=== PATIENT | male | born 1935 | race Caucasian/White ===

== ENCOUNTER 2019-10-30 18:41 | Inpatient (IN) | payer MEDICARE, BC, SELFPAY ==
[2019-10-30 18:49] VITALS: BP 175/83; PULSE 67; RESP 18; TEMP 36.4; O2SAT 97; BMI 29.0
[2019-10-30 19:25] LABS: Add Manual Diff / Slide Review NO; Basophils Absolute Auto 0 /uL (0-100); Basophils Percent Auto 0.1 % (0-2); Eosinophils Absolute Auto 0 /uL (0-450); Eosinophils Percent Auto 0.2 % (2-4); Hematocrit 42.2 % (41-53); Hemoglobin 14.5 g/dL (13.5-17.5); Lymphocytes Absolute Auto 700 /uL (1100-4500); Lymphocytes Percent Auto 10.1 % (25-40); Mean Corpuscular HGB Conc 34.3 % (30-36); Mean Corpuscular Hemoglobin 34.1 PG (26-34); Mean Corpuscular Volume 99.4 fL (80-100); Monocytes Absolute Auto 600 /uL (0-900); Monocytes Percent Auto 8.4 % (3-14); Neutrophils Absolute Auto 5600 /uL (1500-7000); Neutrophils Percent Auto 81.2 % (50-75); Platelet Count 182 X10^3/uL (150-400); Red Blood Cell Count 4.24 X10^6/uL (4.5-5.9); Red Cell Distribution Width 13.6 % (11.6-14.8); White Blood Cell Count 6.8 X10^3/uL (4.5-11.0)
[2019-10-30 19:33] LABS: Prothrombin Time 11.8 SECONDS (10.1-12.7)
[2019-10-30 19:35] LABS: PTT Partial Thromboplastin Tim 27 SECONDS (26.4-36.2)
[2019-10-30 19:36] LABS: Alanine Aminotransferase 20 IU/L (<50); Albumin 4.9 g/dL (3.5-5.0); Albumin Globulin Ratio 1.4 (1.0-2.8); Alkaline Phosphatase 46 U/L (38-126); Aspartate Aminotransferase 28 IU/L (17-59); BUN Creatinine Ratio 22.9 (6-22); Blood Urea Nitrogen 32 mg/dL (9-20); Calcium 10.2 mg/dL (8.4-10.2); Carbon Dioxide 24 mmol/L (22-32); Chloride 102 mmol/L (98-107); Estimated Glomerular Filt Rate 48.3 mL/min (>60); Globulin 3.4 g/dL (1.7-4.1); Glucose 124 mg/dL (80-110); HEMOLYSIS < 15 (0-50); Lipase 34 U/L (23-300); Potassium 3.9 mmol/L (3.4-5.1); Sodium 137 mmol/L (137-145); Total Protein 8.3 g/dL (6.3-8.2)
--- NOTE | 2019-10-30 20:39 | DI.RAD.S_ITS ---
PROCEDURE: XR ACUTE ABDOMEN SERIES INDICATIONS: Abdominal pain TECHNIQUE: One view chest and two views of the abdomen were acquired. COMPARISON: [facility], CT, ABDOMEN/PELVIS WITH CONTRAST, 12/21/2016, 22:14. [facility], CR, ABDOMEN ACUTE SERIES, 11/27/2009, 8:29. FINDINGS: Surgical changes and devices: None. Chest: Lungs are clear. Mild cardiomegaly.. No pleural effusions. No pneumoperitoneum. Abdomen: Colon is diffusely dilated. Large amount of fecal debris. Transverse colon measures up to 11.5 cm. And not exclude sigmoid volvulus. No suspicious calcifications. Visualized solid organ contours appear normal. Bones: No suspicious bony lesions. IMPRESSION: Diffusely dilated colon with large amount of fecal debris. Transverse colon measures up to 11.5 cm. Cannot exclude sigmoid volvulus. Comment: It is noted that the patient is scheduled to undergo CT abdomen and pelvis. Dictated by: Aris Louis M.D. on 10/30/2019 at 21:11 Approved by: Aris Louis M.D. on 10/30/2019 at 21:15
--- NOTE | 2019-10-30 20:47 | ED_ITS ---
HPI - Abdominal Pain General Chief Complaint: Abdominal Pain Stated Complaint: bloated/painful stomach and mid chest/no BM Time Seen by Provider: 10/30/19 20:24 Source: patient and family Mode of arrival: Family Vehicle Limitations: no limitations History of Present Illness HPI narrative: 84-year-old male nonsmoker presents with his in the chief complaint of no bowel movements for approximately 10 days, decreased flatus and worsening abdominal pain. He denies any vomiting but has had nausea. He denies any fever chills nor injury. He has had no dysuria, frequency or urgency. He denies any history of liver failure or ascites. He states his pain is worse when he moves and improves with rest. He denies any abdominal surgeries or history of bowel obstruction. He has had no change in medications or diet MD complaint: abdominal pain Onset (ago): day(s) Pain Consistency: constant Location: diffuse Severity: moderate Quality: cramping and aching Radiation: none Migration to: no migration Relieving factors: rest Exacerbating factors: movement Associated symptoms: nausea and constipation Related Data Home Medications Medication Instructions Recorded Confirmed [MILK THISTLE] 140 mg PO DAILY #0 11/25/09 10/31/19 simvastatin 10 mg PO HS #0 12/21/16 10/30/19 aspirin 81 mg PO DAILY 10/30/19 10/30/19 diltiazem HCl 240 mg PO QAM 10/30/19 10/30/19 lisinopril-hydrochlorothiazide 1 tab PO DAILY 10/30/19 10/30/19 Allergies Allergy/AdvReac Type Severity Reaction Status Date / Time No Known Drug Allergies Allergy Verified 10/30/19 18:54 Review of Systems Constitutional Constitutional: Denies chills, Denies fatigue, Denies fever(s), Denies frequent falls, Denies lethargy and Denies weakness Eyes Eyes: Denies change in vision, Denies eye discharge, Denies irritation and Denies loss of vision ENT Ears, Nose, Mouth, and Throat: Denies change in voice, Denies dizziness, Denies neck pain, Denies sore throat and Denies throat swelling Cardiovascular Cardiovascular: Denies chest pain, Denies irregular heart rhythm, Denies lightheadedness, Denies palpitations, Denies dyspnea, Denies dyspnea on exertion and Denies orthopnea Respiratory Respiratory: Denies cough, Denies dyspnea, Denies dyspnea on exertion and Denies wheezing Gastrointestinal Gastrointestinal: Reports abdominal pain, Reports bloating, Denies change in bowel habits, Reports constipation, Denies diarrhea, Reports nausea and Denies vomiting Genitourinary Genitourinary: Denies hematuria, Denies flank pain, Denies urinary incontinence and Denies urinary urgency Musculoskeletal Musculoskeletal: Denies back pain, Denies muscle weakness, Denies neck pain, Denies numbness and Denies tingling Integumentary/Breasts Skin/Breast: Denies pruritus, Denies erythema, Denies rash and Denies wounds Neurologic Neurologic: Denies behavioral changes, Denies confusion, Denies dizziness, Denies frequent falls, Denies loss of vision, Denies numbness, Denies tingling and Denies weakness Psychiatric Psychiatric: Denies anxiety, Denies behavioral changes, Denies confusion, Denies depression, Denies homicidal ideation and Denies suicidal ideation Endocrine Endocrine: Denies fatigue, Denies flushing and Denies palpitations Hematologic/Lymphatic Hematologic/Lymphatic: Denies easy bruising Allergic/Immunologic Allergic/Immunologic: Denies urticaria, Denies throat swelling and Denies wheezing Patient History Social History household members: spouse Smoking Status: Never smoker alcohol intake: current Smoking Status: Never smoker alcohol intake frequency: 0-2 drinks per day Alcohol type: wine Exam Narrative Exam Narrative: GENERAL: [84] year old patient appears stated age. Well- nourished, well-developed patient, in mild distress. HEAD: Atraumatic. Normocephalic. EYES: Pupils equal round and reactive. Extraocular motions intact. No scleral icterus. No injection or drainage. ENT: Nose without bleeding, purulent drainage. Throat without erythema, tonsi llar hypertrophy or exudate. Airway patent. NECK: Trachea midline. Non tender CARDIOVASCULAR: Regular rate and rhythm without murmurs, gallops, or rubs. RESPIRATORY: Clear to auscultation. Breath sounds equal bilaterally. No wheezes, rales, or rhonchi. GASTROINTESTINAL: Abdomen firm, distended, no fluid wave, generally tender EXTREMITIES: No edema or joint tenderness. BACK: Nontender without deformity or crepitance. No flank tenderness. NEURO: AOx3. SKIN: No rash or erythema of visible areas Initial Vital Signs Initial Vital Signs: Vital Signs Temperature 97.5 F L 10/30/19 18:49 Pulse Rate 67 10/30/19 18:49 Respiratory Rate 18 10/30/19 18:49 Blood Pressure 175/83 H 10/30/19 18:49 Pulse Oximetry 97 10/30/19 18:49 Course Orders Ordered: Acetaminophen (Tylenol) 650 mg PO Q6HR PRN PRN Reason: Pain, Mild (1-3) Gabapentin (Neurontin) 300 mg PO BID [facility] Heparin Sodium (Porcine) (Heparin) 5,000 unit SUBCUT BID [facility] Hydromorphone HCl (Dilaudid) 0.5 mg IV Q5M PRN PRN Reason: Pain, Severe (7-10) Sodium Chloride (Normal Saline 0.9%) 1,000 mls @ 125 mls/hr IV CONT PRASHANTH Last Admin: 10/31/19 03:45 Dose: 125 mls/hr Documented by: GARRETT Morphine Sulfate (Morphine) 2 mg IV Q4HR PRN PRN Reason: Pain, Moderate (4-6) Last Admin: 10/31/19 03:45 Dose: 2 mg Documented by: GARRETT Naloxone HCl (Narcan) 0.2 mg IV Q2MIN PRN PRN Reason: Opiate Reversal Ondansetron HCl (Zofran) 4 mg IV Q4HR PRN PRN Reason: Nausea And Vomiting Ranitidine HCl (Zantac) 150 mg PO BID [facility] Simethicone (Mylicon) 80 mg PO QID [facility] Discontinued Medications Sodium Chloride 1,000 ml/ (Bacitracin 50,000 unit) 0 ml IRR NOW ONE Stop: 10/31/19 00:56 Last Admin: 10/31/19 00:59 Dose: 1,000 irrig.soln Documented by: JHOAN Hydromorphone HCl (Dilaudid) 0.5 mg IV Q5MIN PRN PRN Reason: Pain, Moderate (4-6) Hydromorphone HCl (Dilaudid) 0.5 mg IV Q5MIN PRN PRN Reason: Pain, Severe (7-10) Last Admin: 10/31/19 02:22 Dose: 0.5 mg Documented by: SAMSONUNMYLENE Admin: 10/31/19 02:09 Dose: 0.5 mg Documented by: SOURAV Sodium Chloride (Normal Saline 0.9%) 1,000 mls @ 125 mls/hr IV CONT PRASHANTH Last Infusion: 10/31/19 00:00 Dose: 125 mls/hr Documented by: Admin: 10/30/19 23:26 Dose: 125 mls/hr Documented by: MJ Lactated Ringer's (Lactated Ringers) 1,000 mls @ 42 mls/hr IV CONT PRASHANTH Last Infusion: 10/31/19 02:40 Dose: 0 mls/hr Documented by: Admin: 10/31/19 00:00 Dose: 42 mls/hr Documented by: DADA Cefotetan Disodium/Dextrose (Cefotan) 2 gm in 50 mls @ 100 mls/hr IV NOW ONE Stop: 10/31/19 01:14 Last Infusion: 10/31/19 00:25 Dose: 0 mls/hr Documented by: Admin: 10/31/19 00:10 Dose: 100 mls/hr Documented by: DADA Metoclopramide HCl (Reglan) 10 mg IV NOW PRN PRN Reason: Nausea And Vomiting Ondansetron HCl (Zofran) 4 mg IV NOW ONE Stop: 10/30/19 21:16 Last Admin: 10/30/19 21:36 Dose: 4 mg Documented by: MJ Ondansetron HCl (Zofran) 4 mg IV NOW PRN PRN Reason: Nausea And Vomiting Oxycodone/Acetaminophen (Percocet 5/325) 1 tab PO PACUNOW PRN PRN Reason: Mild or Moderate Pain Vital Signs Vital signs: Vital Signs - 8 hr 10/30/19 18:49 10/30/19 21:45 Temperature 97.5 F L Pulse Rate 67 69 Respiratory Rate 18 18 Blood Pressure 175/83 H Blood Pressure [Right Arm] 146/76 H Pulse Oximetry 97 99 MDM - Abdominal Pain Lab Data Result diagrams: 10/31/19 06:40 10/31/19 06:40 Labs: Lab Results 10/30/19 10/30/19 10/30/19 Range/Units 19:11 19:11 19:11 WBC 6.8 (4.5-11.0) X10^3/uL RBC 4.24 L (4.5-5.9) X10^6/uL Hgb 14.5 (13.5-17.5) g/dL Hct 42.2 (41-53) % MCV 99.4 (80-100) fL MCH 34.1 H (26-34) PG MCHC 34.3 (30-36) % RDW 13.6 (11.6-14.8) % Plt Count 182 (150-400) X10^3/uL Neut % (Auto) 81.2 H (50-75) % Lymph % (Auto) 10.1 L (25-40) % [place] % (Auto) 8.4 (3-14) % Eos % (Auto) 0.2 L (2-4) % Baso % (Auto) 0.1 (0-2) % Neut # (Auto) 5600 (2885-8397) /uL Lymph # (Auto) 700 L (5013-1583) /uL [place] # (Auto) 600 (0-900) /uL Eos # (Auto) 0 (0-450) /uL Baso # (Auto) 0 (0-100) /uL PT 11.8 (10.1-12.7) SECONDS INR 1.0 (0.9-1.3) APTT 27 (26.4-36.2) SECONDS Sodium 137 (137-145) mmol/L Potassium 3.9 (3.4-5.1) mmol/L Chloride 102 (98-107) mmol/L Carbon Dioxide 24 (22-32) mmol/L BUN 32 H (9-20) mg/dL Creatinine 1.40 H (0.66-1.25) mg/dL Estimated GFR 48.3 L (>60) mL/min BUN/Creatinine Ratio 22.9 H (6-22) Glucose 124 H (80-110) mg/dL Lactate (0.7-2.1) mmol/L Calcium 10.2 (8.4-10.2) mg/dL Total Bilirubin 1.0 (0.2-1.3) mg/dL AST 28 (17-59) IU/L ALT 20 (<50) IU/L Alkaline Phosphatase 46 (38-126) U/L Total Protein 8.3 H (6.3-8.2) g/dL Albumin 4.9 (3.5-5.0) g/dL Globulin 3.4 (1.7-4.1) g/dL Albumin/Globulin Ratio 1.4 (1.0-2.8) Lipase 34 (23-300) U/L Blood Type Antibody Screen 10/30/19 10/30/19 Range/Units 19:11 21:25 WBC (4.5-11.0) X10^3/uL RBC (4.5-5.9) X10^6/uL Hgb (13.5-17.5) g/dL Hct (41-53) % MCV (80-100) fL MCH (26-34) PG MCHC (30-36) % RDW (11.6-14.8) % Plt Count (150-400) X10^3/uL Neut % (Auto) (50-75) % Lymph % (Auto) (25-40) % [place] % (Auto) (3-14) % Eos % (Auto) (2-4) % Baso % (Auto) (0-2) % Neut # (Auto) (0220-3872) /uL Lymph # (Auto) (4802-4942) /uL [place] # (Auto) (0-900) /uL Eos # (Auto) (0-450) /uL Baso # (Auto) (0-100) /uL PT (10.1-12.7) SECONDS INR (0.9-1.3) APTT (26.4-36.2) SECONDS Sodium (137-145) mmol/L Potassium (3.4-5.1) mmol/L Chloride (98-107) mmol/L Carbon Dioxide (22-32) mmol/L BUN (9-20) mg/dL Creatinine (0.66-1.25) mg/dL Estimated GFR (>60) mL/min BUN/Creatinine Ratio (6-22) Glucose (80-110) mg/dL Lactate 1.2 (0.7-2.1) mmol/L Calcium (8.4-10.2) mg/dL Total Bilirubin (0.2-1.3) mg/dL AST (17-59) IU/L ALT (<50) IU/L Alkaline Phosphatase (38-126) U/L Total Protein (6.3-8.2) g/dL Albumin (3.5-5.0) g/dL Globulin (1.7-4.1) g/dL Albumin/Globulin Ratio (1.0-2.8) Lipase (23-300) U/L Blood Type A Positive Antibody Screen Negative Discharge Plan Departure Patient Disposition: Admitted As Inpatient Clinical Impression: Volvulus of sigmoid colon Discharge Date/Time: 10/30/19 23:59 Admit Date/Time: 10/30/19 23:07 Admit Provider: Franco Lopez
--- NOTE | 2019-10-30 21:02 | DI.CT.S_ITS ---
PROCEDURE: CT ABDOMEN PELVIS W CON INDICATIONS: bowel obstruction TECHNIQUE: After the administration of intravenous contrast, 5 mm thick sections acquired from the diaphragm to the symphysis. 5 mm coronal and sagittal reformats were acquired. For radiation dose reduction, the following was used: automated exposure control, adjustment of mA and/or kV according to patient size. COMPARISON: [facility], CT, ABDOMEN/PELVIS WITH CONTRAST, 12/21/2016, 22:14. [facility], CR, XR ACUTE ABDOMEN SERIES, 10/30/2019, 20:36. [facility], CT, ABDOMEN/PELVIS WITH CONTRAST, 11/25/2009, 8:15. FINDINGS: Image quality: Excellent. ABDOMEN: Lung bases: Lung bases are clear. Heart size is normal. There is a moderate hiatal hernia. Solid organs: Liver is normal in size and enhancement. Stable low-density lesions are seen within the liver, likely representing cysts or hemangiomas. Gallbladder wall does not appear thickened. Biliary system is non dilated. Pancreas enhances normally. Spleen is normal in size and enhancement. Incidental note is made of an accessory spleen along the anterior aspect of the primary spleen. No adrenal nodules. Kidneys demonstrate normal size and enhancement, without hydronephrosis. Senescent cobwebbing can be seen surrounding each kidney. Peritoneum and bowel: The distal colon is distended upon itself, with swirling of blood vessels which is best observed on coronal images. The colon is prominent dilated, measuring up to 12.6 cm. There is a peaked appearance at the site of distal obstruction, as seen on series 2 image 53. A moderate amount of stool is seen within the colon. No dilated loops of small bowel are seen. No free air or significant free fluid can be seen. A gastric tube is coiled within the stomach, with the tip at the fundus of the stomach. Nodes and vessels: No retroperitoneal or mesenteric adenopathy by size criteria. Aorta and inferior vena cava are normal in size. Atherosclerotic calcification is noted. Miscellaneous: A mild periumbilical hernia is seen, containing fat. PELVIS: Genitourinary: Bladder wall thickness is normal. The prostate is enlarged, measuring 7.1 cm craniocaudal. Miscellaneous: No inguinal adenopathy. Bilateral fat containing inguinal hernias are seen. Bones: No suspicious bony lesions. No vertebral body compression fractures. Prominent lower lumbar spine degenerative changes are seen. Milder degenerative changes are seen elsewhere. Mild retrolisthesis is seen at the L2-L3 level. IMPRESSION: Sigmoid volvulus. There is profound dilatation of the colon, which measures up to 12.6 cm. Incidental note is made of: Moderate hiatal hernia Stable cysts or liver hemangiomas Fat containing periumbilical hernia Bilateral fat containing inguinal hernias Prominent prostate Note: No significant discrepancy from the preliminary report. Dictated by: Yaya Steinberg M.D. on 10/31/2019 at 8:29 Approved by: Yaya Steinbegr M.D. on 10/31/2019 at 8:37
[2019-10-30 21:19] LABS: Lactate (Lactic Acid) 1.2 mmol/L (0.7-2.1)
[2019-10-30] MEDS: LIDOCAINE 1% (PF) 2 ML ×2 (21:22→21:35)
[2019-10-30] MEDS: ONDANSETRON 4 MG/2 ML INJ IV (21:36)
[2019-10-30 21:45] VITALS: BP 146/76; PULSE 69; RESP 18; O2SAT 99
--- NOTE | 2019-10-30 21:45 | PC.NURSE ---
NGT placed, 18 fr right nare w/ lidocaine nasal pre procedure. Pt tolerated well. + auscultation over abd w/ relief felt by patient after placement, @ 150 cc blood tinged clear fluid out.
[2019-10-30 23:00] VITALS: BP 163/82; PULSE 65; RESP 19; O2SAT 96
[2019-10-30] MEDS: SODIUM CHLORIDE 0.9% 1,000 ML 125 ML IV (23:26)
--- NOTE | 2019-10-30 23:26 | PM.HP.1 ---
History of Present Illness History of Present Illness Date Patient Seen: 10/30/19 Time Patient Seen: 23:26 Chief complaint: bloated/painful stomach and mid chest/no BM Narrative: 84-year-old white male with acute onset of significant abdominal pain today although he has had progressive distention for some months. He has had increasing difficulty with bowel movements and has been taking frequent laxatives. Last colonoscopy approximately 12 years ago. In the emergency department a CT scan was done which shows a sigmoid volvulus. His cecum is 11 cm in diameter. Patient History Family & Social History Safety & Behavioral: Feels Safe in Current Yes Environment Been Physically Hurt or No Threatened By a Person Tobacco & Substance use: Smoking Status Never smoker alcohol intake frequency 0-2 drinks per day Meds Home Medications and Allergies Home Medications Medication Instructions Recorded Confirmed Type [MILK THISTLE] 140 mg PO #0 11/25/09 History simvastatin 10 mg PO HS #0 12/21/16 History Allergies Allergy/AdvReac Type Severity Reaction Status Date / Time No Known Drug Allergies Allergy Verified 10/30/19 18:54 Review of Systems Review of Systems ROS: Yes All systems reviewed with the patient and are negative except as otherwise documented Exam Vital Signs (past 8 hours): - 10/30/19 18:49 10/30/19 21:45 Temperature 97.5 F L Pulse Rate 67 69 Respiratory Rate 18 18 Blood Pressure 175/83 H Blood Pressure [Right Arm] 146/76 H Pulse Oximetry 97 99 Oxygen Delivery Method Room Air Narrative Exam Narrative: Patient is alert and oriented complaining of abdominal distention and abdominal pain Ears nose and throat are unremarkable Lungs are clear with no rales or wheezes Heart regular rhythm no murmur Abdomen massively distended tympanitic and tender throughout Remaining physical is unremarkable Neurologic intact Objective Labs Result Diagrams: 10/30/19 19:11 10/30/19 19:11 Labs: Laboratory Results - last 24 hr 10/30/19 10/30/19 10/30/19 19:11 19:11 19:11 WBC 6.8 RBC 4.24 L Hgb 14.5 Hct 42.2 MCV 99.4 MCH 34.1 H MCHC 34.3 RDW 13.6 Plt Count 182 Neut % (Auto) 81.2 H Lymph % (Auto) 10.1 L [place] % (Auto) 8.4 Eos % (Auto) 0.2 L Baso % (Auto) 0.1 Neut # (Auto) 5600 Lymph # (Auto) 700 L [place] # (Auto) 600 Eos # (Auto) 0 Baso # (Auto) 0 PT 11.8 INR 1.0 APTT 27 Sodium 137 Potassium 3.9 Chloride 102 Carbon Dioxide 24 BUN 32 H Creatinine 1.40 H Estimated GFR 48.3 L BUN/Creatinine Ratio 22.9 H Glucose 124 H Lactate Calcium 10.2 Total Bilirubin 1.0 AST 28 ALT 20 Alkaline Phosphatase 46 Total Protein 8.3 H Albumin 4.9 Globulin 3.4 Albumin/Globulin Ratio 1.4 Lipase 34 Blood Type Antibody Screen 10/30/19 10/30/19 19:11 21:25 WBC RBC Hgb Hct MCV MCH MCHC RDW Plt Count Neut % (Auto) Lymph % (Auto) [place] % (Auto) Eos % (Auto) Baso % (Auto) Neut # (Auto) Lymph # (Auto) [place] # (Auto) Eos # (Auto) Baso # (Auto) PT INR APTT Sodium Potassium Chloride Carbon Dioxide BUN Creatinine Estimated GFR BUN/Creatinine Ratio Glucose Lactate 1.2 Calcium Total Bilirubin AST ALT Alkaline Phosphatase Total Protein Albumin Globulin Albumin/Globulin Ratio Lipase Blood Type A Positive Antibody Screen Negative Assessment & Plan Assessment & Plan narrative: Patient has a sigmoid volvulus with massive cecal distention at 11 cm. My plan is exploratory laparotomy reduction of the volvulus possibly resection if it is ischemic. Patient understands and agrees with no unanswered questions. He is aware that he may need a resection and may require a colostomy.
[2019-10-31] VITALS (18 sets, daily range): BP systolic 131–183; BP diastolic 69–92; PULSE 62–89; RESP 9–19; TEMP 36.1–37.3; O2SAT 91–98; BMI 29.0
[2019-10-31] MEDS: LACTATED RINGERS 1,000 ML 42 ML IV
--- NOTE | 2019-10-31 | PATH_ITS ---
[facility] Accession Number: [id number] . 01 Material submitted: . colon - SIGMOID AND DESCENDING COLON VOLVULUS . 02 Diagnosis: Sigmoid and Descending Colon Volvulus, Resection (Length 85 cm): Segment of bowel with a thinned bowel wall (approximately 4 cm in length) present 18.5 cm from the nearest resection margin, morphologically consistent with clinical impression of volvulus. Patchy regions of hyperplastic and mildly ischemic mucosal change. Small, calcified submucosal nodule (7 mm in greatest dimension) of uncertain etiology present 13.5 cm from the nearest resection margin. Resection margins are viable and without significant histomorpho- logic abnormality. Two lymph nodes with no significant histomorphologic abnormality (0/2). Negative for dysplasia or malignancy. [facility] 11/05/2019 0903 Local . 02 Electronically signed: . Katya Bobby MD, Pathologist NPI- [id number] . 01 Gross description: . Received in formalin, labeled sigmoid and descending colon volvulus, is an unoriented segment of colon (length-85 cm, resection margin #1 diameter-2.8 cm, resection margin #2 diameter-8.2 cm) with attached adipose tissue (up to 6.5 cm in depth). The resection margins are received stapled. The serosa is victor smooth and shiny. The mucosa is victor with normal folds with a focally thin area (4.0 x 3.5 cm) located 18.5 cm from resection margin #1. A victor-white apparently mineralized subserosal nodule (0.7 x 0.7 x 0.5 cm) is identified 13.5 cm from resection margin #2. No other nodules, masses or lesions are identified. Multiple possible lymph nodes (0.1 cm-0.3 cm) are identified. The resection margins are inked blue. Section code: (A1) resection margin #1, longitudinal customer counter representative sections; (A2) resection margin #2, customer counter representative longitudinal sections; (A3-A8) customer counter representative serial sections submitted from resection margin #1 to #2; (A9) multiple intact lymph nodes. Note: The tissue in cassette A6 has been decalcified. The specimen has been reviewed by Dr. Willy Desai. ([id number]) /[facility] 11/03/[address] [place] [address] . 02 Pathologist provided ICD-10: K56.2 . 02 CPT . 068932, [id number] Performed at: 01 [facility] [address] [facility], [place], [place] [id number] MD Sancho Desai MD Phone: [phone] Performed at: 02 [facility] [address] [place], [place] [id number] MD Nicole Matute MD Phone: [phone]
[2019-10-31] MEDS: CEFOTETAN 2 GM/50 ML PIGGYBACK IV (00:10)
[2019-10-31] MEDS: SODIUM CHLORIDE IRRIG SOLUTION 1,000 ML, BACITRACIN 50,000 UNIT IRR (00:59)
--- NOTE | 2019-10-31 01:46 | PM.OP.1 ---
Operative Date/Time/Diagnoses Date of procedure: 10/31/19 Time of procedure: 01:46 Pre-op diagnosis: Sigmoid volvulus with colonic obstruction Post-op diagnosis: same Procedure & Clinicians Procedure: Resection of sigmoid and descending colon with colorectal anastomosis Same procedure as scheduled: Yes Surgeon: Franco Lopez Click Yes if Unassisted: Yes Anesthesia Type: General Operative Notes Findings: Completely obstructed colon from sigmoid volvulus with massive llanos colonic distension cecum measuring 11 cm across Closure Type: primary Specimen(s): other (Sigmoid and descending colon) Estimated Blood Loss (mL): 100 Blood products transfused: none Procedure in detail: The patient was properly identified during surgical pause. Under general endotracheal anesthesia he was prepped and draped in a sterile fashion exposure of the mid abdomen. Midline incision was made the abdomen explored. The patient had massive colonic distention with a huge cecum transverse colon there was a marked dilatation to the sigmoid which had experienced volvulus. It had the appearance of a chronic recurring nature because the descending colon and sigmoid were markedly lengthened. There is virtually no peristalsis in the sigmoid segment after the volvulus was reduced although it did appear viable. Because of the flaccidity and massive elongation and obvious likelihood of recurrence of sigmoid volvulus I resected the sigmoid and descending colon and did a colo colonic anastomosis or colorectal anastomosis the anastomosis was at the pelvic brim. The proximal and distal sigmoid descending colon were divided with a VICTOR HUGO stapler. The intervening mesentery taken down with the Thunder beat Harmonic scalpel. There was excellent hemostasis. A [id number] functional end-to-end anastomosis was created with the VICTOR HUGO stapler at the pelvic brim. There was virtually no stool within the colon or rectum at the anastomotic site. Required enterotomies for the anastomosis were closed with a TA 60. The entire anastomosis reinforced with seromuscular silks. The anastomosis was patulous and air was noted to pass into the rectum through the anastomosis. The pelvis and abdominal cavity irrigated with copious bacitracin saline and aspirated dry there was no bleeding. The large mesenteric defect closed with running 3 0 Vicryl. A 10 mm Ernesto-Ponce drain was placed in the depth of the pelvis and brought out through the left lower quadrant of the abdomen and sutured to the skin with fine nylon. Midline fascia closed with 1. PDS. Subcu irrigated and the skin stapled sterile dressings applied the procedure was tolerated in a stable fashion. Patient was returned to the recovery room to be taken to intensive care postoperatively. Complications: none Post-operative Condition: stable Disposition: PACU
[2019-10-31] MEDS: HYDROMORPHONE 2 MG INJ 0.5 MG IV ×2 (02:09→02:22)
--- NOTE | 2019-10-31 02:18 | SUR.PHASEI ---
Dr. Lopez notified trujillo draining pink tinged urine, MD evaluated trujillo bag. No new orders. Also, discussed emptied 80mls from MACK drain. VVO to remove NG tube which was done without difficulty.
--- NOTE | 2019-10-31 03:07 | SUR.PHASEI ---
Patient transferred to the floor on o2 monitor, with belongings bags x2. Patient's spouse reported having taken his wallet home. VS stable, IV saline locked. Report given to Rea. Small to moderate amt of sero-sang fluid to lower abd dressing, binder in place. ronnie and jinny patent.
[2019-10-31] MEDS: SODIUM CHLORIDE 0.9% 1,000 ML 125 ML IV (03:45)
[2019-10-31] MEDS: MORPHINE 2 MG/ML INJ IV ×3 (03:45→17:12)
[2019-10-31 06:51] LABS: Add Manual Diff / Slide Review NO; Basophils Absolute Auto 0 /uL (0-100); Basophils Percent Auto 0.1 % (0-2); Eosinophils Absolute Auto 0 /uL (0-450); Hematocrit 41.3 % (41-53); Hemoglobin 13.9 g/dL (13.5-17.5); Lymphocytes Absolute Auto 300 /uL (1100-4500); Mean Corpuscular HGB Conc 33.7 % (30-36); Mean Corpuscular Hemoglobin 33.9 PG (26-34); Mean Corpuscular Volume 100.4 fL (80-100); Monocytes Absolute Auto 600 /uL (0-900); Monocytes Percent Auto 5.9 % (3-14); Neutrophils Absolute Auto 9500 /uL (1500-7000); Platelet Count 153 X10^3/uL (150-400); Red Blood Cell Count 4.11 X10^6/uL (4.5-5.9); Red Cell Distribution Width 13.7 % (11.6-14.8); White Blood Cell Count 10.4 X10^3/uL (4.5-11.0)
[2019-10-31 07:00] LABS: BUN Creatinine Ratio 27.5 (6-22); Blood Urea Nitrogen 33 mg/dL (9-20); Calcium 9.1 mg/dL (8.4-10.2); Carbon Dioxide 26 mmol/L (22-32); Chloride 102 mmol/L (98-107); Estimated Glomerular Filt Rate 57.7 mL/min (>60); Glucose 136 mg/dL (80-110); HEMOLYSIS < 15 (0-50); Potassium 4.6 mmol/L (3.4-5.1); Sodium 137 mmol/L (137-145)
--- NOTE | 2019-10-31 07:22 | PC.ADMIT ---
[facility] Admission Note: The patient,Ulises Garcia,84 y/o, was given written information regarding hospital policies, unit procedures and contact persons. Patient's smoking status: Never smoker. Vital Signs - 8 hr 10/31/19 01:51 10/31/19 01:56 10/31/19 02:01 Temperature 97.7 F Pulse Rate 66 64 69 Respiratory Rate 9 L 13 11 L Blood Pressure 164/78 H 170/88 H 177/85 H Pulse Oximetry 93 95 96 10/31/19 02:06 10/31/19 02:16 10/31/19 02:26 Temperature Pulse Rate 64 62 65 Respiratory Rate 11 L 9 L 10 L Blood Pressure 183/92 H 164/82 H 167/83 H Pulse Oximetry 98 95 91 10/31/19 02:32 10/31/19 02:41 10/31/19 02:45 Temperature 97.1 F L Pulse Rate 62 64 66 Respiratory Rate 11 L 16 10 L Blood Pressure 149/80 H 164/80 H 157/76 H Pulse Oximetry 95 94 95 10/31/19 03:00 10/31/19 03:30 10/31/19 04:00 Temperature 97.0 F L 97.1 F L 97.1 F L Pulse Rate 69 66 68 Respiratory Rate 18 18 19 Blood Pressure 179/81 H 148/69 H 153/72 H Pulse Oximetry 96 94 95 10/31/19 05:00 10/31/19 06:00 Temperature 97.7 F 97.9 F Pulse Rate 67 69 Respiratory Rate 11 L 12 Blood Pressure 162/72 H 156/75 H Pulse Oximetry 96 96 Admitted to room 230 at 0300, drowsy, oriented x3. SR, 1st AVB, BBB on telemetry. VSS, SpO2 >94% on 2L NC, medicated with 2mg IV morphine for pain-effective. 50ml sang drainage from MACK, abdominal binder in place over midline drsg. 250ml from Deluna since admit, NS at 125ml/hr.
[2019-10-31] MEDS: raNITIdine 150 MG CAPSULE PO ×2 (09:45→20:54)
[2019-10-31] MEDS: HEPARIN 5,000 UNIT/ML VIAL 5000 UNIT SUBCUT ×2 (09:45→20:54)
[2019-10-31] MEDS: SIMETHICONE 80 MG TABLET PO ×4 (09:45→20:54)
--- NOTE | 2019-10-31 10:55 | CM.DANOTE ---
DCP: Case received, EMR reviewed and met with patient. Introduced self and role. Was able to converse with patient to obtain information regarding baseline activity level and health information. DCP assessment completed with information currently available. Patient is an 84 year old male who admitted yesterday evening to the care of the hospitalist [place]. PCP: Dr. Skinner. Payer: confirmed: Medicare/[employer]. Patient came to the hospital via private family vehicle secondary to abdominal bloating, and no BM for several days. 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 Patient had surgery yesterday, a resection of sigmoid descending colon. Met with patient. He is alert and oriented. He was sitting up in bed. Patient stated that he had had abdominal bloating before. He lives with his , Rekha, in [place]. He is independent, drives, does not use any DME supplies. P: DCP to continue to follow. Patient should be able to go home when he is medically stable. Rocío Em RN/Data Processing Control Clerk
--- NOTE | 2019-10-31 11:30 | P.PN_ITS ---
Subjective Subjective Date Patient Seen: 10/31/19 Time Patient Seen: 11:30 Interval history: Patient is about 12 hours post resection of a huge sigmoid volvulus. He has a primary colo rectal anastomosis. He is passing flatus. Patient feels much better than preoperatively. He is tolerating clear liquids. Exam Vital Signs (past 8 hours): - 10/31/19 04:00 10/31/19 05:00 10/31/19 06:00 Temperature 97.1 F L 97.7 F 97.9 F Pulse Rate 68 67 69 Respiratory Rate 19 11 L 12 Blood Pressure 153/72 H 162/72 H 156/75 H Pulse Oximetry 95 96 96 10/31/19 08:00 Temperature 98.0 F Pulse Rate 81 Respiratory Rate 15 Blood Pressure 159/83 H Pulse Oximetry 95 Oxygen Delivery Method Room Air Oxygen Flow Rate 2.5 Narrative Exam Narrative: Patient is alert and oriented. Has mild to moderate incisional pain. Abdomen much less distended. Ernesto drain producing moderate amount of serosanguineous fluid Deluna catheter reveals clear urine Objective Labs Result Diagrams: 10/31/19 06:40 10/31/19 06:40 Labs: Laboratory Results - last 24 hr 10/30/19 10/30/19 10/30/19 19:11 19:11 19:11 WBC 6.8 RBC 4.24 L Hgb 14.5 Hct 42.2 MCV 99.4 MCH 34.1 H MCHC 34.3 RDW 13.6 Plt Count 182 Neut % (Auto) 81.2 H Lymph % (Auto) 10.1 L [place] % (Auto) 8.4 Eos % (Auto) 0.2 L Baso % (Auto) 0.1 Neut # (Auto) 5600 Lymph # (Auto) 700 L [place] # (Auto) 600 Eos # (Auto) 0 Baso # (Auto) 0 PT 11.8 INR 1.0 APTT 27 Sodium 137 Potassium 3.9 Chloride 102 Carbon Dioxide 24 BUN 32 H Creatinine 1.40 H Estimated GFR 48.3 L BUN/Creatinine Ratio 22.9 H Glucose 124 H Lactate Calcium 10.2 Total Bilirubin 1.0 AST 28 ALT 20 Alkaline Phosphatase 46 Total Protein 8.3 H Albumin 4.9 Globulin 3.4 Albumin/Globulin Ratio 1.4 Lipase 34 Nasal Screen MRSA (PCR) Blood Type Antibody Screen 10/30/19 10/30/19 10/31/19 19:11 21:25 03:00 WBC RBC Hgb Hct MCV MCH MCHC RDW Plt Count Neut % (Auto) Lymph % (Auto) [place] % (Auto) Eos % (Auto) Baso % (Auto) Neut # (Auto) Lymph # (Auto) [place] # (Auto) Eos # (Auto) Baso # (Auto) PT INR APTT Sodium Potassium Chloride Carbon Dioxide BUN Creatinine Estimated GFR BUN/Creatinine Ratio Glucose Lactate 1.2 Calcium Total Bilirubin AST ALT Alkaline Phosphatase Total Protein Albumin Globulin Albumin/Globulin Ratio Lipase Nasal Screen MRSA (PCR) Negative for mrsa Blood Type A Positive Antibody Screen Negative 10/31/19 10/31/19 06:40 06:40 WBC 10.4 D RBC 4.11 L Hgb 13.9 Hct 41.3 MCV 100.4 H MCH 33.9 MCHC 33.7 RDW 13.7 Plt Count 153 Neut % (Auto) 91.0 H Lymph % (Auto) 3.0 L [place] % (Auto) 5.9 Eos % (Auto) 0.0 L Baso % (Auto) 0.1 Neut # (Auto) 9500 H Lymph # (Auto) 300 L [place] # (Auto) 600 Eos # (Auto) 0 Baso # (Auto) 0 PT INR APTT Sodium 137 Potassium 4.6 Chloride 102 Carbon Dioxide 26 BUN 33 H Creatinine 1.20 Estimated GFR 57.7 L BUN/Creatinine Ratio 27.5 H Glucose 136 H Lactate Calcium 9.1 Total Bilirubin AST ALT Alkaline Phosphatase Total Protein Albumin Globulin Albumin/Globulin Ratio Lipase Nasal Screen MRSA (PCR) Blood Type Antibody Screen Assessment & Plan Assessment & Plan narrative: Patient appears fairly well recovering from a huge sigmoid volvulus resection. He is resting in bed. He will ambulate in the h alls today. He is already passing flatus per rectum. We will continue close observation for sepsis. I have slowed is IV fluids today and he will stay on a clear liquid diet. He is on subcu heparin for DVT prophylaxis.
--- NOTE | 2019-10-31 11:52 | P.CONS_ITS ---
History of Present Illness Consult details Chief complaint: bloated/painful stomach and mid chest/no BM Meds Home Medications and Allergies Home Medications Medication Instructions Recorded Confirmed Type [MILK THISTLE] 140 mg PO DAILY #0 11/25/09 10/31/19 History simvastatin 10 mg PO HS #0 12/21/16 10/30/19 History aspirin 81 mg PO DAILY 10/30/19 10/30/19 History diltiazem HCl 240 mg PO QAM 10/30/19 10/30/19 History lisinopril-hydrochlorothiazide 1 tab PO DAILY 10/30/19 10/30/19 History Allergies Allergy/AdvReac Type Severity Reaction Status Date / Time No Known Drug Allergies Allergy Verified 10/30/19 18:54 Review of Systems Review of Systems Narrative: A 10 system comprehensive review of systems was conducted with the patient and found to be negative except as above in the History of Present Illness. Exam Vital Signs (past 8 hours): - 10/31/19 04:00 10/31/19 05:00 10/31/19 06:00 Temperature 97.1 F L 97.7 F 97.9 F Pulse Rate 68 67 69 Respiratory Rate 19 11 L 12 Blood Pressure 153/72 H 162/72 H 156/75 H Pulse Oximetry 95 96 96 10/31/19 08:00 Temperature 98.0 F Pulse Rate 81 Respiratory Rate 15 Blood Pressure 159/83 H Pulse Oximetry 95 Oxygen Delivery Method Room Air Oxygen Flow Rate 2.5 Narrative Exam Narrative: General: No acute distress, well-developed, well-nourished, appropriately interactive HEENT: Normocephalic, atraumatic. External ears without defect. Pupils equal, round, and reactive to light and accommodation. Anicteric sclerae, moist conjunctivae, and no lid lag. Oropharynx free of erythema and cobble stoning with moist mucosa. Neck: Supple with full range of motion. No jugular venous distension. No bruits. No lymphadenopathy or thyromegaly. Cardiovascular: Regular rate and rhythm without murmurs, rubs, or gallops appreciated Pulmonary: Clear to auscultation bilaterally without crackles, wheezes, or rhonchi. Normal respiratory effort with no use of accessory muscles. Abdomen: Bowel tones present. Soft, nontender, nondistended. No hepatosplenomegaly or masses appreciated. Extremities: No clubbing, cyanosis, or edema. Skin: Normal temperature, turgor, and texture; no rash, ulcers, or subcutaneous nodules appreciated. Neurological: Cranial nerves grossly intact. Normal muscle strength, tone, and bulk. Reflexes, coordination, and sensory function within normal limits. No known gait impairment. Psychiatric: Normal mood and affect. Alert and oriented to person, place, and time. Objective Labs Result Diagrams: 10/31/19 06:40 10/31/19 06:40 Labs: Laboratory Results - last 24 hr 10/30/19 10/30/19 10/30/19 19:11 19:11 19:11 WBC 6.8 RBC 4.24 L Hgb 14.5 Hct 42.2 MCV 99.4 MCH 34.1 H MCHC 34.3 RDW 13.6 Plt Count 182 Neut % (Auto) 81.2 H Lymph % (Auto) 10.1 L [place] % (Auto) 8.4 Eos % (Auto) 0.2 L Baso % (Auto) 0.1 Neut # (Auto) 5600 Lymph # (Auto) 700 L [place] # (Auto) 600 Eos # (Auto) 0 Baso # (Auto) 0 PT 11.8 INR 1.0 APTT 27 Sodium 137 Potassium 3.9 Chloride 102 Carbon Dioxide 24 BUN 32 H Creatinine 1.40 H Estimated GFR 48.3 L BUN/Creatinine Ratio 22.9 H Glucose 124 H Lactate Calcium 10.2 Total Bilirubin 1.0 AST 28 ALT 20 Alkaline Phosphatase 46 Total Protein 8.3 H Albumin 4.9 Globulin 3.4 Albumin/Globulin Ratio 1.4 Lipase 34 Nasal Screen MRSA (PCR) Blood Type Antibody Screen 10/30/19 10/30/19 10/31/19 19:11 21:25 03:00 WBC RBC Hgb Hct MCV MCH MCHC RDW Plt Count Neut % (Auto) Lymph % (Auto) [place] % (Auto) Eos % (Auto) Baso % (Auto) Neut # (Auto) Lymph # (Auto) [place] # (Auto) Eos # (Auto) Baso # (Auto) PT INR APTT Sodium Potassium Chloride Carbon Dioxide BUN Creatinine Estimated GFR BUN/Creatinine Ratio Glucose Lactate 1.2 Calcium Total Bilirubin AST ALT Alkaline Phosphatase Total Protein Albumin Globulin Albumin/Globulin Ratio Lipase Nasal Screen MRSA (PCR) Negative for mrsa Blood Type A Positive Antibody Screen Negative 10/31/19 10/31/19 06:40 06:40 WBC 10.4 D RBC 4.11 L Hgb 13.9 Hct 41.3 MCV 100.4 H MCH 33.9 MCHC 33.7 RDW 13.7 Plt Count 153 Neut % (Auto) 91.0 H Lymph % (Auto) 3.0 L [place] % (Auto) 5.9 Eos % (Auto) 0.0 L Baso % (Auto) 0.1 Neut # (Auto) 9500 H Lymph # (Auto) 300 L [place] # (Auto) 600 Eos # (Auto) 0 Baso # (Auto) 0 PT INR APTT Sodium 137 Potassium 4.6 Chloride 102 Carbon Dioxide 26 BUN 33 H Creatinine 1.20 Estimated GFR 57.7 L BUN/Creatinine Ratio 27.5 H Glucose 136 H Lactate Calcium 9.1 Total Bilirubin AST ALT Alkaline Phosphatase Total Protein Albumin Globulin Albumin/Globulin Ratio Lipase Nasal Screen MRSA (PCR) Blood Type Antibody Screen
[2019-10-31] MEDS: lisinopriL 20 MG TABLET PO (12:21)
[2019-10-31] MEDS: dilTIAZem CD 240 MG CAP PO (12:22)
[2019-10-31] MEDS: SODIUM CHLORIDE 0.9% 1,000 ML 75 ML IV (12:23)
--- NOTE | 2019-10-31 14:46 | PC.NURSE ---
Day Shift Note Transferred to room 204 at 1430 via wheelchair. All belongings with patient including clothing, cell phone, and ereader tablet. NSR BBB in the 80s. Tolerating clear liquid diet. Reports pain well controlled on morphine, given x1. Up to chair today without issue. Call light within reach, using appropriately to make needs known.
[2019-10-31] MEDS: SIMVASTATIN 10 MG TABLET PO (20:54)
[2019-11-01] VITALS (13 sets, daily range): BP systolic 120–152; BP diastolic 59–79; PULSE 54–70; RESP 18–21; TEMP 36.6–37.6; O2SAT 90–98
[2019-11-01] MEDS: SODIUM CHLORIDE 0.9% 1,000 ML 75 ML IV ×2 (00:59→12:40)
[2019-11-01] MEDS: MORPHINE 2 MG/ML INJ IV ×3 (03:40→14:02)
[2019-11-01] MEDS: raNITIdine 150 MG CAPSULE PO ×2 (08:22→21:19)
[2019-11-01] MEDS: SIMETHICONE 80 MG TABLET PO ×4 (08:22→21:19)
[2019-11-01] MEDS: dilTIAZem CD 240 MG CAP PO (08:22)
[2019-11-01] MEDS: lisinopriL 20 MG TABLET PO (08:23)
[2019-11-01] MEDS: HEPARIN 5,000 UNIT/ML VIAL 5000 UNIT SUBCUT ×2 (08:24→21:19)
[2019-11-01] MEDS: ONDANSETRON 4 MG/2 ML INJ IV ×2 (14:00→19:20)
[2019-11-01] MEDS: PROCHLORPERAZINE 10 MG/2 ML VIAL IV ×2 (15:33→22:42)
--- NOTE | 2019-11-01 18:25 | PC.NURSE ---
Pt advised that he thinks he pulled on his Deluna catheter while sitting on the toilet. Moderate cindi blood on gown and small amount dried on skin. Small amount in Deluna bag. Balloon intact. Will monitor.
--- NOTE | 2019-11-01 20:25 | PM.PNPO.1 ---
Subjective Subjective Date Patient Seen: 11/01/19 Time Patient Seen: 20:26 Interval history: The patient was seen earlier today and again this evening. He is postop from a resection of his sigmoid for volvulus. He had a primary repair and a drain was placed. He says he is sore but not really having any pain. He was drinking fluids earlier but has been belching and had some nausea so I stopped the does. Exam Vital Signs (past 8 hours): - 11/01/19 13:00 11/01/19 15:33 11/01/19 15:47 Temperature 98.5 F 97.8 F Pulse Rate 54 L 61 61 Respiratory Rate 18 19 Blood Pressure 120/59 L 143/69 H 143/69 H Pulse Oximetry 93 91 11/01/19 19:43 Temperature 99.7 F H Pulse Rate 69 Respiratory Rate 19 Blood Pressure 144/79 H Pulse Oximetry 93 Oxygen Delivery Method Room Air Oxygen Flow Rate 0 Narrative Exam Narrative: Operative no apparent distress. Clear anteriorly low decreased breath sounds in the bases heart regular rate and rhythm no murmur gallop abdomen is distended soft the dressing is intact there is a small amount of drainage Objective Labs Result Diagrams: 10/31/19 06:40 10/31/19 06:40 Assessment & Plan Post-op Postoperative Procedures: Procedures Operation Date: 10/30/19 23:50 Actual Procedures Side Surgeon p Colon Resection Sigmoid,left colon Franco Lopez MD Postoperative day: 1 Postoperative status narrative: Patient doing pretty much as expected. I noted he has some bloody drainage it is penis. It appears the at the also has some blood in his urine. He apparently has traumatize is urinary tract some how. I will keep him NPO for now. Labs in the morning. Continue IV fluids. Postoperative plan narrative: See above. Encourage deep breathing and use of his incentive spirometer.
[2019-11-01] MEDS: LACTATED RINGERS 1,000 ML 150 ML IV (21:19)
[2019-11-01] MEDS: SIMVASTATIN 10 MG TABLET PO (21:19)
[2019-11-02] VITALS (14 sets, daily range): BP systolic 141–157; BP diastolic 75–93; PULSE 69–94; RESP 16–24; TEMP 36.4–37.8; O2SAT 91–97
[2019-11-02] MEDS: LORazepam 2 MG/ML INJ 1 MG IV (00:21)
--- NOTE | 2019-11-02 00:36 | PC.NURSE ---
Pt. C/O nausea, anxiety & insomnia. Spouse called in to accompany pt. Dr. Grande notified orderd 1 mg. of Lorazepam IVP. Prior to administer Lorazepam IV spouse reported had some adverse reactions to Narcotic. Pt. & spouse requested not to give him a full dose of 1 mg. Ativan only 0.5mg. Administered 0.5 mg of IVP Lorazepam & pt. fall asleep right away. SP02 89-90% in RA after the administration of Lorazepam 0.5 mg. Palce 2 liters & cont. pulse oximeter SP02 now 95% in 2 liters 02. Will cont. POC & monitor. 0.5 mg. wasted & witness by Sharyn Miller RN.
[2019-11-02] MEDS: LACTATED RINGERS 1,000 ML 150 ML IV ×3 (04:05→19:30)
[2019-11-02] MEDS: PROCHLORPERAZINE 10 MG/2 ML VIAL IV (06:34)
--- NOTE | 2019-11-02 06:58 | PC.NURSE ---
Dr. Grande notified that pt. requesting to take out his trujillo cath. Pt. pulling his cath. out noted hematuria. Pt. also confused & restless, he ordered to give him 1 mg. of Lorazepam. Notified pt. & spouse but they declined the Ativan, spouse states I think that's make him confused. Spouse @ the bedside, pt. vomitied 150 cc of blackish-brown emesis. 10 mg. of Compazine admin. Will report to day RN.
[2019-11-02 07:05] LABS: Add Manual Diff / Slide Review NO; Basophils Absolute Auto 0 /uL (0-100); Basophils Percent Auto 0.2 % (0-2); Eosinophils Absolute Auto 0 /uL (0-450); Hematocrit 39.1 % (41-53); Hemoglobin 13.2 g/dL (13.5-17.5); Lymphocytes Absolute Auto 400 /uL (1100-4500); Lymphocytes Percent Auto 3.7 % (25-40); Mean Corpuscular HGB Conc 33.8 % (30-36); Mean Corpuscular Hemoglobin 33.5 PG (26-34); Mean Corpuscular Volume 99.1 fL (80-100); Monocytes Absolute Auto 1000 /uL (0-900); Monocytes Percent Auto 8.2 % (3-14); Neutrophils Absolute Auto 10300 /uL (1500-7000); Neutrophils Percent Auto 87.9 % (50-75); Platelet Count 160 X10^3/uL (150-400); Red Blood Cell Count 3.95 X10^6/uL (4.5-5.9); Red Cell Distribution Width 13.9 % (11.6-14.8); White Blood Cell Count 11.7 X10^3/uL (4.5-11.0)
[2019-11-02 07:13] LABS: Alanine Aminotransferase 16 IU/L (<50); Albumin Globulin Ratio 1.3 (1.0-2.8); Alkaline Phosphatase 37 U/L (38-126); Aspartate Aminotransferase 28 IU/L (17-59); Bilirubin Total 0.7 mg/dL (0.2-1.3); Blood Urea Nitrogen 33 mg/dL (9-20); Calcium 9.2 mg/dL (8.4-10.2); Carbon Dioxide 30 mmol/L (22-32); Chloride 99 mmol/L (98-107); Estimated Glomerular Filt Rate > 60.0 mL/min (>60); Glucose 150 mg/dL (80-110); HEMOLYSIS < 15 (0-50); Magnesium 2.2 mg/dL (1.6-2.3); Potassium 4.1 mmol/L (3.4-5.1); Sodium 139 mmol/L (137-145)
[2019-11-02 07:28] LABS: Procalcitonin 0.82 ng/mL (<0.5)
--- NOTE | 2019-11-02 10:19 | DI.RAD.S_ITS ---
PROCEDURE: XR ABDOMEN 1V INDICATIONS: NG placement check TECHNIQUE: One view of the abdomen acquired. COMPARISON: [facility], CT, CT ABDOMEN PELVIS W CON, 10/30/2019, 22:00. [facility], CR, XR ACUTE ABDOMEN SERIES, 10/30/2019, 20:36. FINDINGS: Surgical changes and devices: Interval placement of a nasogastric tube is identified with the tip coiled within the left upper quadrant, probably positioned within the stomach. Bowel: There has been interval development of multiple distended air-filled small bowel loops measuring up to approximately 4.7 cm in diameter. There is at least a single distended loop of colon within the right hemiabdomen. No definite pneumoperitoneum is appreciated. Soft tissues: No suspicious abdominal calcifications. Visualized solid organ contours appear normal in size. Bones: No suspicious bony lesions. IMPRESSION: 1. Nasogastric tube appears to be properly positioned within the stomach. 2. Interval development of multiple distended small bowel loops is probably related to ileus. However, developing small bowel obstruction cannot be excluded. Dictated by: Tramaine Gutiérrez M.D. on 11/02/2019 at 10:02 Approved by: Tramaine Gutiérrez M.D. on 11/02/2019 at 10:07
[2019-11-02] MEDS: MORPHINE 2 MG/ML INJ IV (10:54)
[2019-11-02] MEDS: PANTOPRAZOLE 40 MG VIAL IV (13:40)
[2019-11-02] MEDS: HEPARIN 5,000 UNIT/ML VIAL 5000 UNIT SUBCUT ×2 (13:43→21:28)
--- NOTE | 2019-11-02 17:15 | PC.NURSE ---
Pt stood to void 15 mLs brown urine. aware.
[2019-11-02] MEDS: SODIUM CHLORIDE 0.9% 1,000 ML 1000 ML IV (17:32)
--- NOTE | 2019-11-02 18:18 | P.PN_ITS ---
Subjective Subjective Date Patient Seen: 11/02/19 Time Patient Seen: 18:19 Interval history: Patient was seen earlier today and again this evening. He had a colon resection for volvulus of the sigmoid. Primary anastomosis was performed. Patient was vomiting this morning in an NG tube was placed. Over the course of the days probably put at least 3 L of NG fluid. His dark black in color. He has been started on IV Protonix. He feels much better since the christian cement of the NG tube. Exam Vital Signs (past 8 hours): - 11/02/19 11:35 11/02/19 12:22 11/02/19 15:25 Temperature 98.2 F 98.3 F Pulse Rate 72 83 Respiratory Rate 20 18 Blood Pressure 152/82 H 141/84 H Pulse Oximetry 94 94 97 11/02/19 16:00 Temperature Pulse Rate Respiratory Rate Blood Pressure Pulse Oximetry 96 Oxygen Delivery Method Nasal Cannula Oxygen Flow Rate 1 Narrative Exam Narrative: Lungs are clear to auscultation decreased on the left base compared to the right heart regular rate and rhythm no murmur gallop abdomen is distended protuberant soft midline is intact. No cellulitis. Objective Labs Result Diagrams: 11/02/19 06:45 11/02/19 06:45 Labs: Laboratory Results - last 24 hr 11/02/19 11/02/19 11/02/19 06:45 06:45 06:45 WBC 11.7 H RBC 3.95 L Hgb 13.2 L Hct 39.1 L MCV 99.1 MCH 33.5 MCHC 33.8 RDW 13.9 Plt Count 160 Neut % (Auto) 87.9 H Lymph % (Auto) 3.7 L [place] % (Auto) 8.2 Eos % (Auto) 0.0 L Baso % (Auto) 0.2 Neut # (Auto) 96643 H Lymph # (Auto) 400 L [place] # (Auto) 1000 H Eos # (Auto) 0 Baso # (Auto) 0 Sodium 139 Potassium 4.1 Chloride 99 Carbon Dioxide 30 BUN 33 H Creatinine 1.10 Estimated GFR > 60.0 BUN/Creatinine Ratio 30.0 H Glucose 150 H Calcium 9.2 Magnesium 2.2 Total Bilirubin 0.7 AST 28 ALT 16 Alkaline Phosphatase 37 L Total Protein 7.0 Albumin 4.0 Globulin 3.0 Albumin/Globulin Ratio 1.3 Procalcitonin 0.82 H Assessment & Plan Post-op Postoperative Procedures: Procedures Operation Date: 10/30/19 23:50 Actual Procedures Side Surgeon p Colon Resection Sigmoid,left colon Franco Lopez MD Postoperative status narrative: Patient clearly has an ileus. He had a large amount of fluid in his intestinal tract the NG continues to put out fluid. F oley was removed because it was irritating him. He kept pulling on it and had blood discharge around the Deluna. He has been able to void. Postoperative plan narrative: Continue NG. Continue DVT prophylaxis. Started proton pump inhibitor IV. NPO.
[2019-11-03] VITALS (13 sets, daily range): BP systolic 155–165; BP diastolic 80–100; PULSE 63–77; RESP 16–18; TEMP 36.6–37.7; O2SAT 93–98
[2019-11-03] MEDS: LACTATED RINGERS 1,000 ML 150 ML IV ×3 (03:43→16:52)
[2019-11-03] MEDS: HEPARIN 5,000 UNIT/ML VIAL 5000 UNIT SUBCUT ×2 (10:07→21:51)
[2019-11-03] MEDS: PANTOPRAZOLE 40 MG VIAL IV (10:08)
--- NOTE | 2019-11-03 12:54 | CM.DPC ---
DCP Cont: Met with patient to check in. Introduced self and role. Patient's , Rekha, at bedside. Patient currently has NG tube. Stated, since he has had it, he has felt better. Patient stated, he had severe bloating prior to this, which was very uncomfortable. Patient has supportive , lives in [place]. P: DCP to continue to be available for any resources needed. Patient should be able to go home when his bowel function returns. Rocío Em RN/Painter Barrel
[2019-11-03] MEDS: dilTIAZem CD 240 MG CAP PO (14:32)
--- NOTE | 2019-11-03 18:40 | PM.PNPO.1 ---
Subjective Subjective Date Patient Seen: 11/03/19 Time Patient Seen: 10:40 Interval history: The patient is post resection of his sigmoid colon for volvulus with a primary anastomosis. Feels much better today than yesterday. Her is NG tube has continued to drain. He has begun to pass flatus. Exam Vital Signs (past 8 hours): - 11/03/19 10:42 11/03/19 11:22 11/03/19 15:55 Temperature 99.8 F H Pulse Rate 75 Respiratory Rate 18 Blood Pressure 165/100 H Pulse Oximetry 95 94 93 11/03/19 17:41 Temperature Pulse Rate Respiratory Rate Blood Pressure Pulse Oximetry 96 Oxygen Delivery Method Room Air Oxygen Flow Rate 0 Narrative Exam Narrative: Lungs are clear to auscultation. Better effort. Heart regular rate and rhythm without murmur gallop. Abdomen is distended but less so than yesterday. Dressing is intact and dry no cellulitis 3 some drainage around the drain the drain is draining serous fluid. Objective Labs Result Diagrams: 11/02/19 06:45 11/02/19 06:45 Assessment & Plan Post-op Postoperative Procedures: Procedures Operation Date: 10/30/19 23:50 Actual Procedures Side Surgeon p Colon Resection Sigmoid,left colon Franco Lopez MD Postoperative status narrative: Patient doing well. Bowel function beginning to return. He has been afebrile and clinically doing okay otherwise. Ileus is probably just a function of the operation itself rather than any complication. Such an ileus as fairly typical. Postoperative plan narrative: Check x-rays in the morning hopefully I will be able to get the NG tube out soon and this will mobilize him better as well. Continue DVT prophylaxis.
[2019-11-04] VITALS (10 sets, daily range): BP systolic 147–174; BP diastolic 74–82; PULSE 58–63; RESP 16–18; TEMP 36.8–37.7; O2SAT 94–100
[2019-11-04] MEDS: LACTATED RINGERS 1,000 ML 150 ML IV ×3 (05:44→21:20)
--- NOTE | 2019-11-04 06:00 | DI.RAD.S_ITS ---
PROCEDURE: XR ACUTE ABDOMEN SERIES INDICATIONS: post volvulus op. Assess bowel gas pattern. Low grade temp. TECHNIQUE: One view chest and two views of the abdomen were acquired. COMPARISON: [facility], CT, CT ABDOMEN PELVIS W CON, 10/30/2019, 22:00. [facility], CR, XR ABDOMEN 1V, 11/02/2019, 10:29. [facility], CR, XR ACUTE ABDOMEN SERIES, 10/30/2019, 20:36. FINDINGS: Surgical changes and devices: There is a nasogastric tube in the stomach. There are surgical gina in lower abdomen Chest: Left basilar opacities are likely atelectasis. Heart size is normal. No pleural effusions. No pneumoperitoneum. Abdomen: Distended small bowel loops with multiple air-fluid levels. No suspicious calcifications. Visualized solid organ contours appear normal. Bones: No suspicious bony lesions. IMPRESSION: Distended small bowel loops with multiple air-fluid levels, most likely secondary to postoperative ileus but small bowel obstruction cannot be excluded. Dictated by: Weston Espinal M.D. on 11/04/2019 at 9:14 Approved by: Weston Espinal M.D. on 11/04/2019 at 9:17
--- NOTE | 2019-11-04 06:01 | PC.NURSE ---
I attempted to restart a new IV access, but it infiltrated when was flushed with NS. Tova PULPER was able to placed an IV access the second try. Flushed well with brisk blood return & tubing was also changed.
[2019-11-04 06:16] LABS: Add Manual Diff / Slide Review NO; Basophils Absolute Auto 0 /uL (0-100); Basophils Percent Auto 0.1 % (0-2); Eosinophils Absolute Auto 100 /uL (0-450); Eosinophils Percent Auto 1.6 % (2-4); Hematocrit 36.6 % (41-53); Hemoglobin 12.6 g/dL (13.5-17.5); Lymphocytes Absolute Auto 800 /uL (1100-4500); Lymphocytes Percent Auto 9.7 % (25-40); Mean Corpuscular HGB Conc 34.5 % (30-36); Mean Corpuscular Volume 98.5 fL (80-100); Monocytes Absolute Auto 1000 /uL (0-900); Monocytes Percent Auto 12.1 % (3-14); Neutrophils Absolute Auto 6300 /uL (1500-7000); Neutrophils Percent Auto 76.5 % (50-75); Platelet Count 153 X10^3/uL (150-400); Red Blood Cell Count 3.72 X10^6/uL (4.5-5.9); White Blood Cell Count 8.2 X10^3/uL (4.5-11.0)
[2019-11-04 06:26] LABS: Blood Urea Nitrogen 30 mg/dL (9-20); Calcium 9.1 mg/dL (8.4-10.2); Carbon Dioxide 33 mmol/L (22-32); Chloride 101 mmol/L (98-107); Estimated Glomerular Filt Rate > 60.0 mL/min (>60); Glucose 103 mg/dL (80-110); HEMOLYSIS < 15 (0-50); Magnesium 2.1 mg/dL (1.6-2.3); Sodium 140 mmol/L (137-145)
--- NOTE | 2019-11-04 06:58 | PC.NURSE ---
0610 Went to X-ray & he back to bed now. Tolerated activities well.
[2019-11-04] MEDS: HEPARIN 5,000 UNIT/ML VIAL 5000 UNIT SUBCUT ×2 (08:19→21:43)
[2019-11-04] MEDS: dilTIAZem CD 240 MG CAP PO (08:19)
[2019-11-04] MEDS: PANTOPRAZOLE 40 MG VIAL IV (08:20)
[2019-11-04] MEDS: BISACODYL 10 MG SUPP PR (11:25)
--- NOTE | 2019-11-04 15:35 | PC.NURSE ---
Post-op: Up twice to amb in hallway and sat in the chair twice for almost an hour. Got a supp, several times he thought he would have a bm and finally did on the 3rd try. Stool is loose, brn. BT's active and has been passing sm amts of flatus, still feels a little bloated. Over all he reports he is feeling better today. Pt resting quietly and conversing w/spouse and a friend. Cont w/poc.
[2019-11-05] MEDS: LACTATED RINGERS 1,000 ML 150 ML IV ×3 (00:37→16:22)
[2019-11-05 05:00] VITALS: BP 140/75; PULSE 50; RESP 16; TEMP 37.2; O2SAT 95
--- NOTE | 2019-11-05 05:52 | PC.NURSE ---
Pt rested overnight without complaints. Mildly hypertensive overnight. 176/76. PRN order for SBP >180 sustained for 15mins. No labetolol given. Pt denies headache, dizziness at rest, blurry vision. Pt said, my BP sometimes goes up at this time because my medication wears off. Pt appreciates NG tube removal yesterday, Now I can sleep. Pt denies nausea. Reports pain at abdomen 2/10. Describes as tender. Abd binder in place. Pt stated the provider told him he may be able to stop wearing that today. Gauze dressing intact to abdomen with shadow drainage prsent. MACK drain to left flank/abd. PIV intact to right hand. IVF of LR @ 150cc/hr. Pt reports having 2 BMs yesterday. Bowel tones hypoactive. Reports passing flatus. Pt remains NPO. On tele in sinus rhythm with BBB. Pt is 1 person SBA to BR. Pt stated he was happy with the progress he has made.
[2019-11-05 07:35] VITALS: BP 169/68; PULSE 60; RESP 16; TEMP 37.2; O2SAT 94
[2019-11-05] MEDS: PANTOPRAZOLE 40 MG VIAL IV (08:43)
[2019-11-05] MEDS: dilTIAZem CD 240 MG CAP PO (08:43)
[2019-11-05] MEDS: HEPARIN 5,000 UNIT/ML VIAL 5000 UNIT SUBCUT ×2 (08:43→20:04)
--- NOTE | 2019-11-05 09:32 | PM.PNPO.1 ---
Subjective Subjective Date Patient Seen: 11/05/19 Time Patient Seen: 09:32 Interval history: The patient is a gentleman post resection for volvulus. Feeling much better. Passing lot of gas and had 2 large bowel movements. Exam Vital Signs (past 8 hours): - 11/05/19 05:00 11/05/19 07:35 Temperature 98.9 F 98.9 F Pulse Rate 50 L 60 Respiratory Rate 16 16 Blood Pressure 140/75 169/68 H Pulse Oximetry 95 94 Oxygen Delivery Method Room Air Oxygen Flow Rate 0 Narrative Exam Narrative: Wound looks fine. Abdomen is distended but soft. Drainage is serous. Lungs are clear. Objective Labs Result Diagrams: 11/04/19 06:00 11/04/19 06:00 Assessment & Plan Post-op Postoperative Procedures: Procedures Operation Date: 10/30/19 23:50 Actual Procedures Side Surgeon p Colon Resection Sigmoid,left colon Franco Lopez MD Postoperative status narrative: Doing better now. Intestinal function returning. Postoperative plan narrative: Will start clear liquids and remove his drain. Discharge in near future probable
[2019-11-05 12:01] VITALS: BP 123/63; PULSE 77; RESP 16; TEMP 37.1; O2SAT 95
[2019-11-05 15:32] VITALS: BP 156/78; PULSE 62; RESP 17; TEMP 37.6; O2SAT 93
[2019-11-05] MEDS: ONDANSETRON 4 MG/2 ML INJ IV (19:32)
[2019-11-05] MEDS: MORPHINE 2 MG/ML INJ IV (20:04)
[2019-11-05 20:15] VITALS: BP 160/73; PULSE 68; RESP 15; TEMP 37.4; O2SAT 92
[2019-11-06] VITALS (7 sets, daily range): BP systolic 132–170; BP diastolic 59–80; PULSE 54–62; RESP 16–19; TEMP 36.6–38.1; O2SAT 91–94
[2019-11-06] MEDS: LACTATED RINGERS 1,000 ML 150 ML IV ×2 (00:18→07:10)
[2019-11-06] MEDS: PANTOPRAZOLE 40 MG VIAL IV (08:55)
[2019-11-06] MEDS: dilTIAZem CD 240 MG CAP PO (08:55)
[2019-11-06] MEDS: HEPARIN 5,000 UNIT/ML VIAL 5000 UNIT SUBCUT ×2 (08:55→20:02)
--- NOTE | 2019-11-06 13:06 | PM.PNPO.1 ---
Subjective Subjective Date Patient Seen: 11/06/19 Time Patient Seen: 13:06 Interval history: Patient post sigmoid resection with primary anastomosis. He is feeling well. Having bowel movements and passing flatus. She does not think his abdomen is distended. He says it has always been this big and this is the way it normally is. No nausea or vomiting. Exam Vital Signs (past 8 hours): - 11/06/19 08:30 Temperature 98.9 F Pulse Rate 58 L Respiratory Rate 16 Blood Pressure 145/64 H Pulse Oximetry 93 Oxygen Delivery Method Room Air Oxygen Flow Rate 0 Narrative Exam Narrative: Lungs are clear to auscultation no rales or rhonchi heart regular rate and rhythm no murmur gallop abdomen is protuberant and soft. Midline is intact. There is no cellulitis. No unusual tenderness on exam. Objective Labs Result Diagrams: 11/04/19 06:00 11/04/19 06:00 Assessment & Plan Post-op Postoperative Procedures: Procedures Operation Date: 10/30/19 23:50 Actual Procedures Side Surgeon p Colon Resection Sigmoid,left colon Franco Lopez MD Postoperative status narrative: Doing well. Diet had has been advanced and he is tolerating a general diet. Postoperative plan narrative: Switched him to p.o. meds. Probable discharge in the morning.
[2019-11-06] MEDS: ACETAMINOPHEN 325 MG TABLET 650 MG PO (13:16)
[2019-11-06] MEDS: ONDANSETRON 4 MG/2 ML INJ IV (20:02)
--- NOTE | 2019-11-06 23:39 | PC.NURSE ---
VSS. Denies pain throughout shift.
[2019-11-07] MEDS: ACETAMINOPHEN 325 MG TABLET 650 MG PO (02:19)
[2019-11-07] MEDS: ONDANSETRON 4 MG/2 ML INJ IV (02:23)
--- NOTE | 2019-11-07 02:43 | PC.NURSE ---
NOC shift. pt AO and receptive to care. Midline gina DAVID with scattered dried drainage, former drain site DAVID and approximated. Hypoactive bowel tones, pt reports passing gas and belches. Right hand PIV saline locked. Denying pain at start of shift and reported mild-moderate back pain (chronic issues) and throat irritation around 0215 and I administered 650mg Tylenol (pt declined Oxycodone). pt had difficult time swallowing and stated he felt a little nauseous, 4mg Zofran IV administered and pt reporting an improvement before I left his room. I educated him on bracing a pillow if he needed to cough, sneeze or throw up, pt agreed to give it a try next time. Tele reading NR.
[2019-11-07 04:00] VITALS: BP 164/76; PULSE 68; RESP 20; TEMP 36.9; O2SAT 94
--- NOTE | 2019-11-07 05:18 | DI.RAD.S_ITS ---
PROCEDURE: XR ABDOMEN 1V INDICATIONS: Check NG tube placement TECHNIQUE: One view of the abdomen acquired. COMPARISON: [facility], CR, XR ACUTE ABDOMEN SERIES, 11/04/2019, 5:19. [facility], CR, XR ABDOMEN 1V, 11/02/2019, 10:29. FINDINGS: Surgical changes and devices: There is a nasogastric tube with the tip in the stomach. Bowel: Bowel gas pattern is normal. Soft tissues: No suspicious abdominal calcifications. Visualized solid organ contours appear normal in size. There is left basilar atelectasis. Bones: No suspicious bony lesions. IMPRESSION: Nasogastric tube tip is in the stomach. Dictated by: Weston Espinal M.D. on 11/07/2019 at 6:45 Approved by: Weston Espinal M.D. on 11/07/2019 at 6:48
--- NOTE | 2019-11-07 05:51 | PC.NURSE ---
NG Tube Spoke with Dr. Grande regarding pt status (pt warm, c/o pain, bloating, and threw up black contents). Telephone order to place NG tube at 100mmHg. NG tube inserted into right nare at 0515, Xray confirmed placement at 0530. pt reporting improvement with pain and bloating. NG tube secure to nose and to gown. Suction confirmed and emptied 1400 from canister.
[2019-11-07 07:46] VITALS: BP 110/61; PULSE 60; RESP 20; TEMP 36.4; O2SAT 94
[2019-11-07] MEDS: HEPARIN 5,000 UNIT/ML VIAL 5000 UNIT SUBCUT ×2 (08:37→20:13)
--- NOTE | 2019-11-07 09:23 | CM.DPC ---
Addendum entered by Ling Snider LPN 11/07/19 10:11: (note stopped for Team Round..resumed) soon to help him and his during the recovery period. He has an adjustable bed and feels his home is very well set up for recovery. P: remains home when stable for same..pending medical stability/return of GI function. Original Note: DCP: continued: case received, EMR reviewed. ELLA Tse states that NGT had to be replaced last night. Met then with pt, introduced self and role. NGT is noted in place, brown fluid in tubing and cannister. Asked about mobility as see no PT is involved. Pt confirms that he is functionally independent at baseline without assistive device. He says he has been getting up a lot during hospital stay and ambulating around the unit. He and his have decided to obtain a walker as he thinks this will be helpful at d/c as he heals from the surgery. Discussed his post d/c plan. He says his RN daughter will be arriving
--- NOTE | 2019-11-07 11:54 | PC.NURSE ---
Day shift: NG container replaced at 1145. It had 800ml of dark green/brown bile colored output. Pt tolerating NG tube. Denies any pain or nausea. Spouse at bedside for support. Dr Grande paged regarding possible need for IV fluids. Pt NPo at this time.
[2019-11-07] MEDS: LACTATED RINGERS 1,000 ML 150 ML IV ×2 (12:40→18:09)
--- NOTE | 2019-11-07 13:07 | PM.PNPO.1 ---
Subjective Subjective Date Patient Seen: 11/07/19 Time Patient Seen: 13:07 Interval history: Patient began vomiting again last night. He has had a large amount of bilious NG material. No abdominal pain. Still passing flatus though not as much as before. Exam Vital Signs (past 8 hours): - 11/07/19 07:46 Temperature 97.5 F L Pulse Rate 60 Respiratory Rate 20 Blood Pressure 110/61 Pulse Oximetry 94 Oxygen Delivery Method Room Air Oxygen Flow Rate 0 Narrative Exam Narrative: Legs are clear. Good respiratory effort. Heart regular rate and rhythm. Abdomen is distended but much softer than yesterday. No tenderness. Objective Labs Result Diagrams: 11/04/19 06:00 11/04/19 06:00 Assessment & Plan Post-op Postoperative Procedures: Procedures Operation Date: 10/30/19 23:50 Actual Procedures Side Surgeon p Colon Resection Sigmoid,left colon Franco Lopez MD Postoperative status narrative: Patient appears to have persistent ileus. Made NPO with an NG tube. Postoperative plan narrative: Switchhis meds to IV. Probable small-bowel follow-through tomorrow I would like to give his NG a chance to evacuate as much as possible before further distending as intestine with contrast.
[2019-11-07 13:15] VITALS: BP 139/73; PULSE 64; RESP 18; TEMP 36.6; O2SAT 93
[2019-11-07 16:08] VITALS: BP 155/82; PULSE 69; RESP 17; TEMP 36.8; O2SAT 93
[2019-11-07] MEDS: MORPHINE 4 MG/ML INJ IV (16:41)
--- NOTE | 2019-11-07 16:46 | PC.NURSE ---
Addendum entered by Katie Negro R.N. 11/07/19 21:06: Tele both readings showed NSR/BBB per ICU staff Addendum entered by Katie Negro R.N. 11/07/19 21:03: Pt resting quietly throughout evening. NG patent 450cc content. IVF continue as per orders. Call light w/in reach, bed alarm on for pt safety. Continue as per plan of care. Original Note: Pt resting quietly at this time. Med w/MS as per orders for discomfort . Lungs clear, SpO2 95% NG intact/patent Abd w/midline incision w/gina intact. Call light w/in reach, bed alarm on for pt safety.
[2019-11-07 20:41] VITALS: BP 152/76; PULSE 70; RESP 18; TEMP 36.9; O2SAT 94
[2019-11-08] VITALS (7 sets, daily range): BP systolic 153–185; BP diastolic 76–89; PULSE 64–74; RESP 16–18; TEMP 36.4–37.7; O2SAT 93–94
[2019-11-08] MEDS: LACTATED RINGERS 1,000 ML 150 ML IV ×4 (00:56→20:52)
[2019-11-08] MEDS: PANTOPRAZOLE 40 MG VIAL IV (07:44)
[2019-11-08] MEDS: HEPARIN 5,000 UNIT/ML VIAL 5000 UNIT SUBCUT ×2 (07:44→20:51)
--- NOTE | 2019-11-08 08:18 | DI.RAD.S_ITS ---
PROCEDURE: FL SMALL BOWEL FOLLOW THROUGH INDICATIONS: post op ileus vs sbo dx/therapeutic COMPARISON: [facility], CR, XR ACUTE ABDOMEN SERIES, 11/04/2019, 5:19. [facility], CR, XR ABDOMEN 1V, 11/07/2019, 5:24. FINDINGS: KUB: Preprocedural gasfitter film demonstrates a normal bowel gas pattern. No suspicious abdominal calcifications. Visualized solid organ contours appear normal. No suspicious bony abnormalities. Small bowel: There is normal transit time of barium through the small bowel. No definite specific transition point seen There are diffuse mildly prominent small bowel loops with gaseous distention. Mucosal folds are smooth and of normal thickness. No strictures, intraluminal masses, or extrinsic mass effects are noted. The terminal ileum is identified, and is normal in morphology. Midline skin gina noted. IMPRESSION: No specific transition point identified. Normal transit time. Mild diffuse prominent small bowel loops with gaseous distention. No specific evidence of bowel obstruction seen at this time although if the patient's symptoms do not improve, continued surveillance with abdominal series radiographs could be performed. Overall, appearance is improved since 11/04/19, grossly unchanged since yesterday. Dictated by: Salo Awad M.D. on 11/08/2019 at 13:30 Approved by: Salo Awad M.D. on 11/08/2019 at 13:32
--- NOTE | 2019-11-08 08:37 | PC.NURSE ---
Day shift: Pt having swallow study done at this time. Pt is disconnected from NG suction at this time (0830). Will monitor Pt for nausea/vomiting. Requested that swallow study tech inform this fiction and nonfiction writer prose when test is complete so NG suction can be started again. Also applied 2x2 gauze w/ tape to the distal end of midline incision as it has been having scant amount of serosang discharge. Call light in reach. Door to room open. Frequent rounding by this fiction and nonfiction writer prose.
--- NOTE | 2019-11-08 09:05 | PC.NURSE ---
Day shift: Pt not tolerating solution for swallow study. Has had approx 120ml of the solution and Pt feels like he may have emesis. Dr Grande made aware of this and he said to go ahead and start the imaging and try again in approx 30 minutes with more of the solution. This info relayed to environmental technical officer. Will continue monitor.
--- NOTE | 2019-11-08 14:58 | CM.DPC ---
Addendum entered by Rocío Em R.N. 11/08/19 15:10: Tammi, clinical liason from [facility] called back. She is the clinical liason for our hospital. Her direct phone number is: [phone]. Her fax number is: [phone]. She stated that they do accept patients with NG tubes, and mentioned, they are like a hospital, but are licensed differently, and can keep patients longer. Stated that she can review patient's information. Asked her to not call patient or family, for this is early in discussion, and am reaching out for facilities. Stated that she will need H&P, prog notes, and med sheet. Will fax over information for her to review. Original Note: DCP Cont: Went ahead and reached out to a couple of facilities to inquire if they take NG tubes, regarding bowel obstruction. [facility] does not take NG tubes for small bowel obstructions, only for feeding purposes. Called [facility], spoke to Artie Altamirano. His phone number is: [phone]. Mentioned the NG tube, and stated that they do have patients that have been admitted with NG tubes, but he stated that he would have his clinical liason, Jo, call back and give more information on admissions, and what they can accept. P: DCP to continue to follow closely. Will also reach out to surgery regarding plan and goals of care for patient. Rocío Em RN/Rose Grader
--- NOTE | 2019-11-08 15:46 | PC.NURSE ---
Addendum entered by Katie Negro R.N. 11/08/19 22:52: order to D/C NG at 1930, may have ice chips Relatively uneventful evening IVF continue as per orders. Call light w/in reach, bed alarm on for pt safety. Continue w/plan of care. Original Note: Pt assisted to BR for smal loose dark BM Lungs clear, SpO2 95% RA NG to LIS w/o incidnce. Abd gina intact. Satisfactory post op course. Call light w/in reach, pt w/family and calls appropriately for need.
[2019-11-09] VITALS (12 sets, daily range): BP systolic 150–196; BP diastolic 76–113; PULSE 55–69; RESP 16–20; TEMP 36.4–37.1; O2SAT 93–96
[2019-11-09] MEDS: LACTATED RINGERS 1,000 ML 150 ML IV ×2 (04:24→10:35)
[2019-11-09] MEDS: PANTOPRAZOLE 40 MG VIAL IV (08:36)
[2019-11-09] MEDS: HEPARIN 5,000 UNIT/ML VIAL 5000 UNIT SUBCUT ×2 (08:36→20:33)
--- NOTE | 2019-11-09 09:59 | PC.NURSE ---
Day shift: Pt ambulated in halls approx 200ft w/ RN marsha Sanders. Pt tolerated well. SpO2 >91% RA. Uses FWW. Ambulating well SBA with gait belt.
--- NOTE | 2019-11-09 12:21 | CM.DPC ---
DCP Cont: It is noted that patient's NG tube was removed yesterday, and is tolerating liquids. Kristina did call back and stated that for patient to be admitted to their facility, they have to be in ICU for three consecutive days for Medicare to cover their facility, and patient has not. If patient is able to tolerate advancement of diet, should be able to go home. He has been ambulating in christopher ways. P: DCP to continue to follow. Patient should be able to go home when he is medically stable. Rocío Em RN/Theatrical Agent
[2019-11-09] MEDS: LABETALOL 20 MG/4 ML SYRINGE 10 MG IV (13:47)
[2019-11-09] MEDS: lisinopriL 20 MG TABLET PO (14:49)
--- NOTE | 2019-11-09 17:20 | PC.NURSE ---
Addendum entered by Katie Negro R.N. 11/09/19 20:38: Calf SCD in place. Addendum entered by Katie Negro R.N. 11/09/19 20:34: Pt had uneventful evening. Denies any discomfort at this time. Tele shows SR per ICU staff. Call light w/in reach, be alarm on for pt safety. Original Note: Pt awake, visiting w/family. Denies discomfort at this time. Tele shows SB/BBB per ICU staff. Midline staple incision intact. HL right hand intact/patent. Satisfactory post op course. Call light w/in reach, bed alarm on for pt safety.
--- NOTE | 2019-11-09 17:24 | PM.PNPO.1 ---
Subjective Subjective Date Patient Seen: 11/08/19 Time Patient Seen: 20:00 Interval history: Patient was vomiting yesterday in an NG tube was placed. He was decompressed through the night and underwent a small-bowel follow-through today. The contrast essentially went straight through it normal transit time. No obvious area of obstruction. The patient is having no abdominal pain. He has had multiple bowel movements. He says his abdomen looks and feels much softer. Exam Vital Signs (past 8 hours): - 11/09/19 12:00 11/09/19 13:45 11/09/19 13:47 Temperature 97.7 F Pulse Rate 55 L 64 60 Respiratory Rate 20 Blood Pressure 176/76 H 196/113 H 184/85 H Pulse Oximetry 95 11/09/19 13:50 11/09/19 14:17 11/09/19 14:49 Temperature Pulse Rate 60 59 L 59 L Respiratory Rate Blood Pressure 184/85 H 169/81 H 169/81 H Pulse Oximetry 95 11/09/19 15:45 Temperature 97.9 F Pulse Rate 59 L Respiratory Rate 16 Blood Pressure 163/77 H Pulse Oximetry 96 Oxygen Delivery Method Room Air Oxygen Flow Rate 0 Narrative Exam Narrative: Vital signs are inaccurate for the . He has been afebrile however. Pulse is been normal. His lungs are clear to auscultation. No rales or rhonchi. Abdomen is much softer that it has been. Midline is intact. No cellulitis. Objective Labs Result Diagrams: 11/04/19 06:00 11/04/19 06:00 Assessment & Plan Post-op Postoperative Procedures: Procedures Operation Date: 10/30/19 23:50 Actual Procedures Side Surgeon p Colon Resection Sigmoid,left colon Franco Lopez MD Postoperative status narrative: Patient doing better. Ileus appears to have resolved. Postoperative plan narrative: NG has been removed. Cautious clear liquids. Continue IV fluids still him sure that he will tolerate p.o..
--- NOTE | 2019-11-09 18:48 | PM.PNPO.1 ---
Subjective Subjective Date Patient Seen: 11/09/19 Time Patient Seen: 18:48 Interval history: The patient was seen earlier today and again this evening. He feels good. He just finished a full liquid dinner. No nausea. Continuing to pass gas and move his bowels. Exam Vital Signs (past 8 hours): - 11/09/19 12:00 11/09/19 13:45 11/09/19 13:47 Temperature 97.7 F Pulse Rate 55 L 64 60 Respiratory Rate 20 Blood Pressure 176/76 H 196/113 H 184/85 H Pulse Oximetry 95 11/09/19 13:50 11/09/19 14:17 11/09/19 14:49 Temperature Pulse Rate 60 59 L 59 L Respiratory Rate Blood Pressure 184/85 H 169/81 H 169/81 H Pulse Oximetry 95 11/09/19 15:45 Temperature 97.9 F Pulse Rate 59 L Respiratory Rate 16 Blood Pressure 163/77 H Pulse Oximetry 96 Oxygen Delivery Method Room Air Oxygen Flow Rate 0 Narrative Exam Narrative: Lungs are clear. Heart regular rate and rhythm without murmur gallop. Abdomen is protuberant but soft. His incision is intact. He has reaction to the gina which is expected. There is no cellulitis. Objective Labs Result Diagrams: 11/04/19 06:00 11/04/19 06:00 Assessment & Plan Post-op Postoperative Procedures: Procedures Operation Date: 10/30/19 23:50 Actual Procedures Side Surgeon p Colon Resection Sigmoid,left colon Franco Lopez MD Postoperative status narrative: Doing better. It may be possible for him to go home tomorrow or the following day depending on whether his intestines keep working. Postoperative plan narrative: Plan to get some labs for the morning.
[2019-11-09] MEDS: SIMVASTATIN 10 MG TABLET PO (20:37)
[2019-11-10] VITALS: BP 197/94; PULSE 64; RESP 18; TEMP 36.8; O2SAT 95
[2019-11-10 00:40] VITALS: BP 153/89; PULSE 58
[2019-11-10 03:21] VITALS: BP 151/76; PULSE 70; RESP 18; TEMP 36.9; O2SAT 94
--- NOTE | 2019-11-10 06:40 | PC.NURSE ---
Patient had uneventful night. Passing flatus, bowel movements, and urine without difficulty. Patient states he feels optimistic about being able to go home.
[2019-11-10 08:00] VITALS: BP 148/76; PULSE 63; RESP 16; TEMP 37.1; O2SAT 95
[2019-11-10 08:54] VITALS: BP 143/81
[2019-11-10] MEDS: lisinopriL 20 MG TABLET PO (08:54)
[2019-11-10] MEDS: HEPARIN 5,000 UNIT/ML VIAL 5000 UNIT SUBCUT (08:55)
[2019-11-10] MEDS: dilTIAZem CD 240 MG CAP PO (08:55)
[2019-11-10] MEDS: PANTOPRAZOLE 40 MG VIAL IV (08:55)
--- NOTE | 2019-11-10 11:15 | PC.NURSE ---
Assess- Patient is going to be discharging after lunch today.... He has been put on a general diet and we will see how he does with food. He has been up to the bathroom x4 in the last 4 hours. He has had 3 small bowel movements and is voiding well. Incision to ML is cdi with gina well approximated. Slight redness around staple edges from incision healing. Denies any nausea and visiting with his family at this time.
--- NOTE | 2019-11-10 12:45 | P.DS_ITS ---
History of Present Illness History of Present Illness Date Patient Seen: 11/10/19 Time Patient Seen: 12:49 Chief complaint: bloated/painful stomach and mid chest/no BM Narrative: 84-year-old white male with acute onset of significant abdominal pain today although he has had progressive distention for some months. He has had increasing difficulty with bowel movements and has been taking frequent laxatives. Last colonoscopy approximately 12 years ago. In the emergency department a CT scan was done which shows a sigmoid volvulus. His cecum is 11 cm in diameter Discharge Providers Provider Date of admission: 10/30/19 23:07 Discharge Date: 11/10/19 Primary care physician: Ayush Skinner MD Consults: 10/31/19 01:37 Consult to Discharge Planning Routine Comment: 11/01/19 08:18 Consult to Respiratory Therapy Evaluate & Treat Comment: Physician Instructions: Evaluate and treat 11/01/19 20:31 Consult to Discharge Planning Routine Comment: Discharge provider: Mikhail Thompson MD Summary Hospital Course Discharge Diagnosis: Sigmoid colectomy ileus Hospital Course: Ulises Garcia is an 84-year-old man who presented to the hospital 10/31 with an acute 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 He was taken the operating room underwent exploratory laparotomy and sigmoid colectomy. His postoperative course was remarkable for a prolonged postoperative ileus. He ultimately had return of bowel function is nasogastric tube was removed and his diet was gradually advanced. On the did discharge he is tolerant of regular diet he is having bowel movements his pain is well controlled with Tylenol only. He is afebrile incision is clean dry intact in stable for discharge home at this time. Status at Discharge Cognitive/behavioral status at discharge: oriented Functional status at discharge: uses cane/walker Time Spent with Patient Time spent: Greater than 30 minutes Exam Vital Signs (past 8 hours): - 11/10/19 08:00 11/10/19 08:54 Temperature 98.8 F Pulse Rate 63 Respiratory Rate 16 Blood Pressure 148/76 H 143/81 H Pulse Oximetry 95 Oxygen Delivery Method Room Air Oxygen Flow Rate 0 Narrative Exam Narrative: General adult male alert oriented no acute distress Chest nonlabored respiration Abdomen soft incision clean dry intact with gina. Extremities warm well perfused Objective Labs Result Diagrams: 11/04/19 06:00 11/04/19 06:00 Discharge Plan Discharge Plan Patient Disposition: Home Discharge comment: You had part of her sigmoid colon removed. You should avoid large amounts of vegetables at a 1 meal. Eat a variety of foods. Discharge orders & Medications Prescriptions: Continued simvastatin 20 MG tablet 10 mg PO HS Qty: 0 RF: 0 lisinopril-hydrochlorothiazide 20-12.5 mg Tablet 1 tab PO DAILY RF: 0 diltiazem HCl 240 mg Capsule,Extended Release 24 Hr 240 mg PO QAM RF: 0 aspirin 81 mg Tablet,Delayed Release (Dr/Ec) 81 mg PO DAILY RF: 0 Discontinued [MILK THISTLE] 140 mg PO DAILY Qty: 0 RF: 0 Follow up/Referrals: Ayush Skinner MD [Primary Care Provider] - Heriberto Grande MD [Physician] - 1 Week (Please call my office and make an appointment to see me sometime around Friday or Friday. If you need to reach a doctor please call our office. If it is after hours listen to the entire message in at the end you will be connected to the page cap and stud machine operator who will page the doctor on-call. Try to avoid use of the emergency room unless instructed to do so or you have a true emergency as your postoperative care is included in your operative care) Discharge Health Status Multidrug resistant organism: No MDRO Diet/Activity/Treatments Diet: Diet as Tolerated Activity: Do not lift over 10 lb or strain for the next 5 weeks. You may walk. No other exercise. Avoid driving into her pain-free off medication. Skin/Wound/Dressing Care Report to your healthcare provider any signs of infection, such as:: chills, fever, increased pain, unusual drainage and unusual redness Dressing: You may shower. No pool or tub until your doctor tells you to do so. Other wound treatment: Use Tylenol if you needed for pain. You can also use Motrin or Advil or Naprosyn. Visit Report/Discharge Packet Instructions: Ileus Discharge Data Primary Care Provider: Ayush Skinner V
--- NOTE | 2019-11-10 14:45 | CM.DPC ---
DCP Discharge Home Per Surgeon, pt medically stable to d/c home today now that he tolerated advanced diet and had lunch today. SW received a call from pt in his room and pt states he is ready to d/c home and is hopeful to get discharge paperwork ready as soon as possible. Pt has family bedside and SW and RN talked with Dtr (who is a nurse) and confirms that they can transport pt home after lunch and they do not have concerns with d/c plan of home. Plan: Patient to d/c home via Dtr POV today and no SW needs at this time. AMBER Snow
== END 2019-11-10 14:30 | disposition home or self-care (01) | DRG 330 ==
LOC: ED 22:58 → AC 23:08 → ICU 10-31 02:54 → AC 10-31 14:25
PROVIDERS: Specialist; Admitting Provider Surgery; Emergency Provider Emergency Medicine; PCP Internal Medicine; Referring Provider Emergency Medicine; Visit Provider Surgery
PROC: (CPT 44140; principal; 2019-10-30 23:50)
DX: K56.2 Volvulus (principal); T83.83XA Hemorrhage due to genitourinary prosthetic devices, implants and grafts, initial encounter; K56.7 Ileus, unspecified; I10 Essential (primary) hypertension; E78.5 Hyperlipidemia, unspecified; R31.0 Gross hematuria; Y73.8 Miscellaneous gastroenterology and urology devices associated with adverse incidents, not elsewhere classified; Y92.230 Patient room in hospital as the place of occurrence of the external cause
CPT/HCPCS: 36415; 74018; 74022; 74177; 74248; 80048; 80053; 83605; 83690; 83735; 84145; 85025; 85610; 85730; 86850; 86900; 86901; 87797; 93005; 94760; 94762; 96374; 99284; 99285; C9113; J0330; J0780; J1100; J1170; J1644; J1885; J2060; J2270; J2405; J2704; J3010; Q9967

== ENCOUNTER → 2020-09-29 18:56 | Outpatient (ROUT) | payer MEDICARE, OTHER, SELFPAY ==
[2019-10-31 05:05] VITALS: BMI 29.0
[2020-09-29 19:10] LABS: Hemoglobin A1C% w Est Avg Glu 6.2 % (4.0-6.0)
[2020-09-29 19:20] LABS: HEMOLYSIS < 15 (0-50); Potassium 4.5 mmol/L (3.4-5.1)
[2020-09-29 19:21] LABS: Aspartate Aminotransferase 25 IU/L (17-59); BUN Creatinine Ratio 31.5 (6-22); Blood Urea Nitrogen 45 mg/dL (9-20); Calcium 9.5 mg/dL (8.4-10.2); Carbon Dioxide 22 mmol/L (22-32); Chloride 106 mmol/L (98-107); Cholesterol 171 mg/dL (140-199); Glucose 112 mg/dL (80-110); HDL Cholesterol 102 mg/dL (40-60); LDL Cholesterol Calculated 53 mg/dL (<100); Sodium 135 mmol/L (137-145); Triglycerides 78 mg/dL (35-150)
== END ==
PROVIDERS: PCP Internal Medicine; Visit Provider Internal Medicine
DX: I10 Essential (primary) hypertension (principal); E78.2 Mixed hyperlipidemia; R73.01 Impaired fasting glucose
CPT/HCPCS: 80048; 80061; 83036; 84450

== ENCOUNTER → 2021-02-23 18:41 | Outpatient (ROUT) | payer MEDICARE, OTHER, SELFPAY ==
[2019-10-31 05:05] VITALS: BMI 29.0
[2021-02-23 19:12] LABS: Add Manual Diff / Slide Review NO; Basophils Absolute Auto 0 /uL (0-100); Basophils Percent Auto 0.4 % (0-2); Eosinophils Absolute Auto 100 /uL (0-450); Eosinophils Percent Auto 0.9 % (2-4); Hematocrit 44.3 % (41-53); Hemoglobin 14.9 g/dL (13.5-17.5); Lymphocytes Absolute Auto 1200 /uL (1100-4500); Lymphocytes Percent Auto 18.4 % (25-40); Mean Corpuscular HGB Conc 33.7 % (30-36); Mean Corpuscular Hemoglobin 33.5 PG (26-34); Mean Corpuscular Volume 99.3 fL (80-100); Monocytes Absolute Auto 600 /uL (0-900); Monocytes Percent Auto 9.5 % (3-14); Neutrophils Absolute Auto 4500 /uL (1500-7000); Neutrophils Percent Auto 70.8 % (50-75); Platelet Count 161 X10^3/uL (150-400); Red Blood Cell Count 4.46 X10^6/uL (4.5-5.9); Red Cell Distribution Width 13.9 % (11.6-14.8); White Blood Cell Count 6.4 X10^3/uL (4.5-11.0)
[2021-02-23 19:20] LABS: Alanine Aminotransferase 19 IU/L (<50); Albumin 4.2 g/dL (3.5-5.0); Albumin Globulin Ratio 1.6 (1.0-2.8); Alkaline Phosphatase 60 U/L (38-126); Aspartate Aminotransferase 26 IU/L (17-59); BUN Creatinine Ratio 20.8 (6-22); Bilirubin Total 0.9 mg/dL (0.2-1.3); Blood Urea Nitrogen 30 mg/dL (9-20); Calcium 9.6 mg/dL (8.4-10.2); Carbon Dioxide 23 mmol/L (22-32); Chloride 107 mmol/L (98-107); Estimated Glomerular Filt Rate 46.6 mL/min (>60); Globulin 2.7 g/dL (1.7-4.1); Glucose 114 mg/dL (80-110); HEMOLYSIS < 15 (0-50); Potassium 4.2 mmol/L (3.4-5.1); Sodium 140 mmol/L (137-145); Total Protein 6.9 g/dL (6.3-8.2)
[2021-02-23 19:45] LABS: TSH w/ Reflex to FT4 1.47 uIU/mL (0.47-4.68)
== END ==
PROVIDERS: PCP Internal Medicine; Visit Provider Internal Medicine
DX: I48.0 Paroxysmal atrial fibrillation (principal)
CPT/HCPCS: 80053; 84443; 85025

== ENCOUNTER → 2021-03-14 07:56 | Outpatient (CLI) | payer MEDICARE, OTHER, SELFPAY ==
[2019-10-31 05:05] VITALS: BMI 29.0
--- NOTE | 2021-03-14 | DI.ECHO.S_ITS ---
Given +---------+ Hospital +---------+ : : [address] : [place] : : : : [id number] : : : : Phone: [phone]+ Echocardiogram Report + + :Name: SILVIA CARRILLO Study Date: 03/14/2021 Height: 73 in : :[facility] ReadingLocation: Weight: 218 lb : : Gender: Male BSA: 2.2 m2 : :: 1935 Age: 85 yrs BP: 146/111 mmHg: :Reason For Study: PAROXYSMAL ATRIAL FIBRILLATION : :Ordering Physician: CORBY, : :UCHE Performed By: Lexii Lan : :Referring: UCHE TAVAREZ : + + Interpretation Summary 1) Normal left ventricular size with moderately to severely reduced systolic function (EF 30-35%). 2) Normal right ventricular size with mildly reduced function. 3) There is moderate mitral regurgitation. 4) The right ventricular systolic pressure is estimated to be at least 36 mmHg based on an estimated right atrial pressure of 3 mm Hg. 5) Significant hypertension present during the study (BP 146/111mmHg). 6) Compared to the Echo done 05/10/2015, LVEF has decreased from normal to moderate-severely reduced on this study. Procedure: A two-dimensional transthoracic echocardiogram with color flow and Doppler was performed. The study quality was technically adequate. Comparison is made with the echocardiogram of 05/10/2015. The patient was in atrial fibrillation with heart rates between 96-134 bpm during the exam. Left Ventricle: The left ventricle is normal in size and wall thickness. The ejection fraction is estimated to be 30-35%. There is moderate to severe global hypokinesis of the left ventricle. Diastolic function could not be accurately assessed due to atrial fibrillation. Right Ventricle: The right ventricle is normal size. Right ventricular systolic function is mildly reduced. Atria: The left atrium is moderately dilated. Right atrial size is normal. There is no Doppler evidence for an interatrial shunt. Mitral Valve: The mitral valve is normal in structure and function. There is moderate mitral regurgitation. There are multiple regurgitant jets present. Aortic Valve: The aortic valve is trileaflet. The aortic valve opens well. There is no aortic valve stenosis. No aortic regurgitation is present. Tricuspid Valve: The tricuspid valve is normal in structure and function. There is mild tricuspid regurgitation. The right ventricular systolic pressure is estimated to be at least 36 mmHg based on an estimated right atrial pressure of 3 mm Hg. Pulmonic Valve: The pulmonic valve leaflets are thin and pliable; valve motion is normal. There is no pulmonic valvular regurgitation. Great Vessels: The aortic root is normal size. The ascending aorta is mildly enlarged. The IVC is of normal diameter and collapses greater than 50% with a sniff. This suggests a low right atrial pressure of 3 mm Hg. Pericardium/ Pleura There is no pericardial effusion. There is no pleural effusion. MMode/2D Measurements & Calculations LVIDd: 4.6 cm LVOT diam: 2.0 cm LVIDs: 3.7 cm Ao root diam: 3.1 cm FS: 20.3 % asc Aorta Diam: 3.5 cm IVSd: 1.1 cm Ao Arch Diam (Prox Trans): 3.0 cm LVPWd: 0.97 cm LV loaiza. diameter/BSA (cm/m^2): 2.1 LV sys. diameter/BSA (cm/m^2): 1.7 LA A2 area: 25.0 cm2 RA long axis: 5.8 cm LA A4 area: 28.6 cm2 RA area: 19.6 cm2 LA length (vol): 6.8 cm RA vol: 56.4 ml LA vol: 88.4 ml RA : 25.3 ml/m2 LA vol index: 39.6 ml/m2 IVC diam: 2.0 cm RVD1 (basal): 3.8 cm TAPSE: 1.4 cm Doppler Measurements & Calculations Ao V2 max: 112.3 cm/sec LVOT Max Rodney: 77.0 cm/sec Ao V2 mean: 78.5 cm/sec LV V1 max P.4 mmHg Ao max P.1 mmHg LV V1 VTI: 13.5 cm Ao mean P.8 mmHg DILAN(I,D): 2.2 cm2 Ao V2 VTI: 19.2 cm DILAN(V,D): 2.1 cm2 sev ratio: 0.70 DILAN indexed to BSA (cm^2/m^2): 0.97 MV E max rodney: 118.5 cm/sec TR max rodney: 289.5 cm/sec MV A max rodney: 2.8 cm/sec TR max P.5 mmHg MV E/A: 42.1 PA V2 max: 78.1 cm/sec Med Peak E' Rodney: 8.8 cm/sec PA V2 mean: 56.0 cm/sec E/E' med: 13.4 PA mean P.4 mmHg Lat Peak E' Rodney: 8.9 cm/sec PA pr(Accel): 34.5 mmHg E/E' lat: 13.3 E/e' average: 13.4 MV dec time: 0.15 sec SV(LVOT): 41.7 ml Reading Physician:05:41 PM
== END ==
PROVIDERS: PCP Internal Medicine; Referring Provider Internal Medicine; Visit Provider Internal Medicine
DX: I08.1 Rheumatic disorders of both mitral and tricuspid valves (principal); I77.89 Other specified disorders of arteries and arterioles; I48.0 Paroxysmal atrial fibrillation
CPT/HCPCS: 93306

== ENCOUNTER 2021-03-18 14:37 | Inpatient (IN) | payer MEDICARE, OTHER, SELFPAY ==
[2019-10-31 05:05] VITALS: BMI 29.0
[2021-03-18] VITALS (25 sets, daily range): BP systolic 127–168; BP diastolic 77–116; PULSE 92–121; RESP 10–23; TEMP 36.2–36.4; O2SAT 95–100; BMI 29.2; BMI 29.5
--- NOTE | 2021-03-18 14:39 | DI.RAD.S_ITS ---
PROCEDURE: XR CHEST 1V INDICATIONS: chest pain TECHNIQUE: One view of the chest was acquired. COMPARISON: [facility], CHEST 1 VIEW, 01/11/2011, 16:10. [facility], CHEST 1 VIEW, 12/21/2016, 15:34. FINDINGS: Surgical changes and devices: None. Lungs and pleura: Lungs are clear. No pleural effusions or pneumothorax. Mediastinum: The cardiac contours are within normal limits. The aorta demonstrates calcification and tortuosity. Bones and chest wall: No suspicious bony lesions. Age-appropriate bony degenerative changes are seen. Overlying soft tissues appear unremarkable. IMPRESSION: No acute abnormality is seen for age. Dictated by: Yaya Steinberg M.D. on 03/18/2021 at 13:55 Approved by: Yaya Steinberg M.D. on 03/18/2021 at 13:56
--- NOTE | 2021-03-18 14:50 | ED.SYNCOPE ---
HPI - Syncope General Chief Complaint: Dizziness Stated Complaint: Syncope Time Seen by Provider: 03/18/21 14:46 History of Present Illness HPI narrative: Patient is an 85-year-old male with history of atrial fibrillation his previous GI bleed not on anticoagulation presenting with a syncopal episode. He said that came on suddenly had a brief episode where he passed out said it was only his for a few seconds. He felt like his AFib was acting up. He is on diltiazem and atenolol for it. No head injury. He has no complaints now. He denies any dizziness lightheadedness nausea vomiting or chest discomfort. He recently had an echocardiogram last week which does show an EF of 30-35%. He was unaware of the most recent findings. He was seen and evaluated by Cardiology last week. He was started on atenolol he has taken 2 doses 1 yesterday and 1 this morning. Related Data Home Medications Medication Instructions Recorded Confirmed simvastatin 20 mg tablet 10 mg PO HS #0 12/21/16 11/17/19 aspirin 81 mg tablet,delayed 81 mg PO DAILY 10/30/19 11/17/19 release diltiazem HCl 240 mg capsule,24 240 mg PO QAM 10/30/19 11/17/19 hr,extended release Allergies Allergy/AdvReac Type Severity Reaction Status Date / Time No Known Drug Allergies Allergy Verified 10/30/19 18:54 Review of Systems Review of Systems ROS Unobtainable: All systems reviewed & are unremarkable except as noted in HPI and below Constitutional Constitutional: Denies body ache(s), Denies chills, Denies fatigue and Denies headache(s) Eyes Eyes: Denies blurry vision and Denies change in vision ENT Ears, Nose, Mouth, and Throat: Denies vertigo, Denies dizziness, Denies headache(s), Denies neck pain and Denies sinus pain Cardiovascular Cardiovascular: Reports as per HPI, Reports rapid heart rate, Reports irregular heart rhythm and Reports lightheadedness Respiratory Respiratory: Denies chest congestion and Denies cough Gastrointestinal Gastrointestinal: Denies abdominal pain, Denies nausea and Denies vomiting Genitourinary Genitourinary: Denies urinary frequency and Denies urinary hesitancy Musculoskeletal Musculoskeletal: Denies arthralgias, Denies back pain and Denies neck pain Integumentary/Breasts Skin/Breast: Denies rash and Denies skin pain Neurologic Neurologic: Denies vertigo, Denies dizziness and Denies headache(s) Endocrine Endocrine: Denies fatigue Patient History Medical History (Updated 03/18/21 @ 19:30 by Soo Morfin DO) Atrial fibrillation Volvulus of sigmoid colon Surgical History Status post colon resection Social History household members: spouse Smoking Status: Never smoker alcohol intake: current Smoking Status: Never smoker alcohol intake frequency: 3 or more drinks per day Alcohol type: wine Exam Initial Vital Signs Initial Vital Signs: Vital Signs Pulse Rate 113 H 03/18/21 14:45 Pulse Oximetry 97 03/18/21 14:45 GENERAL:Alert well-appearing 85-year-old male HEENT: Head atraumatic,EOMI, pupils reactive, face symmetric, moist mucous membranes CARDIOVASCULAR: Irregularly irregular without murmurs RESPIRATORY: Breath sounds equal bilaterally, no wheezes rales or rhonchi. ABDOMEN: Soft, nontender. Normoactive bowel sounds all 4 quadrants. No guarding or rebound. Scar noted on abdomen abdomen is soft and nontender EXTREMITIES: Normal range of motion, no clubbing or edema. Neurovascularly intact NEUROLOGICAL: Alert and oriented x4.Normal gait and speech. Cranial nerves II through XII grossly intact. Good [id number], good [id number], strength equal bilaterally, no dysarthria or aphasia, sensation in tact to soft touch bilaterally, no visual changes, no facial droop SKIN: Warm, dry, no laceration, no petechiae, no rashes or lesions. Course Orders Ordered: ED Orders 03/18/21 14:39 XR chest 1V Stat EKG-12 Lead Stat 03/18/21 15:05 Complete Blood Count AUTO DIFF Stat Comprehensive Metabolic Panel Stat Lipase Stat Magnesium Stat NT-proBNP (BNP-Adult 18+) Stat Troponin & CK Cardiac Panel Stat 03/18/21 18:15 COVID19 - ADMIT ([employer] swab/PCR) Stat Discontinued Medications Metoprolol Tartrate (Metoprolol Tartrate 5 Mg/5 Ml Inj) 5 mg IV NOW ONE Stop: 03/18/21 15:56 Last Admin: 03/18/21 17:17 Dose: 5 mg Documented by: HARI Metoprolol Tartrate (Metoprolol Ir 25 Mg Tablet) 25 mg PO NOW ONE Stop: 03/18/21 18:25 Last Admin: 03/18/21 18:49 Dose: 25 mg Documented by: HARI Vital Signs Vital signs: Vital Signs - 8 hr 03/18/21 14:45 03/18/21 14:50 03/18/21 15:00 Temperature 97.2 F L Pulse Rate 113 H 112 H 116 H Respiratory Rate 18 18 Blood Pressure 147/93 H Pulse Oximetry 97 100 96 03/18/21 15:01 03/18/21 15:30 03/18/21 15:31 Temperature Pulse Rate 111 H 119 H 115 H Respiratory Rate 17 18 15 Blood Pressure 135/94 H 137/108 H Pulse Oximetry 96 96 96 03/18/21 16:00 03/18/21 16:01 03/18/21 16:30 Temperature Pulse Rate 121 H 121 H 118 H Respiratory Rate 10 L 12 22 Blood Pressure 129/97 H Pulse Oximetry 95 96 96 03/18/21 17:00 03/18/21 17:03 03/18/21 17:30 Temperature Pulse Rate 116 H 119 H 116 H Respiratory Rate 16 23 12 Blood Pressure 130/108 H Pulse Oximetry 96 95 96 03/18/21 17:31 03/18/21 17:46 03/18/21 18:00 Temperature Pulse Rate 112 H 113 H 114 H Respiratory Rate 16 15 13 Blood Pressure 168/107 H 129/92 H Pulse Oximetry 96 96 96 03/18/21 18:01 03/18/21 18:15 03/18/21 18:30 Temperature Pulse Rate 116 H 112 H 114 H Respiratory Rate 16 20 11 L Blood Pressure 137/102 H 138/108 H Pulse Oximetry 95 97 97 03/18/21 19:00 Temperature Pulse Rate 113 H Respiratory Rate 14 Blood Pressure 132/98 H Pulse Oximetry 96 MDM - Syncope Lab Data Result diagrams: 03/18/21 15:05 03/18/21 15:05 Labs: Lab Results 03/18/21 03/18/21 03/18/21 Range/Units 15:05 15:05 15:05 WBC 5.4 (4.5-11.0) X10^3/uL RBC 4.39 L (4.5-5.9) X10^6/uL Hgb 14.2 (13.5-17.5) g/dL Hct 43.6 (41-53) % MCV 99.2 (80-100) fL MCH 32.4 (26-34) PG MCHC 32.7 (30-36) % RDW 13.7 (11.6-14.8) % Plt Count 146 L (150-400) X10^3/uL Neut % (Auto) 76.5 H (50-75) % Lymph % (Auto) 12.5 L (25-40) % Lassen % (Auto) 10.2 (3-14) % Eos % (Auto) 0.5 L (2-4) % Baso % (Auto) 0.3 (0-2) % Neut # (Auto) 4200 (5719-7102) /uL Lymph # (Auto) 700 L (0290-9290) /uL Lassen # (Auto) 600 (0-900) /uL Eos # (Auto) 0 (0-450) /uL Baso # (Auto) 0 (0-100) /uL Sodium 138 (137-145) mmol/L Potassium 4.6 (3.4-5.1) mmol/L Chloride 108 H (98-107) mmol/L Carbon Dioxide 23 (22-32) mmol/L BUN 25 H (9-20) mg/dL Creatinine 1.01 (0.66-1.25) mg/dL Estimated GFR > 60.0 (>60) mL/min BUN/Creatinine Ratio 24.8 H (6-22) Glucose 102 (80-110) mg/dL Calcium 8.9 (8.4-10.2) mg/dL Magnesium 2.1 (1.6-2.3) mg/dL Total Bilirubin 1.1 (0.2-1.3) mg/dL AST 26 (17-59) IU/L ALT 23 (<50) IU/L Alkaline Phosphatase 50 (38-126) U/L Total Creatine Kinase 143 (55-170) U/L CK-MB (CK-2) 1.57 (<2.37) ng/mL CK-MB (CK-2) Rel Index 1.1 L (1.5-5.0) % Troponin I < 0.012 (0.01-0.034) ng/mL NT-Pro-B Natriuret Pep 1810 H (<450) pg/mL Total Protein 6.6 (6.3-8.2) g/dL Albumin 3.9 (3.5-5.0) g/dL Globulin 2.7 (1.7-4.1) g/dL Albumin/Globulin Ratio 1.4 (1.0-2.8) Lipase 63 (23-300) U/L SARS-CoV-2 (PCR) (Negative) 03/18/21 Range/Units 18:15 WBC (4.5-11.0) X10^3/uL RBC (4.5-5.9) X10^6/uL Hgb (13.5-17.5) g/dL Hct (41-53) % MCV (80-100) fL MCH (26-34) PG MCHC (30-36) % RDW (11.6-14.8) % Plt Count (150-400) X10^3/uL Neut % (Auto) (50-75) % Lymph % (Auto) (25-40) % Lassen % (Auto) (3-14) % Eos % (Auto) (2-4) % Baso % (Auto) (0-2) % Neut # (Auto) (0267-3784) /uL Lymph # (Auto) (9447-1403) /uL Lassen # (Auto) (0-900) /uL Eos # (Auto) (0-450) /uL Baso # (Auto) (0-100) /uL Sodium (137-145) mmol/L Potassium (3.4-5.1) mmol/L Chloride (98-107) mmol/L Carbon Dioxide (22-32) mmol/L BUN (9-20) mg/dL Creatinine (0.66-1.25) mg/dL Estimated GFR (>60) mL/min BUN/Creatinine Ratio (6-22) Glucose (80-110) mg/dL Calcium (8.4-10.2) mg/dL Magnesium (1.6-2.3) mg/dL Total Bilirubin (0.2-1.3) mg/dL AST (17-59) IU/L ALT (<50) IU/L Alkaline Phosphatase (38-126) U/L Total Creatine Kinase (55-170) U/L CK-MB (CK-2) (<2.37) ng/mL CK-MB (CK-2) Rel Index (1.5-5.0) % Troponin I (0.01-0.034) ng/mL NT-Pro-B Natriuret Pep (<450) pg/mL Total Protein (6.3-8.2) g/dL Albumin (3.5-5.0) g/dL Globulin (1.7-4.1) g/dL Albumin/Globulin Ratio (1.0-2.8) Lipase (23-300) U/L SARS-CoV-2 (PCR) Negative (Negative) Imaging Data Chest x-ray: Radiologist's Impression: PROCEDURE: XR CHEST 1V INDICATIONS: chest pain TECHNIQUE: One view of the chest was acquired. COMPARISON: [facility], CHEST 1 VIEW, 01/11/2011, 16:10. [facility], CHEST 1 VIEW, 12/21/2016, 15:34. FINDINGS: Surgical changes and devices: None. Lungs and pleura: Lungs are clear. No pleural effusions or pneumothorax. Mediastinum: The cardiac contours are within normal limits. The aorta demonstrates calcification and tortuosity. Bones and chest wall: No suspicious bony lesions. Age-appropriate bony degenerative changes are seen. Overlying soft tissues appear unremarkable. IMPRESSION: No acute abnormality is seen for age. Dictated by: Yaya Steinberg M.D. on 03/18/2021 at 13:55 ECG Data Interpretation: Atrial fibrillation rate [address] changes atrial fibrillation new from previous EKG MDM Narrative Medical decision making narrative: Patient is not on any anti-platelet or anticoagulation. No significant trauma he fell to his head with brief syncopal episode lasting only seconds. At this time no need for head CT. He has no focal neurologic deficits. 1734-I discussed case with Cardiology Dr. Kwok. Concern is for ventricular a arrhythmia with low EF. At this time he recommends stopping diltiazem and atenolol is starting metoprolol. Recommends metoprolol tartrate 25 mg q.i.d. titrating up into his rate is controlled less than 100 beats per minute and keeping him on the monitor. Dr. jenkins 0 updated on patient's symptoms test results cardiology recommendations and agrees to observation Discharge Plan Departure Patient Disposition: Admitted as Observation Clinical Impression: Atrial fibrillation Syncope Qualifiers: Syncope type: unspecified Qualified Code(s): R55 - Syncope and collapse Admit Date/Time: 03/18/21 19:11
[2021-03-18 15:17] LABS: Add Manual Diff / Slide Review NO; Basophils Absolute Auto 0 /uL (0-100); Basophils Percent Auto 0.3 % (0-2); Eosinophils Absolute Auto 0 /uL (0-450); Eosinophils Percent Auto 0.5 % (2-4); Hematocrit 43.6 % (41-53); Hemoglobin 14.2 g/dL (13.5-17.5); Lymphocytes Absolute Auto 700 /uL (1100-4500); Lymphocytes Percent Auto 12.5 % (25-40); Mean Corpuscular HGB Conc 32.7 % (30-36); Mean Corpuscular Hemoglobin 32.4 PG (26-34); Mean Corpuscular Volume 99.2 fL (80-100); Monocytes Absolute Auto 600 /uL (0-900); Monocytes Percent Auto 10.2 % (3-14); Neutrophils Absolute Auto 4200 /uL (1500-7000); Neutrophils Percent Auto 76.5 % (50-75); Platelet Count 146 X10^3/uL (150-400); Red Blood Cell Count 4.39 X10^6/uL (4.5-5.9); Red Cell Distribution Width 13.7 % (11.6-14.8); White Blood Cell Count 5.4 X10^3/uL (4.5-11.0)
[2021-03-18 15:35] LABS: Magnesium 2.1 mg/dL (1.6-2.3)
[2021-03-18 15:36] LABS: Alanine Aminotransferase 23 IU/L (<50); Albumin 3.9 g/dL (3.5-5.0); Albumin Globulin Ratio 1.4 (1.0-2.8); Alkaline Phosphatase 50 U/L (38-126); Aspartate Aminotransferase 26 IU/L (17-59); BUN Creatinine Ratio 24.8 (6-22); Bilirubin Total 1.1 mg/dL (0.2-1.3); Blood Urea Nitrogen 25 mg/dL (9-20); Calcium 8.9 mg/dL (8.4-10.2); Carbon Dioxide 23 mmol/L (22-32); Chloride 108 mmol/L (98-107); Creatine Kinase 143 U/L (55-170); Estimated Glomerular Filt Rate > 60.0 mL/min (>60); Globulin 2.7 g/dL (1.7-4.1); Glucose 102 mg/dL (80-110); Lipase 63 U/L (23-300); Potassium 4.6 mmol/L (3.4-5.1); Sodium 138 mmol/L (137-145); Total Protein 6.6 g/dL (6.3-8.2)
[2021-03-18 15:44] LABS: NT-proBNP (BNP-Adult 18+) 1810 pg/mL (<450)
[2021-03-18 15:46] LABS: Troponin I < 0.012 ng/mL (0.01-0.034)
[2021-03-18 15:51] LABS: CKMB % Relative Index 1.1 % (1.5-5.0); Creatine Kinase MB 1.57 ng/mL (<2.37); HEMOLYSIS 17 (0-50)
[2021-03-18] MEDS: METOPROLOL TARTRATE 5 MG/5 ML INJ IV ×2 (17:17→19:53)
[2021-03-18] MEDS: METOPROLOL IR 25 MG TABLET PO (18:49)
[2021-03-18 19:14] LABS: COVID19 - ADMIT (NP swab/PCR) Negative (Negative)
--- NOTE | 2021-03-18 19:28 | P.HP_ITS ---
History of Present Illness History of Present Illness Date Patient Seen: 03/18/21 Time Patient Seen: 19:29 Chief complaint: Syncope Narrative: Patient is an 85-year-old male with history of atrial fibrillation his previous GI bleed not on anticoagulation presenting with a syncopal episode. He said that came on suddenly had a brief episode where he passed out said it was only his for a few seconds while he was laying in bed. He felt like his AFib was acting up. He is on diltiazem and atenolol for it. No head injury. He has no complaints now. He denies any dizziness lightheadedness nausea vomiting or chest discomfort. Patient reports that he has been having lightheadedness and dizziness with increasing frequency over the past several years and was seen at [facility] and had an echo done on 03/14/2021. It was at this visit and that they added diltiazem and stop the lisinopril HCTZ. Currently resting in bed patient denies any symptoms at this time. He does not sense his atrial Fib, only recognizes his lightheadedness and dizziness. Patient denies chest pain, shortness of breath, nausea, vomiting, recent illness, abdominal pain, abnormal swelling of hands or feet, changes in vision, headache, weakness, numbness or tingling. 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 Patient has taken diltiazem for several years, has only taken 2 doses of atenolol, 81mgASA,simvastatin, and on very rare occasions Shannon (pt aware of the hypotensive risks with this medication. Upon admit patient was resting comfortably in bed in no distress with continuing hypertensive urgency in atrial fibrillation with RVR with a BP 138/108, 162/116, HR 110-120, RR 20, and O2 saturation 97% on room air. Patient's CBC was predominantly within normal limits with the exception of a platelet count of 146. Patient only had a mildly elevated BUN at 25, all other chemistries including a Mag were within normal limits. Troponin was negative. Patient had a mildly elevated BNP 1810. Patient's chest x-ray demonstrated no acute cardiopulmonary abnormalities. EKG demonstrated Atrial fibrillation rate [address] changes, atrial fibrillation new from previous EKG. Patient is not on any anti-platelet or anticoagulation. No significant trauma he fell to his head with brief syncopal episode lasting only seconds. At this time no need for head CT. He has no focal neurologic deficits. ED Consult with Cardiology Dr. Kwok. Concern is for ventricular arrhythmia with low EF. At this time he recommends stopping diltiazem and atenolol is starting metoprolol. Recommends metoprolol tartrate 25 mg q.i.d. titrating up into his rate is controlled less than 100 beats per minute and keeping him on the monitor. Patient admitted for atrial fibrillation with RVR and hypertensive urgency with syncope. Patient History Medical History (Updated 03/18/21 @ 22:58 by VEE Oliveira) Atrial fibrillation Chronic left ventricular systolic heart failure Hyperlipidemia Hypertension, essential Volvulus of sigmoid colon Surgical History Status post colon resection Family & Social History Family History (Updated 03/18/21 @ 22:59 by VEE Oliveira) Mother Hypertension Blood clot in vein Father Heart attack Social History: household members spouse Safety & Behavioral: Feels Safe in Current Yes patient lives with his spouse Environment Been Physically Hurt or No Threatened By a Person Tobacco & Substance use: Smoking Status Never smoker alcohol intake current alcohol intake frequency 3 or more drinks per day Substance Use Type does not use Meds Home Medications and Allergies Home Medications Medication Instructions Recorded Confirmed Type simvastatin 20 mg tablet 10 mg PO HS #0 12/21/16 03/18/21 History aspirin 81 mg tablet,delayed 81 mg PO DAILY 10/30/19 03/18/21 History release diltiazem HCl 240 mg capsule,24 240 mg PO QAM 10/30/19 03/18/21 History hr,extended release Allergies Allergy/AdvReac Type Severity Reaction Status Date / Time No Known Drug Allergies Allergy Verified 10/30/19 18:54 Review of Systems Review of Systems Narrative: Patient denies any signs and symptoms at time, and/or otherwise documented in HPI. Exam Vital Signs (past 8 hours): - 03/18/21 14:45 03/18/21 14:50 03/18/21 15:00 Temperature 97.2 F L Pulse Rate 113 H 112 H 116 H Respiratory Rate 18 18 Blood Pressure 147/93 H Pulse Oximetry 97 100 96 03/18/21 15:01 03/18/21 15:30 03/18/21 15:31 Temperature Pulse Rate 111 H 119 H 115 H Respiratory Rate 17 18 15 Blood Pressure 135/94 H 137/108 H Pulse Oximetry 96 96 96 03/18/21 16:00 03/18/21 16:01 03/18/21 16:30 Temperature Pulse Rate 121 H 121 H 118 H Respiratory Rate 10 L 12 22 Blood Pressure 129/97 H Pulse Oximetry 95 96 96 03/18/21 17:00 03/18/21 17:03 03/18/21 17:30 Temperature Pulse Rate 116 H 119 H 116 H Respiratory Rate 16 23 12 Blood Pressure 130/108 H Pulse Oximetry 96 95 96 03/18/21 17:31 03/18/21 17:46 03/18/21 18:00 Temperature Pulse Rate 112 H 113 H 114 H Respiratory Rate 16 15 13 Blood Pressure 168/107 H 129/92 H Pulse Oximetry 96 96 96 03/18/21 18:01 03/18/21 18:15 03/18/21 18:30 Temperature Pulse Rate 116 H 112 H 114 H Respiratory Rate 16 20 11 L Blood Pressure 137/102 H 138/108 H Pulse Oximetry 95 97 97 03/18/21 19:00 Temperature Pulse Rate 113 H Respiratory Rate 14 Blood Pressure 132/98 H Pulse Oximetry 96 Oxygen Delivery Method Room Air Narrative Exam Narrative: General: Patient is a well-developed, well-nourished in no distress at this time. HEENT: Normocephalic, atraumatic, extraocular muscles intact, oral pharynx is clear and mucous membranes are moist. Neck is supple and symmetric, trachea is midline, no adenopathy, no thyroid enlargement, nontender, no masses palpated. Negative for JVD, Wear Glasses Chest: Normal AP diameter and contour without kyphoscoliosis, no nasal flaring, retractions, or tachypneic labored Lungs: Auscultation of all lung phillip are clear without adventitious sounds, wheezes, rhonchi, or rales. Cardio: Irregular rhythm without murmur, rubs, or gallops, no carotid bruit, no cardiac pulsations present. Abdomen: Soft nontender, negative for organomegaly, or masses. Bowel sounds are present in all 4 quadrants without guarding or rebound, no CVA tenderness. Musculoskeletal: Muscle strength and tone are equal within normal limits, no deformity, crepitus, effusions, cyanosis, clubbing or edema present. Full range of motion intact radial and pedal pulses are normal. Skin: Warm dry and intact without rashes, ulcerations or petechiae. Neuro: Alert and orientated x3, strength is +5/5 in all extremities, sensation to touch intact, no gross deficits noted of cranial nerves. Psych: Patient has a well-kept appearance, appropriate affect, mental status attitude thought context and judgment are appropriate for age. Objective Labs Result Diagrams: 03/18/21 15:05 03/18/21 15:05 Labs: Laboratory Results - last 24 hr 03/18/21 03/18/21 03/18/21 15:05 15:05 15:05 WBC 5.4 RBC 4.39 L Hgb 14.2 Hct 43.6 MCV 99.2 MCH 32.4 MCHC 32.7 RDW 13.7 Plt Count 146 L Neut % (Auto) 76.5 H Lymph % (Auto) 12.5 L [place] % (Auto) 10.2 Eos % (Auto) 0.5 L Baso % (Auto) 0.3 Neut # (Auto) 4200 Lymph # (Auto) 700 L [place] # (Auto) 600 Eos # (Auto) 0 Baso # (Auto) 0 Sodium 138 Potassium 4.6 Chloride 108 H Carbon Dioxide 23 BUN 25 H Creatinine 1.01 Estimated GFR > 60.0 BUN/Creatinine Ratio 24.8 H Glucose 102 Calcium 8.9 Magnesium 2.1 Total Bilirubin 1.1 AST 26 ALT 23 Alkaline Phosphatase 50 Total Creatine Kinase 143 CK-MB (CK-2) 1.57 CK-MB (CK-2) Rel Index 1.1 L Troponin I < 0.012 NT-Pro-B Natriuret Pep 1810 H Total Protein 6.6 Albumin 3.9 Globulin 2.7 Albumin/Globulin Ratio 1.4 Lipase 63 SARS-CoV-2 (PCR) 03/18/21 18:15 WBC RBC Hgb Hct MCV MCH MCHC RDW Plt Count Neut % (Auto) Lymph % (Auto) [place] % (Auto) Eos % (Auto) Baso % (Auto) Neut # (Auto) Lymph # (Auto) [place] # (Auto) Eos # (Auto) Baso # (Auto) Sodium Potassium Chloride Carbon Dioxide BUN Creatinine Estimated GFR BUN/Creatinine Ratio Glucose Calcium Magnesium Total Bilirubin AST ALT Alkaline Phosphatase Total Creatine Kinase CK-MB (CK-2) CK-MB (CK-2) Rel Index Troponin I NT-Pro-B Natriuret Pep Total Protein Albumin Globulin Albumin/Globulin Ratio Lipase SARS-CoV-2 (PCR) Negative Assessment & Plan Assessment & Plan narrative: 1. Atrial fibrillation with RVR recent diagnosis, with hypertensive urgency and syncope, acute, present on admission, in the setting essential hypertension, chronic, uncontrolled, and left systolic heart failure EF 30-35%, acute on chronic, present on admission -as evidence by BNP of 1810, BP 162/116, HR 113, R 20, O2 saturation 97% on room air Admit telemetry -monitor for complications stroke, heart failure, dementia -Goal rate control <100 -vital signs q.1 once SBP<180 & DBP <100 change to [id number] -activity as tolerated- up with assistance only, bed-bedside commode (Syncopal episode today) -Fall precautions: OT/PT eval tomorrow. -O2 PRN-Goal O2< 92%. Strict I&O Q shift, orthostatics Q shift, weights daily. -Diet: heart healthy -fluids: -meds:metoprolol 5 mg IV Now- Then metoprolol 25 mg p.o. q.6. -Goal: heart rate less than 110 at rest -systolic Left heart failure & LVEEF <40%, can do more stringent rate control 60-80 rest -Hold Metoprolol if systolic blood pressure< 90 or heart rate is< 60. -May consider due to advanced heart failure, if significant hypotension presents changing to digoxin -labs BMP, H&H, trending troponins x3 q.6 hours, TSH, monitor electrolytes and supplement as indicated keep potassium> 4, magnesium> 2 -Diagnostics: Last echo by Dr. Jones Cardiology 03/14/2021: Left systolic heart failure with an ejection fraction 30-35% -Dr. Jones Cardiology ordered that no anticoagulantion be provided due to patient's previous GI bleed 2. hyperlipidemia, chronic, present on admission -continue patient's simvastatin 3. 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 Jones Cardiology request, SCDs only Estimated length of stay: Less than 2 midnight Scores GCS Marianne coma scale eye opening: Spontaneous [place]ne coma scale verbal response: Orientated Marianne coma scale motor response: Obey commands [place] coma scale total score: 15 CHADS-VASc Congestive heart failure: no Hypertension: yes Age 75 years or older: yes Diabetes mellitus: no Stroke, TIA, or TE: no Vascular disease: no Age 65 to 74 years: no Sex category (female): Male CHADS-VASc Score: 3 Quality MIPS - Admit I confirm the patient?s Advance Care Plan is present, Code status is documented, Surrogate decision maker is in patient?s record [If Yes, STOP here]: Yes
[2021-03-18 20:13] LABS: Thyroid Stimulating Hormone 1.79 uIU/mL (0.47-4.68)
[2021-03-18] MEDS: SENNOSIDES 8.6 MG TABLET 17.2 MG PO (21:15)
[2021-03-19] VITALS (13 sets, daily range): BP systolic 128–148; BP diastolic 78–104; PULSE 75–106; RESP 16–19; TEMP 36.1–36.8; O2SAT 93–97
[2021-03-19] MEDS: METOPROLOL IR 25 MG TABLET PO ×4 (00:07→18:09)
[2021-03-19 05:02] LABS: Hematocrit 42.9 % (41-53); Hemoglobin 14.1 g/dL (13.5-17.5)
[2021-03-19 05:26] LABS: BUN Creatinine Ratio 21.4 (6-22); Blood Urea Nitrogen 21 mg/dL (9-20); Calcium 8.8 mg/dL (8.4-10.2); Carbon Dioxide 22 mmol/L (22-32); Chloride 108 mmol/L (98-107); Estimated Glomerular Filt Rate > 60.0 mL/min (>60); Glucose 106 mg/dL (80-110); HEMOLYSIS < 15 (0-50); Magnesium 2.1 mg/dL (1.6-2.3); Potassium 4.2 mmol/L (3.4-5.1); Sodium 137 mmol/L (137-145)
[2021-03-19 05:38] LABS: NT-proBNP (BNP-Adult 18+) 2400 pg/mL (<450); Troponin I < 0.012 ng/mL (0.01-0.034)
--- NOTE | 2021-03-19 07:55 | P.PN_ITS ---
Subjective Subjective Date Patient Seen: 03/19/21 Interval history: He is still feeling lightheaded at times. His BNP is normal and his hemoglobin is normal today. He has been tolerating the metoprolol tartrate with normal vital signs. He has apparently not had any recent HEALTH CARE LIAISON imaging and so a brain MRI will be done today. Exam Vital Signs (past 8 hours): - 03/19/21 00:21 03/19/21 03:00 03/19/21 04:00 Temperature 97.3 F L Pulse Rate 87 Pulse Rate [Orthostatic Lying] Pulse Rate [Orthostatic Sitting] Pulse Rate [Orthostatic Standing] Respiratory Rate 16 Blood Pressure 140/104 H Blood Pressure [Orthostatic Lying] Blood Pressure [Orthostatic Sitting] Blood Pressure [Orthostatic Standing] Pulse Oximetry 96 96 93 03/19/21 04:30 03/19/21 05:00 03/19/21 05:42 Temperature 98.3 F Pulse Rate 93 H Pulse Rate [Orthostatic Lying] 106 H Pulse Rate [Orthostatic Sitting] 104 H Pulse Rate [Orthostatic Standing] 75 Respiratory Rate 19 Blood Pressure 135/90 Blood Pressure [Orthostatic Lying] 139/89 Blood Pressure [Orthostatic Sitting] 133/88 Blood Pressure [Orthostatic Standing] 129/78 Pulse Oximetry 95 93 93 03/19/21 07:43 Temperature Pulse Rate 90 Pulse Rate [Orthostatic Lying] Pulse Rate [Orthostatic Sitting] Pulse Rate [Orthostatic Standing] Respiratory Rate 16 Blood Pressure Blood Pressure [Orthostatic Lying] Blood Pressure [Orthostatic Sitting] Blood Pressure [Orthostatic Standing] Pulse Oximetry 93 Oxygen Delivery Method Room Air Oxygen Flow Rate 0 Narrative Exam Narrative: He is alert and oriented x3. No apparent distress. Lungs are clear to auscultation bilaterally Heart is irregularly irregular without murmur Extremities have no ankle edema Objective Labs Result Diagrams: 03/19/21 04:40 03/19/21 04:40 Labs: Laboratory Results - last 24 hr 03/18/21 03/18/21 03/18/21 15:05 15:05 15:05 WBC 5.4 RBC 4.39 L Hgb 14.2 Hct 43.6 MCV 99.2 MCH 32.4 MCHC 32.7 RDW 13.7 Plt Count 146 L Neut % (Auto) 76.5 H Lymph % (Auto) 12.5 L [place] % (Auto) 10.2 Eos % (Auto) 0.5 L Baso % (Auto) 0.3 Neut # (Auto) 4200 Lymph # (Auto) 700 L [place] # (Auto) 600 Eos # (Auto) 0 Baso # (Auto) 0 Sodium 138 Potassium 4.6 Chloride 108 H Carbon Dioxide 23 BUN 25 H Creatinine 1.01 Estimated GFR > 60.0 BUN/Creatinine Ratio 24.8 H Glucose 102 Calcium 8.9 Magnesium 2.1 Total Bilirubin 1.1 AST 26 ALT 23 Alkaline Phosphatase 50 Total Creatine Kinase 143 CK-MB (CK-2) 1.57 CK-MB (CK-2) Rel Index 1.1 L Troponin I < 0.012 NT-Pro-B Natriuret Pep 1810 H Total Protein 6.6 Albumin 3.9 Globulin 2.7 Albumin/Globulin Ratio 1.4 Lipase 63 TSH SARS-CoV-2 (PCR) 03/18/21 03/18/21 03/19/21 15:05 18:15 04:40 WBC RBC Hgb 14.1 Hct 42.9 MCV MCH MCHC RDW Plt Count Neut % (Auto) Lymph % (Auto) [place] % (Auto) Eos % (Auto) Baso % (Auto) Neut # (Auto) Lymph # (Auto) [place] # (Auto) Eos # (Auto) Baso # (Auto) Sodium Potassium Chloride Carbon Dioxide BUN Creatinine Estimated GFR BUN/Creatinine Ratio Glucose Calcium Magnesium Total Bilirubin AST ALT Alkaline Phosphatase Total Creatine Kinase CK-MB (CK-2) CK-MB (CK-2) Rel Index Troponin I NT-Pro-B Natriuret Pep Total Protein Albumin Globulin Albumin/Globulin Ratio Lipase TSH 1.79 SARS-CoV-2 (PCR) Negative 03/19/21 04:40 WBC RBC Hgb Hct MCV MCH MCHC RDW Plt Count Neut % (Auto) Lymph % (Auto) [place] % (Auto) Eos % (Auto) Baso % (Auto) Neut # (Auto) Lymph # (Auto) [place] # (Auto) Eos # (Auto) Baso # (Auto) Sodium 137 Potassium 4.2 Chloride 108 H Carbon Dioxide 22 BUN 21 H Creatinine 0.98 Estimated GFR > 60.0 BUN/Creatinine Ratio 21.4 Glucose 106 Calcium 8.8 Magnesium 2.1 Total Bilirubin AST ALT Alkaline Phosphatase Total Creatine Kinase CK-MB (CK-2) CK-MB (CK-2) Rel Index Troponin I < 0.012 NT-Pro-B Natriuret Pep 2400 H Total Protein Albumin Globulin Albumin/Globulin Ratio Lipase TSH SARS-CoV-2 (PCR) PFSH Medical History (Updated 03/18/21 @ 22:58 by ERASMO Oliveira-MARILIN) Atrial fibrillation Chronic left ventricular systolic heart failure Hyperlipidemia Hypertension, essential Volvulus of sigmoid colon Surgical History Status post colon resection Family History (Updated 03/18/21 @ 23:00 by ERASMO Oliveira-MARILIN) Mother Hypertension Blood clot in vein Father Heart attack Social History household members: spouse Smoking Status: Never smoker alcohol intake: current Assessment & Plan Assessment & Plan narrative: 1. Atrial fibrillation with RVR recent diagnosis, with hypertensive urgency and Syncope, acute, present on admission -essential hypertension and left systolic heart failure EF 30-35% -activity as tolerated - advance today per PT/OT (Syncopal episode yesterday) -Metoprolol Tartrate 25 mg p.o. q.6. -Diagnostics: Last echo by Dr. Kwok Cardiology 03/14/2021: Left systolic heart failure with an ejection fraction 30-35% -avoid anticoagulation due to patient's previous GI bleed -anticipate discharge home on 03/20 after 24 hours of Vital Signs and Telemetry monitoring on new Metoprolol dosing 2. hyperlipidemia, chronic, present on admission -continue patient's simvastatin 3. 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 Lightheadedness, present on admission. Active. -Brain MRI and PT/OT evaluations Code status:Full Surrogate decision maker: Spouse Alison Garcia DVT/VTE prophylaxis: Medication contraindicated, SCDs only Quality VTE Deep Vein Thrombosis/Pulmonary Embolism Present on Admission: No
--- NOTE | 2021-03-19 09:12 | DI.MRI.S_ITS ---
PROCEDURE: MR HEAD/BRAIN WO CON INDICATIONS: Syncope TECHNIQUE: Non-contrast axial T1 spin echo, axial T2 fast spin echo, sagittal and axial FLAIR, coronal T2 fast spin echo, axial gradient echo, axial diffusion and ADC through the brain. COMPARISON: None. FINDINGS: Image quality: Excellent. CSF spaces: Ventricles appear symmetric in size and shape. Basal cisterns are patent. No extra-axial fluid collections. Brain: No intracranial bleeds or mass effects. There is cerebral volume loss for age. There are periventricular and deep white matter chronic small vessel ischemic changes. Brainstem appears normal. Diffusion-weighted images show no acute ischemic insults. No chronic ischemic insults. Normal intravascular flow voids are present. Relatively prominent perivascular spaces are noted. Skull and face: Calvarial bone marrow is normal in signal. Orbits are normal. Note is made of bilateral lens replacements. Sinuses: Sinuses and mastoids are clear. IMPRESSION: No acute or subacute infarction can be seen. No acute intracranial process is seen. Note is made of age-appropriate brain parenchymal volume loss and chronic small vessel ischemic changes. Dictated by: Yaya Steinberg M.D. on 03/19/2021 at 11:25 Approved by: Yaya Steinberg M.D. on 03/19/2021 at 11:26
--- NOTE | 2021-03-19 11:55 | PT-IP ANOTE ---
Pt order: Bedrest w/bedside commode. Nursing to check with MD for appropriateness of PT evaluation.
--- NOTE | 2021-03-19 14:25 | OT.IP.EVAL ---
Past Medical History (Last Updated 03/18/21 @ 22:58 by Linda Copeland [facility]) Atrial fibrillation Chronic left ventricular systolic heart failure Hyperlipidemia Hypertension, essential Status post colon resection Volvulus of sigmoid colon Surgical History (Last Reviewed 03/18/21 @ 19:32 [facility] Status post colon resection Occupational Therapy Inpatient Evaluation/Re-Eval M1 PT/OT-IP Prior Functional Status Start: 03/19/21 08:40 Freq: NEEDED Status: Active Protocol: Document 03/19/21 17:02 CGR (Rec: 03/19/21 17:08 [facility] [id number]) Medical Review Prior Functional Status Medical History Reviewed Yes Communication Normal Mobility and Gait Independent Activities of Daily Living and IADL's Independent Social History Household Members spouse Living Arrangements House Number of Floors (Floors) One Floor Number of Stairs To Enter/Railing? 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 M1 PT/OT-IP Prior Functional Status Start: 03/19/21 17:02 Freq: NEEDED Status: Active Protocol: Document 03/19/21 17:02 CGR (Rec: 03/19/21 17:08 R [id number]) Medical Review Prior Functional Status Medical History Reviewed Yes Communication Normal Mobility and Gait Independent Activities of Daily Living and IADL's Independent Social History Household Members spouse Living Arrangements House Number of Floors (Floors) One Floor Number of Stairs To Enter/Railing? 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 M2 OT-IP Current Condition Start: 03/19/21 17:02 Freq: Status: Active Protocol: Document 03/19/21 17:02 CGR (Rec: 03/19/21 17:08 R [id number]) Occupational Therapy Current Condition Current Condition Evaluation Date 03/19/21 Treatment Diagnosis Syncope Diagnosis Onset Date 03/18/21 M3 OT- IP Subjective and Pain Start: 03/19/21 17:02 Freq: Status: Active Protocol: Document 03/19/21 17:02 CGR (Rec: 03/19/21 17:08 CGR [id number]) OT- Subjective Occupational Therapy Visit Type Type Initial Evaluation Visit Start Time 14:00 Visit Stop Time 14:25 Total Visit Minutes 25 Notes Pt's present throguhout. OT Pain Assessment Pain When Pain Assessed At Rest Pain Present Pain Present Denied Pain M4 OT- IP ADL's Start: 03/19/21 17:02 Freq: Status: Active Protocol: Document 03/19/21 17:02 CGR (Rec: 03/19/21 17:08 CGR [id number]) OT [id number] Comments OT Self-Feeding Comments Not meal time OT ADL-Grooming Comments OT Grooming Comments Not performed, pt states performed this AM OT ADL-Oral Care Comments Oral Care Comments Not performed, pt states performed this AM OT ADL-Dressing General Eval Lower Body Dressing Ability Independent Areas Needing Assistance Socks OT ADL-Toileting General Evaluation Toileting Ability Independent OT ADL-Bathing Comments OT Bathing Comments Not performed M5 OT- IP IADL's Start: 03/19/21 17:02 Freq: Status: Active Protocol: Document 03/19/21 17:02 CGR (Rec: 03/19/21 17:08 CGR [id number]) OT-Instrumental Activities of Daily Living Deficits IADL Deficits Identified No Deficits Home Safety Awareness Awareness of Need for Assistance at Home Good Awareness Ability to Problem Solve Emergency Able to Problem Solve Situations Medication Management Medication Management No Deficits Identified Money Management Money Management No Deficits Identified Meal Preparation Meal Preparation No Deficits Identified Coding Tech Coding Tech No Deficits Identified Driving Driving Comments 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 OT- IP Functional Cognition Start: 03/19/21 17:02 Freq: Status: Active Protocol: Document 03/19/21 17:02 CGR (Rec: 03/19/21 17:08 CGR [id number]) Cognitive Factors Limiting Selfcare Function Cognitive Ability Level of Alertness Alert Patient Orientation Name,Age,Birthday,Month,Date, Year,Day of Week,Place, Situation Attention Span Ability Capable of Focused Attention, Capable of Sustained Attention Ability to Follow Commands Able to Follow Multi-Step Commands OT- Vision and Hearing OT- Hearing Assessment OT- Hearing Assessment Hearing Impaired,Use of Hearing Aids OT- Vision Assessment Visual Acuity Glasses For Reading Visual Attentiveness WFL Occular Pursuits WFL Visual Convergence WFL Vision Assessment Comments Pt with delayed visual tracking M7 OT- IP Mobility and Balance Start: 03/19/21 17:02 Freq: Status: Active Protocol: Document 03/19/21 17:02 CGR (Rec: 03/19/21 17:08 R [id number]) OT- Bed Mobility Assessment Supine to Sit Supine to Sit Assist Independent Sit to Supine Sit to Supine Assist Independent Scooting Scooting to Edge of Bed Independent OT-Transfer Assessment Sit to and From Stand Sit to and from Stand Independent Transfers Transfer Ability Independent Technique Transfer Destination Bed,Toilet Transfer Technique Stand Step Pivot Devices Transfer Assistive Devices Gait Belt OT- Gait Assessment Gait Gait Assistance Required: Independent Assistive Devices Assistive Device Gait Belt OT- Balance Assessment Sitting Balance and Reactions Static Sitting Balance Ability Normal Dynamic Sitting Balance Ability Normal M8 OT- IP Objective Assessments Start: 03/19/21 17:02 Freq: Status: Active Protocol: Document 03/19/21 17:02 CGR (Rec: 03/19/21 17:08 R [id number]) OT Gross Range of Motion Upper Extremity Range of Motion Assessment Within Functional Limits OT Strength Upper Extremity Strength Assessment Within Functional Limits Comments Strength Comments grossly 4+/5 OT- Coordination Assessment Upper Extremity Finger to Nose Test Within Functional Limits Finger Tapping Test Within Functional Limits OT-Muscle Tone Assessment Muscle Tone WNL Yes OT Sensation Assessment Edema Edema Absent M9 OT- IP Assessment and Plan Start: 03/19/21 17:02 Freq: Status: Active Protocol: Document 03/19/21 17:02 CGR (Rec: 03/19/21 17:08 R [id number]) OT Summary Assessment and Plan Potential Rehabilitation Potential Excellent Analytic Complexity at Evaluation Low Summary Progress Towards Goals Goals Met Assessment Summary Pt presents as a low complexity evaluation s/p admit for syncope. Pt demonstrates IND for mobility and ADLs. No further OT needs. Frequency of Treatment Frequency Of Treatment Discharge Discharge Recommendations OT Discharge Recommendations Home Transportation Needs at Discharge Private Vehicle
--- NOTE | 2021-03-19 15:28 | PC.NURSE ---
MRI done today, awaiting results. Metoprolol effective tele remains. BP stable. Pt to be evaled by PT.
--- NOTE | 2021-03-19 15:35 | PT.IIE ---
Medical History (Last Updated 03/18/21 @ 22:58 by Linda Copeland, [facility]) Atrial fibrillation Chronic left ventricular systolic heart failure Hyperlipidemia Hypertension, essential Volvulus of sigmoid colon Physical Therapy Inpatient Evaluation/Re-Eval M1 PT/OT-IP Prior Functional Status Start: 03/19/21 08:40 Freq: NEEDED Status: Active Protocol: Document 03/19/21 15:01 LRN (Rec: 03/19/21 15:34 LRN [id number]) Medical Review Prior Functional Status Medical History Reviewed Yes Communication Normal Mobility and Gait Independent Activities of Daily Living and IADL's Independent Social History Household Members spouse Living Arrangements House Number of Floors (Floors) One Floor Number of Stairs To Enter/Railing? 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 L syst heart failure Onset Date 03/18/21 Weight Bearing Status Weight Bearing Status Full Weight Bearing M3 PT-IP Subjective Start: 03/19/21 08:40 Freq: NEEDED Status: Active Protocol: Document 03/19/21 15:01 LRN (Rec: 03/19/21 15:34 LRN [id number]) Subjective Physical Therapy Visit Type Type Initial Evaluation Visit Start Time 14:30 Visit Stop Time 15:03 Total Visit Minutes 33 Physical Therapy Visit Comments Patient Comments Had just finished brain MRI & OT evaluation. Walked to bathroom and back. Patient Goals Pt goal is to go home, and find out what is wrong. M4 PT-IP Mobility and Gait Start: 03/19/21 08:40 Freq: NEEDED Status: Active Protocol: Document 03/19/21 15:01 LRN (Rec: 03/19/21 15:34 LRN [id number]) PT-Bed Mobility Assessment Rolling Level of Assist Independent Sit to Supine Sit to Supine Independent Scooting Scooting Up and Down in Bed Independent PT-Transfer Assessment Sit to and From Stand Sit to and from Stand Independent Equipment Transfer Assistive Device None,Gait Belt Orthotic/Prosthetic Devices or Brace: No Transfers Transfer Destination Bed Transfer Technique Walking Transfer Ability Level of Assist Independent Comments Mobility Comments Pt lightheaded upon standing that resolved after ~1 minute. Vitals taken: Rest (in bed): BP 122/101, HR 109, SpO2 96% Sitting: BP 126/71, HR 78 After walking (sit) BP 116/77 , HR 105, SpO2 97% Gait Assessment Gait Gait Assistance Required: Independent Distance (Feet) 100 Able to Maintain Weight Bearing Status Yes During Gait Assistive Devices Assistive Device None,Gait Belt Orthotic/Prosthetic Devices or Brace: Yes Gait Deviations General Gait Pattern Within Normal Limits,Wide Based Gait Factors Limiting Gait Function Factors Limiting Gait Function Decreased Activity Tolerance Comments Gait Comments Pt showed no signs of distress with gait. PT-Balance Assessment Sitting Balance and Reactions Static Sitting Balance Ability Normal Dynamic Sitting Balance Ability Normal Standing Balance and Reactions Static Standing Balance Ability Normal M5 PT-IP Objective Assessments Start: 03/19/21 08:40 Freq: NEEDED Status: Active Protocol: Document 03/19/21 15:01 LRN (Rec: 03/19/21 15:34 LRN [id number]) Orientation Orientation/Cognition Level of Alertness Alert Orientation Name,Place,Situation Language Function Ability No Deficits Noted Safety Awareness Understands Safety Issues Memory Description No Deficits Noted Gross Range of Motion Upper Extremity ROM Assessment Within Functional Limits Lower Extremity ROM Assessment Within Functional Limits Strength Lower Extremity Strength Assessment Within Functional Limits Other Assessments Other Other Assessments Vitals taken: Rest (in bed): BP 122/101, HR 109, SpO2 96% Sitting: BP 126/71, HR 78 After walking (sit) BP 116/77 , HR 105, SpO2 97% M6 PT-IP Treatment Start: 03/19/21 08:40 Freq: NEEDED Status: Active Protocol: Document 03/19/21 15:01 LRN (Rec: 03/19/21 15:34 LRN [id number]) Physical Therapy Treatment Exercises Exercises Short Arc Quads Education Education Provided Precautions Other Treatments Other Treatment Performed Sitting knee ext & elbow curls bilaterally, Standing Heel cord stretch bilaterally. Extra time taken for educating pt in proper stance for stretch and hold time for stretch. Educated pt in cardiac parameters to look for with exercise. Not to exceed 20 bpm over resting heart rate wtih exercise. M7 PT-IP Assessment and Plan Start: 03/19/21 08:40 Freq: NEEDED Status: Active Protocol: Document 03/19/21 15:01 LRN (Rec: 03/19/21 15:34 LRN [id number]) PT Summary Assessment and Plan Potential Rehabilitation Potential Excellent Status of Condition at Evaluation Evolving Summary Impairments Activity Tolerance Progress Towards Goals Goals Met Assessment Summary Pt is an 85 yo male, alert & oriented x 3, admitted to ED for sycope. He had finished walking to bathroom with occupational therapy prior to PT entrance, and was agreeable to participate in the evaluation after initial hesitancy. Pt was independent with transfers and shows functional mobility and strength. He showed elevated BP and HR to start in sitting, with mild increase in BP in standing after a minute. He was initially lightheaded on standing, but returned to baseline after a couple minutes. He showed decreased systolic BP and increased HR after walking. SpO2 levels were good at 96%-97%. Pt is independent and is able to tolerate functional mobility and walking distance of 100'; therefore would be safe to go home at discharge. Pt is aware of cardiac precaution of not moving while lightheaded. Because of his lightheadedness on standing supervision would be recommended on initial standing. I would recommend when stable and appropriate, a cardiac rehabilitation program to improve level of activity tolerance. Goals Bed Mobility Goal Independent Transfer Goal Independent Gait Goal Independent Gait Distance 100' Days to Meet Goals 1 Frequency of Treatment Frequency Of Treatment Discharge Recommendations To Nursing Amount of Assist Needed Independent Discharge Recommendations PT Discharge Recommendations Home Other Discharge Recommendations Cardiac rehabilitation when pt cardiac condition is stable and appropriate for cardiac rehabilitation. Equipment Needed for Home Before None Discharge Transportation Needs at Discharge Private Vehicle
--- NOTE | 2021-03-19 15:39 | CM.DPC ---
DCP/Assessment: Reviewed chart. Patient is a 85yr old male admitted to [facility] with h/o AFIB. PCP is Dr. Skinner. Primary payor is 1)Medicare 2)[facility]. Met with patient explained CM/SW role. Patient very pleasant at time of visit. Patient reports that he hopes to d/c home tomorrow. Currently ECHO and MRI pending. Patient reports that he is completely I in all ADL's and does not anticipate any d/c planning needs. Notified patient that CM team would continue to follow if needs were to arise. P: Home with family when medically stable. AMBER Patel Discharge Planning/Care Management CM Discharge Assessment Start: 03/19/21 15:37 Freq: Status: Active Protocol: Document 03/19/21 15:37 KJS (Rec: 03/19/21 15:39 KJS [id number]) Discharge Planning Assessment Assigned Quick Technician AMBER Patel Contact Information Rekha Gamboaarlane (spouse) ph# [phone] Advance Directives? Yes Advance Directives on File No History Provided By Patient,Medical Record Prior Living Arrangements House Household Members spouse Type of transporation used prior to Drives own vehicle admit Independent with ADL's Yes Is patient alert and oriented? Yes Caregiver for Another No Barriers to Discharge No Discharge Plan Home Transportation Arrangement Spouse Additional Comment CM team following Whiteboard Updated in Patient Room with Yes name and ext. # of Quick Technician Next Review Type Continued Stay Review
[2021-03-19] MEDS: ATORVASTATIN 20 MG TABLET 10 MG PO (21:45)
[2021-03-19] MEDS: SENNOSIDES 8.6 MG TABLET 17.2 MG PO (21:45)
[2021-03-20] VITALS (12 sets, daily range): BP systolic 115–159; BP diastolic 56–111; PULSE 67–124; RESP 16–18; TEMP 36.1–36.3; O2SAT 96–97
[2021-03-20] MEDS: METOPROLOL IR 25 MG TABLET PO ×2 (00:11→05:38)
[2021-03-20 05:59] LABS: BUN Creatinine Ratio 22.5 (6-22); Blood Urea Nitrogen 23 mg/dL (9-20); Calcium 8.8 mg/dL (8.4-10.2); Carbon Dioxide 23 mmol/L (22-32); Chloride 109 mmol/L (98-107); Estimated Glomerular Filt Rate > 60.0 mL/min (>60); Glucose 105 mg/dL (80-110); HEMOLYSIS < 15 (0-50); Potassium 4.1 mmol/L (3.4-5.1); Sodium 137 mmol/L (137-145)
[2021-03-20] MEDS: lisinopriL 5 MG TABLET PO (08:05)
[2021-03-20] MEDS: METOPROLOL IR 25 MG TABLET 50 MG PO (08:06)
[2021-03-20] MEDS: METOPROLOL IR 50 MG TABLET 100 MG PO (13:56)
--- NOTE | 2021-03-20 19:01 | PC.NURSE ---
Discharge Note Patient A&O, VSS, RA. No complaints of pain/discomfort. Discharge packet reviewed with patient, all questions/concerns addressed. Discharge packet, belongings and prescriptions given to patient and . PIV/Tele discontinued. Patient take down via wheelchair to POV.
--- NOTE | 2021-03-20 22:11 | P.DS_ITS ---
History of Present Illness History of Present Illness Chief complaint: Syncope Narrative: Per Linda Copeland: Patient is an 85-year-old male with history of atrial fibrillation his previous GI bleed not on anticoagulation presenting with a syncopal episode. He said that came on suddenly had a brief episode where he passed out said it was only his for a few seconds while he was laying in bed. He felt like his AFib was acting up. He is on diltiazem and atenolol for it. No head injury. He has no complaints now. He denies any dizziness lightheadedness nausea vomiting or chest discomfort. Patient reports that he has been having lightheadedness and dizziness with increasing frequency over the past several years and was seen at [place] [facility] and had an echo done on 03/14/2021. It was at this visit and that they added diltiazem and stop the lisinopril HCTZ. Currently resting in bed patient denies any symptoms at this time. He does not sense his atrial Fib, only recognizes his lightheadedness and dizziness. Patient denies chest pain, shortness of breath, nausea, vomiting, recent illness, abdominal pain, abnormal swelling of hands or feet, changes in vision, headache, weakness, numbness or tingling. 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 Patient has taken diltiazem for several years, has only taken 2 doses of atenolol, 81mgASA,simvastatin, and on very rare occasions Cialis (pt aware of the hypotensive risks with this medication. Upon admit patient was resting comfortably in bed in no distress with continuing hypertensive urgency in atrial fibrillation with RVR with a BP 138/108, 162/116, HR 110-120, RR 20, and O2 saturation 97% on room air. Patient's CBC was predominantly within normal limits with the exception of a platelet count of 146. Patient only had a mildly elevated BUN at 25, all other chemistries including a Mag were within normal limits. Troponin was negative. Patient had a mildly elevated BNP 1810. Patient's chest x-ray demonstrated no acute cardiopulmonary abnormalities. EKG demonstrated Atrial fibrillation rate [address] changes, atrial fibrillation new from previous EKG. Patient is not on any anti-platelet or anticoagulation. No significant trauma he fell to his head with brief syncopal episode lasting only seconds. At this time no need for head CT. He has no focal neurologic deficits. ED Consult with Cardiology Dr. Kwok. Concern is for ventricular arrhythmia with low EF. At this time he recommends stopping diltiazem and atenolol is starting metoprolol. Recommends metoprolol tartrate 25 mg q.i.d. titrating up into his rate is controlled less than 100 beats per minute and keeping him on the monitor. Patient admitted for atrial fibrillation with RVR and hypertensive urgency with syncope. Discharge Providers Provider Date of admission: 03/19/21 12:50 Discharge Date: 03/20/21 Primary care physician: Ayush Skinner MD Consults: 03/18/21 19:25 Consult to Occupational Therapy Evaluate & Treat Comment: Afib w/syncope Physician Instructions: Evaluate and treat Consult to Physical Therapy Evaluate & Treat Comment: Afib w/syncope Physician Instructions: Evaluate and Treat Discharge provider: Ted Cho MD Summary Hospital Course Discharge Diagnosis: 1. Atrial fibrillation with RVR 2. Hypertensive urgency 3. Syncope 4. Lightheadedness 5. Hyperlipidemia 6. History of volvulus with sigmoid colon, s/p colon resection 7. Previous GI bleeding Hospital Course: Mr. Garcia was admitted after a syncopal episode. He was found in afib with RVR. He had previously been on diltiazem and atenolol. He had a recent ECHO which showed EF 30-35%. Cardiology recommended stopping his diltiazem and atenolol and placing him on metoprolol. This was uptitrated to 100mg BID and he was discharged on this dose with a heart rate in the 90s. He had lightheadedness and MRI of brain showed no abnormalities. Discussed with patient and who did not want to start anticoagulation. 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 Status at Discharge Cognitive/behavioral status at discharge: oriented Functional status at discharge: independent ambulation Overall status at discharge: patient is progressing back to baseline Exam Vital Signs (past 8 hours): - 03/20/21 15:01 03/20/21 16:03 Pulse Rate 96 H Pulse Rate [Orthostatic Lying] 95 H Pulse Rate [Orthostatic Sitting] 88 Pulse Rate [Orthostatic Standing] 67 Blood Pressure 146/103 H Blood Pressure [Orthostatic Lying] 135/95 H Blood Pressure [Orthostatic Sitting] 140/98 H Blood Pressure [Orthostatic Standing] 139/78 Pulse Oximetry 97 Oxygen Delivery Method Room Air Oxygen Flow Rate 0 Narrative Exam Narrative: GEN: No apparent distress. PULM: clear to auscultation bilaterally CV: irregularly irregular without murmur EXT: no ankle edema Objective Labs Result Diagrams: 03/19/21 04:40 03/20/21 04:50 Labs: Laboratory Results - last 24 hr 03/20/21 04:50 Sodium 137 Potassium 4.1 Chloride 109 H Carbon Dioxide 23 BUN 23 H Creatinine 1.02 Estimated GFR > 60.0 BUN/Creatinine Ratio 22.5 H Glucose 105 Calcium 8.8 PFSH Medical History (Updated 03/18/21 @ 22:58 by VEE Oliveira) Atrial fibrillation Chronic left ventricular systolic heart failure Hyperlipidemia Hypertension, essential Volvulus of sigmoid colon Surgical History Status post colon resection Family History (Updated 03/18/21 @ 23:00 by VEE Oliveira) Mother Hypertension Blood clot in vein Father Heart attack Social History household members: spouse Smoking Status: Never smoker alcohol intake: current Discharge Plan Discharge Plan Patient Disposition: Home Provider Discharge Comment: Mr. Garcia came in after passing out. He was found to have atrial fibrillation with a fast heart rate. He was switched to metoprolol to help control his heart rate. He was started on lisinopril. Discussed with him about starting a blood thinner, but decision was made to hold for now as he has bleeding in the past. 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 Discharge orders & Medications Prescriptions: New atorvastatin [Lipitor] 20 mg Tablet 10 mg PO BEDTIME Qty: 30 RF: 0 metoprolol tartrate 50 mg Tablet 100 mg PO BID Qty: 60 RF: 0 lisinopril 5 mg Tablet 5 mg PO DAILY Qty: 30 RF: 0 Continued simvastatin 20 MG tablet 10 mg PO HS Qty: 0 RF: 0 aspirin 81 mg Tablet,Delayed Release (Dr/Ec) 81 mg PO DAILY RF: 0 Discontinued diltiazem HCl 240 mg Capsule,Extended Release 24 Hr 240 mg PO QAM RF: 0 Follow up/Referrals: Ayush Skinner MD [Primary Care Provider] - Lit Kwok MD [Physician] - (atrial fibrillation with RVR, recent ECHO with depressed EF 30-35%) Diet/Activity/Treatments Diet: Low-sodium Visit Report/Discharge Packet Instructions: DI for Atrial Fibrillation, Metoprolol Discharge Data Primary Care Provider: Ayush Skinner V Quality VTE Deep Vein Thrombosis/Pulmonary Embolism Present on Admission: No
== END 2021-03-20 18:00 | disposition home or self-care (01) | DRG 309 ==
LOC: ED 18:45 → AC 19:11
PROVIDERS: Nurse Practitioner Family; Admitting Provider Family Medicine; Emergency Provider Emergency Medicine; PCP Internal Medicine; Visit Provider Family Medicine
DX: I48.91 Unspecified atrial fibrillation (principal); I50.22 Chronic systolic (congestive) heart failure; I11.0 Hypertensive heart disease with heart failure; E78.5 Hyperlipidemia, unspecified; R55 Syncope and collapse; Z20.822 Contact with and (suspected) exposure to COVID-19
CPT/HCPCS: 36415; 70551; 71045; 80048; 80053; 82550; 82553; 83690; 83735; 83880; 84443; 84484; 85014; 85018; 85025; 87635; 93005; 94760; 96374; 97110; 97162; 97165; 97535; 99284; C9803; G0378

== ENCOUNTER 2021-12-01 02:37 | Emergency (ER) | payer MEDICARE, OTHER, SELFPAY ==
[2021-03-18 20:35] VITALS: BMI 29.5
[2021-12-01 02:48] VITALS: BP 117/64; PULSE 57; RESP 17; TEMP 36; O2SAT 93; BMI 28.8
--- NOTE | 2021-12-01 02:58 | ED.EXTPRO ---
HPI - Extremity Problem General Chief complaint: Extremity Problem,Nontraumatic Stated complaint: RIGHT LEG SWELLING/FOOT Time Seen by Provider: 12/01/21 02:40 Source: patient Mode of arrival: Ambulatory History of Present Illness HPI Narrative: 86-year-old male. Has a history of atrial fibrillation. Per his description of this it sounds like paroxysmal AFib but he does seem to have issues with palpitations frequently. He also has a history of CHF. He has been on anticoagulation in the past because of the AFib but has not been on it for almost 5 years now. He had a issue with internal bleeding that they thought was related to the Pradaxa he was taking at the time. He is currently only on an aspirin. Not on Plavix. Has not having chest pain. No shortness of breath. No recent periods of immobilization. No trauma. He is here for evaluation of swelling to his right leg and foot. He stated that yesterday he started to feel some discomfort in his right calf but did not noticed any swelling or discoloration until he took his clothes off to go to bed last night. Overnight started to have increase in discomfort. He also states that he is been having some decrease in urine output. His periods of time where he feels like he does not empty his bladder completely. Related Data Home Medications Medication Instructions Recorded Confirmed simvastatin 20 mg tablet 10 mg PO HS #0 12/21/16 03/18/21 aspirin 81 mg tablet,delayed 81 mg PO DAILY 10/30/19 03/18/21 release Previous Rx's Medication Instructions Recorded atorvastatin 20 mg tablet (Lipitor) 10 mg PO BEDTIME #30 tab 03/20/21 lisinopril 5 mg tablet 5 mg PO DAILY #30 tab 03/20/21 metoprolol tartrate 50 mg tablet 100 mg PO BID #60 tab 03/20/21 apixaban 5 mg tablet (Eliquis) 5 mg PO BID #74 tab 12/01/21 Allergies Allergy/AdvReac Type Severity Reaction Status Date / Time No Known Drug Allergies Allergy Verified 10/30/19 18:54 Review of Systems Constitutional Constitutional: Denies fever(s) Cardiovascular Cardiovascular: Denies chest pain and Denies dyspnea Respiratory Respiratory: Denies dyspnea Genitourinary Genitourinary: Reports system reviewed and no additional complaints, except as documented Musculoskeletal Musculoskeletal: Reports system reviewed and no additional complaints, except as documented and Reports as per HPI Integumentary/Breasts Comments: Redness and discoloration right lower extremity Neurologic Neurologic: Reports system reviewed and no additional complaints, except as documented Hematologic/Lymphatic On Anticoagulants: No Patient History Medical History Atrial fibrillation Chronic left ventricular systolic heart failure Hyperlipidemia Hypertension, essential Volvulus of sigmoid colon Surgical History Status post colon resection Family History (Updated 03/18/21 @ 23:00 by VEE Oliveira) Mother Hypertension Blood clot in vein Father Heart attack Social History household members: spouse Smoking Status: Never smoker alcohol intake: current Smoking Status: Never smoker alcohol intake frequency: 3 or more drinks per day Alcohol type: wine Substance Use Type: does not use Exam Initial Vital Signs Initial Vital Signs: Vital Signs Temperature 96.8 F L 12/01/21 02:48 Pulse Rate 57 L 12/01/21 02:48 Respiratory Rate 17 12/01/21 02:48 Blood Pressure 117/64 12/01/21 02:48 Pulse Oximetry 93 12/01/21 02:48 Const General: cooperative, comfortable and well developed HENSC Head: normal to inspection and normocephalic Resp Effort & Inspection: normal respiratory effort Cardio Rate: regular rate Other: Dorsalis pedis pulse 2 +bilat Capillary refill 4 seconds on the right less than 2 seconds on the left Skin Other: Increasing redness right lower extremity from Neuro General: patient alert and patient awake Sensory Exam: no sensory deficits noted Extrem Other: Patient does have circumferential swelling to the right lower extremity. It is swollen in his thigh but his most concentrated from his knee down. He does have increasing redness of the skin in this area. Course Orders Ordered: ED Orders 12/01/21 02:59 US perip venous low extrem rt Stat 12/01/21 03:00 Complete Blood Count AUTO DIFF Stat Comprehensive Metabolic Panel Stat Lipase Stat NT-proBNP (BNP-Adult 18+) Stat Partial Thromboplastin Time Stat Prothrombin Time INR Stat Discontinued Medications Apixaban (Apixaban 5 Mg Tablet) 10 mg PO NOW ONE Stop: 12/01/21 03:40 Last Admin: 12/01/21 03:53 Dose: 10 mg Documented by: LETICIA Vital Signs Vital signs: Vital Signs - 8 hr 12/01/21 02:48 Temperature 96.8 F L Pulse Rate 57 L Respiratory Rate 17 Blood Pressure 117/64 Pulse Oximetry 93 MDM - Extremity (Nontraumatic) Lab Data Result diagrams: 12/01/21 03:00 12/01/21 03:00 Labs: Lab Results 12/01/21 12/01/21 12/01/21 Range/Units 03:00 03:00 03:00 WBC 7.8 (4.5-11.0) X10^3/uL RBC 4.68 (4.5-5.9) X10^6/uL Hgb 15.2 (13.5-17.5) g/dL Hct 45.3 (41-53) % MCV 96.7 (80-100) fL MCH 32.5 (26-34) PG MCHC 33.6 (30-36) % RDW 13.9 (11.6-14.8) % Plt Count 121 L (150-400) X10^3/uL Neut % (Auto) 72.1 (50-75) % Lymph % (Auto) 17.7 L (25-40) % [place] % (Auto) 8.5 (3-14) % Eos % (Auto) 1.3 L (2-4) % Baso % (Auto) 0.4 (0-2) % Neut # (Auto) 5600 (3384-8034) /uL Lymph # (Auto) 1400 (4581-8837) /uL [place] # (Auto) 700 (0-900) /uL Eos # (Auto) 100 (0-450) /uL Baso # (Auto) 0 (0-100) /uL PT 12.3 (10.1-12.7) SECONDS INR 1.1 (0.9-1.3) APTT 29 (26.4-36.2) SECONDS Sodium 137 (137-145) mmol/L Potassium 4.6 (3.4-5.1) mmol/L Chloride 110 H (98-107) mmol/L Carbon Dioxide 21 L (22-32) mmol/L BUN 46 H (9-20) mg/dL Creatinine 1.31 H (0.66-1.25) mg/dL Estimated GFR 51.9 L (>60) mL/min BUN/Creatinine Ratio 35.1 H (6-22) Glucose 112 H (80-110) mg/dL Calcium 9.2 (8.4-10.2) mg/dL Total Bilirubin 0.9 (0.2-1.3) mg/dL AST 25 (17-59) IU/L ALT 18 (<50) IU/L Alkaline Phosphatase 51 (38-126) U/L NT-Pro-B Natriuret Pep 1960 H (<450) pg/mL Total Protein 7.4 (6.3-8.2) g/dL Albumin 4.2 (3.5-5.0) g/dL Globulin 3.2 (1.7-4.1) g/dL Albumin/Globulin Ratio 1.3 (1.0-2.8) Lipase 71 (23-300) U/L Imaging Data US - DVT: Radiologist's Impression: Occlusive thrombus within the right lower extremity MDM Narrative Medical decision making narrative: Does have increased redness to his right lower extremity but in my opinion does not correspond with Phlegmasia cerulea dolens. His dorsalis pedis is easily felt and is equal bilateral. He does have decreased capillary refill on the right compared to the left. He has swelling on the right. Ultrasound consistent with DVT. Unsure the exact etiology. He does not have any history of trauma nor any prolonged immobilizations. He has no chest pain. No shortness of breath. Low suspicion for pulmonary embolism. He has been on anticoagulation in the past but this is because of atrial fibrillation. He has had issues with this. He had intra-abdominal bleeding that was attributed to the Pradaxa that he was on. He has not been on any anticoagulation in a little over 5 years. We did discuss his diagnosis today. We did discuss the treatment with anticoagulation. We discussed the risks and benefits to include bleeding verses concern for pulmonary embolism. After this discussion he opted to start anticoagulation. He was given a dose of Eliquis here in the ER and will send home with a prescription for the remainder. He was instructed to contact his primary doctor for a follow-up. He was given strict return precautions. He expressed understanding and agreement. I did consider other etiologies such as cellulitis however his exam is not consistent with that. No indication for x-rays. His bladder scan shows 30 cc of urine in the bladder. He states that his urinary symptoms been causing him issues recently. I feel that we can hold on further workup for that during this ED visit he will follow-up with his primary doctor. Discharge Plan Departure Patient Disposition: Home Clinical Impression: Deep vein thrombosis of lower extremity Instructions: DI for Deep Vein Thrombosis Activity Restrictions/Additional Instructions: Recommend that you continue to take all her medications as directed except you can stop the aspirin. We will place you on Eliquis. This medication does have a dosage change after 7 days of therapy. You do need to follow-up with your primary doctor. I do recommend keeping your leg elevated and also use compression stockings. If you develops chest pain or shortness of breath or if you start to have worsening swelling or pain or worsening discoloration of your right leg please return for further evaluation. Prescriptions: New Eliquis 5 mg tablet 5 mg PO BID Qty: 74 0RF Rx Instructions: 2T PO BID for 7 days then 1T PO BID after No Action simvastatin 20 MG tablet 10 mg PO HS Qty: 0 0RF aspirin 81 mg Tablet,Delayed Release (Dr/Ec) 81 mg PO DAILY 0RF atorvastatin [Lipitor] 20 mg Tablet 10 mg PO BEDTIME Qty: 30 0RF metoprolol tartrate 50 mg Tablet 100 mg PO BID Qty: 60 0RF lisinopril 5 mg Tablet 5 mg PO DAILY Qty: 30 0RF Referrals: Ayush Skinner MD [Primary Care Provider] -
--- NOTE | 2021-12-01 02:59 | DI.US.S_ITS ---
PROCEDURE: US PERIPH VENOUS LOW EXTREM RT INDICATIONS: EVAL FOR DVT TECHNIQUE: Real-time imaging, as well as color and pulse Doppler interrogation, were performed of the lower extremity deep veins from the inguinal ligament to the popliteal fossa. COMPARISON: None. FINDINGS: Extensive occlusive right lower extremity deep venous thrombosis seen, with screw seen through the right femoral vein and the popliteal vein. The right common femoral vein is patent. IMPRESSION: Extensive right lower extremity deep venous thrombosis. Note: Concordant preliminary findings given by the rn eligibility upon the completion of the examination to Dr. Mathew at 3:27 a.m. on December 01, 2021. Note: No significant discrepancy from the preliminary report. Dictated by: Yaya Steinberg M.D. on 12/01/2021 at 6:52 Approved by: Yaya Steinberg M.D. on 12/01/2021 at 6:53
[2021-12-01 03:11] LABS: Add Manual Diff / Slide Review NO; Basophils Absolute Auto 0 /uL (0-100); Basophils Percent Auto 0.4 % (0-2); Eosinophils Absolute Auto 100 /uL (0-450); Eosinophils Percent Auto 1.3 % (2-4); Hematocrit 45.3 % (41-53); Hemoglobin 15.2 g/dL (13.5-17.5); Lymphocytes Absolute Auto 1400 /uL (1100-4500); Lymphocytes Percent Auto 17.7 % (25-40); Mean Corpuscular HGB Conc 33.6 % (30-36); Mean Corpuscular Hemoglobin 32.5 PG (26-34); Mean Corpuscular Volume 96.7 fL (80-100); Monocytes Absolute Auto 700 /uL (0-900); Monocytes Percent Auto 8.5 % (3-14); Neutrophils Absolute Auto 5600 /uL (1500-7000); Neutrophils Percent Auto 72.1 % (50-75); Platelet Count 121 X10^3/uL (150-400); Red Blood Cell Count 4.68 X10^6/uL (4.5-5.9); Red Cell Distribution Width 13.9 % (11.6-14.8); White Blood Cell Count 7.8 X10^3/uL (4.5-11.0)
[2021-12-01 03:22] LABS: INR 1.1 (0.9-1.3); Prothrombin Time 12.3 SECONDS (10.1-12.7)
[2021-12-01 03:24] LABS: PTT Partial Thromboplastin Tim 29 SECONDS (26.4-36.2)
[2021-12-01 03:26] LABS: Alanine Aminotransferase 18 IU/L (<50); Albumin 4.2 g/dL (3.5-5.0); Albumin Globulin Ratio 1.3 (1.0-2.8); Alkaline Phosphatase 51 U/L (38-126); Aspartate Aminotransferase 25 IU/L (17-59); BUN Creatinine Ratio 35.1 (6-22); Bilirubin Total 0.9 mg/dL (0.2-1.3); Blood Urea Nitrogen 46 mg/dL (9-20); Calcium 9.2 mg/dL (8.4-10.2); Carbon Dioxide 21 mmol/L (22-32); Chloride 110 mmol/L (98-107); Estimated Glomerular Filt Rate 51.9 mL/min (>60); Globulin 3.2 g/dL (1.7-4.1); Glucose 112 mg/dL (80-110); HEMOLYSIS 30 (0-50); Lipase 71 U/L (23-300); Potassium 4.6 mmol/L (3.4-5.1); Sodium 137 mmol/L (137-145); Total Protein 7.4 g/dL (6.3-8.2)
[2021-12-01 03:35] LABS: NT-proBNP (BNP-Adult 18+) 1960 pg/mL (<450)
[2021-12-01] MEDS: APIXABAN 5 MG TABLET 10 MG PO (03:53)
== END 2021-12-01 05:02 | disposition home or self-care (01) ==
PROVIDERS: Emergency Provider Emergency Medicine; PCP Internal Medicine
DX: I82.491 Acute embolism and thrombosis of other specified deep vein of right lower extremity (principal)
CPT/HCPCS: 36415; 51798; 80053; 83690; 83880; 85025; 85610; 85730; 93971; 99284

== ENCOUNTER → 2021-12-24 10:46 | Outpatient (CLI) | payer MEDICARE, OTHER, SELFPAY ==
[2021-03-18 20:35] VITALS: BMI 29.5
[2021-12-24 12:05] LABS: BUN Creatinine Ratio 23.3 (6-22); Blood Urea Nitrogen 30 mg/dL (9-20); Carbon Dioxide 27 mmol/L (22-32); Chloride 106 mmol/L (98-107); Estimated Glomerular Filt Rate 52.8 mL/min (>60); Glucose 119 mg/dL (80-110); HEMOLYSIS < 15 (0-50); Potassium 5.1 mmol/L (3.4-5.1); Sodium 140 mmol/L (137-145)
== END ==
PROVIDERS: PCP Internal Medicine; Referring Provider Internal Medicine; Visit Provider Internal Medicine
DX: I48.91 Unspecified atrial fibrillation (principal)
CPT/HCPCS: 36415; 80048

== ENCOUNTER 2022-01-12 15:48 | Emergency (ER) | payer MEDICARE, OTHER, SELFPAY ==
[2021-03-18 20:35] VITALS: BMI 29.5
[2022-01-12 15:50] VITALS: BP 134/77; PULSE 61; RESP 15; TEMP 35.9; O2SAT 97; BMI 29.0
[2022-01-12 15:52] VITALS: BP 134/77; PULSE 61; O2SAT 96
[2022-01-12 16:00] VITALS: PULSE 64; O2SAT 96
[2022-01-12] MEDS: OXYMETAZOLINE NASAL SPRAY 15 ML 2 SPRAYS NASAL (16:09)
--- NOTE | 2022-01-12 16:38 | ED_ITS ---
HPI - Epistaxis <JUANY Arango - Last Filed: 01/12/22 17:59> General Chief complaint: Nasal Problem Stated complaint: bloody nose x1hr, on eliquis Time Seen by Provider: 01/12/22 15:50 Source: patient Mode of arrival: Ambulatory History of Present Illness HPI Narrative: This is a 86-year-old male who is on Eliquis for a right leg DVT, history of chronic AFib, left ventricular systolic heart failure, and history of spontaneous abdominal hemorrhage when on Xarelto Who presents to the emergency department for left-sided epistaxis which started approximately 1 hour prior to arrival. Patient states that he stood up, without any trauma he started bleeding from his left nare. He states that he has been doing nasal rinses for congestion recently and thought it might be more forceful than it should be And a possible cause to his nosebleed today. He states that his blood pressure has been under control, he was concerned because he had a spontaneous hemorrhage in the past when he was on Xarelto. He has never had a nosebleed before, he has been clamping his nose since it was bleeding and has not had further bleeding since. He denies sensation of blood running down his throat or nausea or vomit ing. He denies any trauma other than the nasal rinses. Related Data Home Medications Medication Instructions Recorded Confirmed simvastatin 20 mg tablet 10 mg PO HS #0 12/21/16 12/24/21 metoprolol tartrate 50 mg tablet 50 mg PO BID tab 12/24/21 tadalafil 20 mg tablet (Cialis) 20 mg PO DAILY PRN 12/24/21 12/24/21 Previous Rx's Medication Instructions Recorded apixaban 5 mg tablet (Eliquis) 5 mg PO BID #60 tab 12/24/21 lisinopril 5 mg tablet 10 mg PO DAILY #60 tab 12/24/21 Allergies Allergy/AdvReac Type Severity Reaction Status Date / Time No Known Drug Allergies Allergy Verified 01/12/22 15:55 Review of Systems <JUANY Arango - Last Filed: 01/12/22 17:59> Review of Systems Narrative: General: denies fever, chills, malaise, sweats, fatigue Head/Neck: denies headache, neck pain, dizziness Eyes: denies visual changes, eye pain Nose: bleeding from left naris started approximately 1 hour prior to arrival, no bleeding from right naris a denies any sinus tenderness Cardio: denies chest pain, palpitations, edema Respiratory: denies dyspnea, cough, orthopnea GI: denies abdominal pain, nausea, vomiting, or diarrhea : denies dysuria, hematuria, urinary retention, frequency or incontinence MSK: denies joint pain, muscle weakness Skin: denies rash, itching, skin lesions or other Neuro: denies numbness, tingling Patient History <JUANY Arango - Last Filed: 01/12/22 17:59> Medical History Atrial fibrillation Chronic anticoagulation Chronic atrial fibrillation Chronic left ventricular systolic heart failure Hyperlipidemia Hypertension, essential Mixed hyperlipidemia Right leg DVT Volvulus of sigmoid colon Surgical History Status post colon resection Family History Mother Hypertension Blood clot in vein Father Heart attack Social History household members: spouse Smoking Status: Never smoker alcohol intake: current Smoking Status: Never smoker alcohol intake frequency: 3 or more drinks per day Alcohol type: wine Substance Use Type: does not use Exam <JUANY Arango - Last Filed: 01/12/22 17:59> Narrative Exam Narrative: Independently reviewed vitals signs and nursing notes. General: cooperative, comfortable, in no acute distress, well developed and well groomed Head: atraumatic, symmetrical facial expressions Neck: supple, atraumatic, without lymphadenopathy. Eyes: pupils equal round and reactive, EOMI, conjunctiva normal Nose: nares patent, no rhinorrhea, clamp removed without bleeding, instructed patient to blow his nose, no large clots came out, no clots visible in the posterior region or in other areas, no active bleeding in the anterior Kiesselbach's plexus visible, Afrin sprayed left Nare, all clot and nasal drainage removed and there is no further bleeding, instructed patient how to treat this at home if it recurs. Thorough inspection anterior Kiesselbach plexus and septal area for any active bleed to cauterize and there is no active bleeding currently. Did not use silver nitrate Mouth/Throat: uvula midline, moist mucus membranes Cardiovascular: regular rate and rhythm, no peripheral edema, warm extremities Respiratory: normal effort, able to speak in complete sentences, no audible wheezing, stridor, or rales. No retractions or tachypnea. GI: abdomen soft, nontender to palpation, nondistended, no masses, no exquisite tenderness with exam, without guarding or rebound. MSK: moves all extremities, ambulatory w/steady gait, neurovascularly intact, no weakness Skin: brisk capillary refill, no rash, no erythema Neuro: normal speech and cognition, A&O x3, normal tone Psych: mental status is grossly normal, congruent mood, normal affect, pleasant and cooperative Initial Vital Signs Initial Vital Signs: Vital Signs Temperature 96.6 F L 01/12/22 15:50 Pulse Rate 61 01/12/22 15:50 Respiratory Rate 15 01/12/22 15:50 Blood Pressure 134/77 01/12/22 15:50 Pulse Oximetry 97 01/12/22 15:50 <Zeferino Mathew DO - Last Filed: 01/13/22 07:03> Initial Vital Signs Initial Vital Signs: Vital Signs Temperature 96.6 F L 01/12/22 15:50 Pulse Rate 61 01/12/22 15:50 Respiratory Rate 15 01/12/22 15:50 Blood Pressure 134/77 01/12/22 15:50 Pulse Oximetry 97 01/12/22 15:50 Procedures <JUANY Arango - Last Filed: 01/12/22 17:59> Epistaxis Control Time Out Performed: Yes Nostril: left Nose Prepped With: phenylephrine Direct Inspection: yes and unable to visualize Clots Removed by: blowing nose and manually Cautery Used: none Patient Tolerated Procedure: well and no complications Course <JUANY Arango - Last Filed: 01/12/22 17:59> Orders Ordered: Discontinued Medications Oxymetazoline HCl (Oxymetazoline Nasal [place] 15 Ml) 2 sprays NASAL NOW ONE Stop: 01/12/22 15:51 Last Admin: 01/12/22 16:09 Dose: 2 sprays Documented by: SHERIN Silver Nitrate/Potassium Nitrate (Silver Nitrate Stick) 1 each TOP NOW ONE Stop: 01/12/22 15:51 Last Admin: 01/12/22 16:24 Dose: Not Given Documented by: SHERIN Vital Signs Vital signs: Vital Signs - 8 hr 01/12/22 15:50 01/12/22 15:52 01/12/22 16:00 Temperature 96.6 F L Pulse Rate 61 61 64 Respiratory Rate 15 Blood Pressure 134/77 134/77 Pulse Oximetry 97 96 96 <Zeferino Mathew DO - Last Filed: 01/13/22 07:03> Orders Ordered: Discontinued Medications Oxymetazoline HCl (Oxymetazoline Nasal [place] 15 Ml) 2 sprays NASAL NOW ONE Stop: 01/12/22 15:51 Last Admin: 01/12/22 16:09 Dose: 2 sprays Documented by: SHERIN Silver Nitrate/Potassium Nitrate (Silver Nitrate Stick) 1 each TOP NOW ONE Stop: 01/12/22 15:51 Last Admin: 01/12/22 16:24 Dose: Not Given Documented by: SHERIN Vital Signs Vital signs: Vital Signs - 8 hr 01/12/22 15:50 01/12/22 15:52 01/12/22 16:00 Temperature 96.6 F L Pulse Rate 61 61 64 Respiratory Rate 15 Blood Pressure 134/77 134/77 Pulse Oximetry 97 96 96 MDM - Epistaxis <JUANY Arango - Last Filed: 01/12/22 17:59> [facility] Narrative Medical decision making narrative: this is a pleasant 86-year-old male who presents to the emergency department for left naris epistaxis which started approximately 1 hour prior to arrival. patient is anticoagulated on apixaban currently for chronic AFib with an acute DVT in his right lower extremity. Patient denies any trauma, states he has been using nasal saline rinses for some congestion recently and this is likely what irritated his nasal mucosa causing the bleed today. On visual exam after approximately 30 minutes to 1 hour of clamping patient did not have any active bleeding, and he blew out all the clots, visual inspection, manually removed some clots, no bleeding in the Kiesselbach plexus in the anterior aspect of his narrow, no active posterior bleed down his throat after repeat exam. Afrin was sprayed in his left naris x2, patient was discharged home with a nasal clamp, Afrin, instructed how to use and clamp at home If this happens again. Patient has a history of a spontaneous intra-abdominal hemorrhage while on anticoagulants, this was concerning to him. Patient was given referral to Dr. Lopez with ENT for follow-up, he was instructed on how to manage this at home and given strict return precautions for difficult to control epistaxis at home. Patient is appropriate and amenable to discharge home. Vital signs are stable on repeat examination is unremarkable. Patient has been informed of results. Patient has been given strict return to ER precautions for any new or worsening symptoms. Patient understands to follow up closely with outpatient providers as instructed. Patient understands plan and agrees to discharge home. All questions and concerns answered at this time. Discharge Plan Departure Patient Disposition: Home Clinical Impression: Epistaxis Instructions: Nosebleed Activity Restrictions/Additional Instructions: *You have been diagnosed with A left-sided nose bleed / epistaxis. Most nose bleeds will stop with saturation with Afrin and proper use of the nasal clamp over the widest part of the nose. This will often. The bleeding without further intervention. Please use this as your plan if this happens again. On Friday you can call make an appointment with Dr. Lopez for evaluation. If you have another heavy bleed from your nose, please return to the emergency department we will re-evaluate how to best stop the bleeding. if you have had frequent nasal rinses or they were forceful, the tissue may be friable/ fragile and will bleed easier. Please use caution, and avoid for the next few days to allow this to heal. If you are having allergy symptoms, you may use Flonase nasal spray twice a day for 2 weeks at a time or take Claritin or Zyrtec. Thank you for trusting us with your care, it was a pleasure to meet you, I hope that we do not see you later. It is safe to use multiple sprays in both nares for an episode of bleeding. *What to do: *Please continue to take your regular medications as directed. [ ] New medication prescriptions sent to your pharmacy: [ ] [ ] New medication written as a paper prescription [ x] No new medications given *Please follow up with your primary care provider in 2-3 days, call for an appointment. Let them know you were seen in the Emergency Department and that we asked that you be seen for follow-up. We will electronically transmit a record of today's note if your PCP is in our system *If you do not have a primary care provider please contact [phone] to establish care with one of the [facility] primary care providers. *Return to Emergency Department if you should have any new, worsening or concerning symptoms, such as [fever greater than 101F, chills, worsening pain, persistent vomiting or other bothersome symptoms] Prescriptions: No Action simvastatin 20 MG tablet 10 mg PO HS Qty: 0 0RF metoprolol tartrate 50 mg tablet 50 mg PO BID 0RF Rx Instructions: 1 tablet in morning and 2 tablets at night. tadalafil [Cialis] 20 mg tablet 20 mg PO DAILY PRN0RF Rx Instructions: administer approximately 30min before sexual activity; do not use more than 1 dose per 24hrs Eliquis 5 mg tablet 5 mg PO BID Qty: 60 11RF lisinopril 5 mg tablet 10 mg PO DAILY Qty: 60 11RF Referrals: Gurwinder Lopez MD [Physician] - 3-5 days Ayush Skinner MD [Primary Care Provider] - <Zeferino Mathew DO - Last Filed: 01/13/22 07:03> [facility] Dr Mathew Co-Sign Statement: I was available for consultation during this patient's emergency department visit. This chart is signed by myself for administrative purposes only. I did not have direct contact with this patient during this visit. They were seen independently by the APC.
== END 2022-01-12 16:37 | disposition home or self-care (01) ==
PROVIDERS: Emergency Provider Nurse Practitioner Critical Care Medicine; PCP Internal Medicine
DX: R04.0 Epistaxis (principal); Z79.01 Long term (current) use of anticoagulants
CPT/HCPCS: 99282; 99283; A9270

== ENCOUNTER 2022-01-19 12:05 | Emergency (ER) | payer MEDICARE, OTHER, SELFPAY ==
[2021-03-18 20:35] VITALS: BMI 29.5
[2022-01-19 12:35] VITALS: BP 163/103; PULSE 59; RESP 16; TEMP 35.8; O2SAT 97; BMI 29.0
--- NOTE | 2022-01-19 12:42 | ED_ITS ---
HPI - Epistaxis General Chief complaint: Nasal Problem Stated complaint: bloody nose last hour and half Time Seen by Provider: 01/19/22 12:17 Source: patient and family Mode of arrival: Ambulatory History of Present Illness HPI Narrative: 86-year-old nonsmoker with history of hypertension, hyperlipidemia, chronic AFib on Eliquis presents for evaluation of a slight left-sided nose bleed. He denies any trauma or injury and states that he developed a small to moderate amount of painless bleeding from his left nostril earlier today. He was unable to control it with pressure or Afrin and presents for evaluation. He denies dizziness, w eakness lightheadedness. He has no chest pain or shortness of breath. He does not feel a dripping down the back of his throat. He was here about 1 week ago under relatively similar circumstances but states that episode was significantly more intense. He had a thorough evaluation and bleeding was controlled without significant intervention. He was encouraged to follow-up with ear nose and thro at but given his symptoms had resolved he had chosen not to. Related Data Home Medications Medication Instructions Recorded Confirmed simvastatin 20 mg tablet 10 mg PO HS #0 12/21/16 12/24/21 metoprolol tartrate 50 mg tablet 50 mg PO BID tab 12/24/21 tadalafil 20 mg tablet (Cialis) 20 mg PO DAILY PRN 12/24/21 12/24/21 Previous Rx's Medication Instructions Recorded apixaban 5 mg tablet (Eliquis) 5 mg PO BID #60 tab 12/24/21 lisinopril 5 mg tablet 10 mg PO DAILY #60 tab 12/24/21 Allergies Allergy/AdvReac Type Severity Reaction Status Date / Time No Known Drug Allergies Allergy Verified 01/12/22 15:55 Review of Systems Review of Systems Narrative: GENERAL: Denies chills, fatigue, malaise, fever, sweats. HEENT: see HPI RESPIRATORY: Denies dyspnea, cough, wheezing, hemoptysis, sputum. CARDIOVASCULAR: Denies chest pain, palpitations, orthopnea, edema, GASTROINTESTINAL: Denies nausea, vomiting, abdominal pain, diarrhea, constipation, melena. : Denies dysuria, frequency, incontinence, hematuria, urinary retention. MUSCULOSKELETAL: denies weakness, joint pain, or bony pain SKIN: Denies rash, skin lesions, or other NEUROLOGIC: Denies weakness, headache, numbness, change in speech, confusion, seizures, incoordination. PSYCHIATRIC: No concerning psychosocial issues. 12 point review of systems is negative except for those stated above Patient History Medical History Atrial fibrillation Chronic anticoagulation Chronic atrial fibrillation Chronic left ventricular systolic heart failure Hyperlipidemia Hypertension, essential Mixed hyperlipidemia Right leg DVT Volvulus of sigmoid colon Surgical History Status post colon resection Family History Mother Hypertension Blood clot in vein Father Heart attack Social History household members: spouse Smoking Status: Never smoker alcohol intake: current Smoking Status: Never smoker alcohol intake frequency: 3 or more drinks per day Alcohol type: wine Substance Use Type: does not use Exam Narrative Exam Narrative: GENERAL: [86] year old patient appears stated age. Well-developed patient, in mild distress. HEAD: Atraumatic. Normocephalic. EYES: Pupils equal round and reactive. Extraocular motions intact. No scleral icterus. No injection or drainage. ENT: Fresh clots but no active bleeding from left nostril. NO obvious source visualized. Throat without erythema, tonsillar hypertrophy or exudate. Airway patent. NECK: Trachea midline. Non tender CARDIOVASCULAR: Regular rate and rhythm without murmurs, gallops, or rubs. RESPIRATORY: Clear to auscultation. Breath sounds equal bilaterally. No wheezes, rales, or rhonchi. GASTROINTESTINAL: Abdomen soft, non-tender, nondistended. EXTREMITIES: No edema or joint tenderness. BACK: Nontender without deformity or crepitance. No flank tenderness. NEURO: AOx3. SKIN: No rash or erythema of visible areas Initial Vital Signs Initial Vital Signs: Vital Signs Temperature 96.5 F L 01/19/22 12:35 Pulse Rate 59 L 01/19/22 12:35 Respiratory Rate 16 01/19/22 12:35 Blood Pressure 163/103 H 01/19/22 12:35 Pulse Oximetry 97 01/19/22 12:35 Procedures Epistaxis Control Time Out Performed: Yes Nostril: left Nose Prepped With: oxymetazoline Direct Inspection: yes Clots Removed by: blowing nose and suction Cautery Used: none Course Course Course Narrative: bleeding had stopped prior to arrival. 15 minute trial of clamp with afrin and re-evaluation demonstrates no ongoing bleeding. Observed another 15 minutes with clamp and gauze removed. No bleeding. Patient ambulated through department with no bleeding. No source identified to cauterize. Low suspicion for posterior bleed given minimal blood, no active bleeding. No indication for rhino rocket or other. Extensive return precautions given, encouraged to follow closely with ENT, questions answered to his apparent satisfaction Orders Ordered: Discontinued Medications Oxymetazoline HCl (Oxymetazoline Nasal [place] 15 Ml) 2 sprays NASAL NOW ONE Stop: 01/19/22 12:18 Last Admin: 01/19/22 12:51 Dose: 2 sprays Documented by: DEVIN Vital Signs Vital signs: Vital Signs - 8 hr 01/19/22 12:35 Temperature 96.5 F L Pulse Rate 59 L Respiratory Rate 16 Blood Pressure 163/103 H Pulse Oximetry 97 Discharge Plan Departure Patient Disposition: Home Clinical Impression: Acute anterior epistaxis Instructions: DI for Nosebleed Activity Restrictions/Additional Instructions: *You have been diagnosed with [ acute anterior epistaxis ] *What to do: * do not blow your nose, stick your finger in her nose, or disturb nose for the next 24 hr. If you must sneeze please sneeze out your mouth like we talked about *Follow up with your primary care provider or ENT doctor in 2-3 days, call for an appointment. Let them know you were seen in the Emergency Department and that we ask that you be seen in follow up *Return to ER if you should have any new, worsening or concerning symptoms * if you are bleeding starts again at home please place a portion of a cotton ball in your nostril and squirt some of the Afrin you were given in your nose. Apply the nose clamp and uses a watch or o'clock to time yourself for 15 min. At the end 15 min recheck for bleeding, if you continue to bleed please repeat the process for another 15 min. If at the end of 30 min you still have bleeding you should return to the emergency department Prescriptions: No Action simvastatin 20 MG tablet 10 mg PO HS Qty: 0 0RF metoprolol tartrate 50 mg tablet 50 mg PO BID 0RF Rx Instructions: 1 tablet in morning and 2 tablets at night. tadalafil [Cialis] 20 mg tablet 20 mg PO DAILY PRN0RF Rx Instructions: administer approximately 30min before sexual activity; do not use more than 1 dose per 24hrs Eliquis 5 mg tablet 5 mg PO BID Qty: 60 11RF lisinopril 5 mg tablet 10 mg PO DAILY Qty: 60 11RF Referrals: Gurwinder Lopez MD [Physician] - Ayush Skinner MD [Primary Care Provider] -
[2022-01-19] MEDS: OXYMETAZOLINE NASAL SPRAY 15 ML 2 SPRAYS NASAL (12:51)
--- NOTE | 2022-01-19 12:52 | PC.NURSE ---
nasal spray cotton pack placed left nare by
[2022-01-19 14:34] VITALS: BP 176/84; PULSE 59; RESP 16; O2SAT 97
== END 2022-01-19 14:35 | disposition home or self-care (01) ==
PROVIDERS: Emergency Provider Emergency Medicine; PCP Internal Medicine
DX: R04.0 Epistaxis (principal)
CPT/HCPCS: 99282; A9270

== ENCOUNTER 2022-03-27 13:10 | Emergency (ER) | payer MEDICARE, OTHER, SELFPAY ==
[2021-03-18 20:35] VITALS: BMI 29.5
[2022-03-27] VITALS (111 sets, daily range): BP systolic 113–226; BP diastolic 65–136; PULSE 42–75; RESP 12–25; TEMP 36; O2SAT 95–98; BMI 29.0
--- NOTE | 2022-03-27 13:27 | DI.RAD.S_ITS ---
PROCEDURE: XR CHEST 1V INDICATIONS: chest pain TECHNIQUE: One view of the chest was acquired. COMPARISON: [facility], GIO, CHEST 1 VIEW, 12/21/2016, 15:34. [facility], GIO, XR CHEST 1V, 03/18/2021, 14:41. FINDINGS: Surgical changes and devices: None. Lungs and pleura: Lungs are clear. No pleural effusions or pneumothorax. Mediastinum: Mediastinal contours appear normal. Heart size is stable. Aortic atherosclerotic calcifications are present. Bones and chest wall: No suspicious bony lesions. Overlying soft tissues appear unremarkable. IMPRESSION: No acute cardiopulmonary abnormality. Dictated by: Mark Epstein M.D. on 03/27/2022 at 14:08 Approved by: Mark Epstein M.D. on 03/27/2022 at 14:10
[2022-03-27 13:51] LABS: Add Manual Diff / Slide Review NO; Basophils Absolute Auto 0 /uL (0-100); Basophils Percent Auto 0.4 % (0-2); Eosinophils Absolute Auto 0 /uL (0-450); Eosinophils Percent Auto 0.6 % (2-4); Hematocrit 44.9 % (41-53); Hemoglobin 15.4 g/dL (13.5-17.5); Lymphocytes Absolute Auto 900 /uL (1100-4500); Lymphocytes Percent Auto 14.4 % (25-40); Mean Corpuscular HGB Conc 34.3 % (30-36); Mean Corpuscular Hemoglobin 34.2 PG (26-34); Mean Corpuscular Volume 99.7 fL (80-100); Monocytes Absolute Auto 600 /uL (0-900); Monocytes Percent Auto 9.9 % (3-14); Neutrophils Absolute Auto 4600 /uL (1500-7000); Neutrophils Percent Auto 74.7 % (50-75); Platelet Count 131 X10^3/uL (150-400); Red Blood Cell Count 4.51 X10^6/uL (4.5-5.9); Red Cell Distribution Width 13.9 % (11.6-14.8); White Blood Cell Count 6.1 X10^3/uL (4.5-11.0)
[2022-03-27 13:55] LABS: INR 1.3 (0.9-1.3); Prothrombin Time 15.1 SECONDS (10.1-12.7)
[2022-03-27 13:58] LABS: PTT Partial Thromboplastin Tim 31 SECONDS (26.4-36.2)
--- NOTE | 2022-03-27 14:01 | ED.SYNCOPE ---
HPI - Syncope <Fredo Fatima DO - Last Filed: 03/28/22 16:01> General Chief Complaint: Syncope Stated Complaint: Passed out- high BP Time Seen by Provider: 03/27/22 14:00 Source: patient Mode of arrival: Ambulatory Limitations: no limitations History of Present Illness HPI narrative: 86-year-old male nonsmoker with history of hypertension, AFib on anticoagulation presents for evaluation of a syncopal episode just prior to arrival. His syncopal episode happened while he was just sitting there, not with change in position, not while on the toilet and did not result in any injury. He denies any vomiting or diarrhea and has had no dark stools. He denies any change in his medications and states that he has been taking his current regimen of metoprolol for many months if not longer. He is chronically in atrial fibrillation his heart rate is usually around 60 Related Data Home Medications Medication Instructions Recorded Confirmed simvastatin 20 mg tablet 10 mg PO HS ##0 12/21/16 12/24/21 metoprolol tartrate 50 mg tablet 50 mg PO BID 12/24/21 tadalafil 20 mg tablet (Cialis) 20 mg PO DAILY PRN 12/24/21 12/24/21 Previous Rx's Medication Instructions Recorded apixaban 5 mg tablet (Eliquis) 5 mg PO BID #60 tabs 12/24/21 lisinopril 5 mg tablet 10 mg PO DAILY #60 tabs 12/24/21 Allergies Allergy/AdvReac Type Severity Reaction Status Date / Time No Known Drug Allergies Allergy Verified 03/27/22 13:19 Review of Systems <DO Eladio Dow Last Filed: 03/28/22 16:01> Review of Systems Narrative: GENERAL: Denies chills, fatigue, malaise, fever, sweats. HEENT: Denies sinus pain, ear pain, sore throat, difficulty swallowing, dizziness. RESPIRATORY: Denies dyspnea, cough, wheezing, hemoptysis, sputum. CARDIOVASCULAR: See HPI GASTROINTESTINAL: Denies nausea, vomiting, abdominal pain, diarrhea, constipation, melena. : Denies dysuria, frequency, incontinence, hematuria, urinary retention. MUSCULOSKELETAL: denies weakness, joint pain, or bony pain SKIN: Denies rash, skin lesions, or other NEUROLOGIC: Denies weakness, headache, numbness, change in speech, confusion, seizures, incoordination. PSYCHIATRIC: No concerning psychosocial issues. 12 point review of systems is negative except for those stated above Patient History <Fredo Fatima DO - Last Filed: 03/28/22 16:01> Medical History Atrial fibrillation Chronic anticoagulation Chronic atrial fibrillation Chronic left ventricular systolic heart failure Hyperlipidemia Hypertension, essential Mixed hyperlipidemia Right leg DVT Volvulus of sigmoid colon Surgical History Status post colon resection Family History Mother Hypertension Blood clot in vein Father Heart attack Social History household members: spouse Smoking Status: Never smoker alcohol intake: current Smoking Status: Never smoker alcohol intake frequency: 3 or more drinks per day Alcohol type: wine Substance Use Type: does not use Exam <Fredo Fatima DO - Last Filed: 03/28/22 16:01> Narrative Exam Narrative: GENERAL: [86] year old patient appears stated age. Well-developed patient, in mild distress. HEAD: Atraumatic. Normocephalic. EYES: Pupils equal round and reactive. Extraocular motions intact. No scleral icterus. No injection or drainage. ENT: Nose without bleeding, purulent drainage. Throat without erythema, tonsillar hypertrophy or exudate. Airway patent. NECK: Trachea midline. Non tender CARDIOVASCULAR: Slow and irregular rhythm without murmurs, gallops, or rubs. RESPIRATORY: Clear to auscultation. Breath sounds equal bilaterally. No wheezes, rales, or rhonchi. GASTROINTESTINAL: Abdomen soft, non-tender, nondistended. EXTREMITIES: No edema or joint tenderness. BACK: Nontender without deformity or crepitance. No flank tenderness. NEURO: AOx3. SKIN: No rash or erythema of visible areas Initial Vital Signs Initial Vital Signs: Vital Signs Temperature 96.8 F L 03/27/22 13:17 Pulse Rate 46 L 03/27/22 13:17 Respiratory Rate 16 03/27/22 13:17 Blood Pressure 216/95 H 03/27/22 13:17 Pulse Oximetry 98 03/27/22 13:17 Oxygen Delivery Method 03/27/22 13:17 <Chaparrita Wilhelm DO - Last Filed: 04/04/22 08:54> Initial Vital Signs Initial Vital Signs: Vital Signs Temperature 96.8 F L 03/27/22 13:17 Pulse Rate 46 L 03/27/22 13:17 Respiratory Rate 16 03/27/22 13:17 Blood Pressure 216/95 H 03/27/22 13:17 Pulse Oximetry 98 03/27/22 13:17 Oxygen Delivery Method 03/27/22 13:17 Course <Fredo Fatima DO - Last Filed: 03/28/22 16:01> Orders Ordered: Discontinued Medications Acetaminophen (Acetaminophen 325 Mg Tablet) 975 mg PO NOW ONE Stop: 03/28/22 10:37 Last Admin: 03/28/22 10:39 Dose: 975 mg Documented By: SHANTELLE Acetaminophen (Acetaminophen 325 Mg Tablet) 975 mg PO NOW ONE Stop: 03/28/22 16:16 Heparin Sodium (Porcine) (Heparin 5,000 Unit/Ml Vial) 7,500 unit IV NOW ONE Stop: 03/28/22 15:10 Last Admin: 03/28/22 15:33 Dose: 7,500 unit Documented By: SHANTELLE Hydralazine HCl (Hydralazine 20 Mg/Ml Vial) 10 mg IV Q6HR PRN PRN Reason: Hypertension Last Admin: 03/28/22 12:52 Dose: 10 mg Documented By: Admin: 03/27/22 18:13 Dose: 10 mg Documented By: SHANTELLE(2) Heparin Sodium/Dextrose (Heparin Drip) 25,000 unit in 500 mls @ 35.924 mls/hr IV CONT PRASHANTH; Protocol Last Admin: 03/28/22 15:33 Dose: 18 units/kg/hr, 35.924 mls/hr Documented By: SHANTELLE Reevaluation(s) Reevaluation #1: called to see patient, patient became symptomatic with a 5-6 second pause noted on tele Consultations Consultation #1: call to Dr. Ortiz ([facility] Cardio). Requests transfer, hold Metoprolol, call [place] Consultation #2: Dr. Hooker has reviewed case and requests transfer, likely pacer on Friday no current beds, ok to stay overnight, hold Metop Vital Signs Vital signs: Vital Signs - 8 hr 03/28/22 08:30 03/28/22 08:31 03/28/22 08:31 Pulse Rate 58 L 60 Respiratory Rate 14 13 Blood Pressure 185/91 H Pulse Oximetry 97 96 03/28/22 10:05 03/28/22 09:30 03/28/22 09:00 Pulse Rate 50 L 40 L 42 L Respiratory Rate 18 14 16 Blood Pressure 169/80 H 165/79 H 173/100 H Pulse Oximetry 98 99 97 03/28/22 10:04 03/28/22 10:15 03/28/22 10:15 Pulse Rate 56 L 48 L Respiratory Rate 24 22 Blood Pressure 139/65 Pulse Oximetry 98 98 03/28/22 10:30 03/28/22 10:30 03/28/22 10:45 Pulse Rate 57 L 6 L Respiratory Rate 22 18 Blood Pressure 152/89 H 151/99 H Pulse Oximetry 98 98 03/28/22 11:00 03/28/22 11:00 03/28/22 11:27 Pulse Rate 60 59 L Respiratory Rate 21 19 Blood Pressure 188/96 H Pulse Oximetry 98 98 03/28/22 11:27 03/28/22 11:30 03/28/22 11:30 Pulse Rate 56 L Respiratory Rate 18 Blood Pressure 130/78 121/73 Pulse Oximetry 97 03/28/22 11:45 03/28/22 11:45 03/28/22 12:00 Pulse Rate 58 L Respiratory Rate 15 Blood Pressure 137/61 128/80 Pulse Oximetry 97 03/28/22 12:00 03/28/22 12:16 03/28/22 12:16 Pulse Rate 63 66 Respiratory Rate 16 20 Blood Pressure 138/93 H Pulse Oximetry 99 96 03/28/22 12:30 03/28/22 12:52 03/28/22 12:31 Pulse Rate 54 L 48 L 57 L Respiratory Rate 20 19 Blood Pressure 198/95 H Pulse Oximetry 99 98 03/28/22 12:31 03/28/22 12:56 03/28/22 12:56 Pulse Rate 60 Respiratory Rate 16 Blood Pressure 198/90 H 127/68 Pulse Oximetry 98 03/28/22 13:00 03/28/22 13:00 03/28/22 13:15 Pulse Rate 50 L Respiratory Rate 23 Blood Pressure 107/57 L 124/62 Pulse Oximetry 97 03/28/22 13:30 03/28/22 13:45 03/28/22 14:00 Pulse Rate 50 L Respiratory Rate 23 Blood Pressure 150/78 H 140/82 Pulse Oximetry 97 03/28/22 14:00 03/28/22 14:15 03/28/22 14:30 Pulse Rate 49 L 49 L Respiratory Rate 19 22 Blood Pressure 127/88 Pulse Oximetry 97 98 03/28/22 14:31 03/28/22 14:00 03/28/22 14:45 Pulse Rate 64 66 Respiratory Rate 18 Blood Pressure 159/97 H 159/79 H Pulse Oximetry 98 03/28/22 14:45 03/28/22 15:00 03/28/22 15:00 Pulse Rate 57 L Respiratory Rate Blood Pressure 172/94 H 153/99 H Pulse Oximetry 03/28/22 15:16 03/28/22 15:16 03/28/22 15:30 Pulse Rate Respiratory Rate 18 Blood Pressure 193/97 H 185/94 H Pulse Oximetry 98 03/28/22 15:30 Pulse Rate 50 L Respiratory Rate 17 Blood Pressure Pulse Oximetry 97 <Chaparrita Wilhelm, - Last Filed: 04/04/22 08:54> Orders Ordered: Discontinued Medications Acetaminophen (Acetaminophen 325 Mg Tablet) 975 mg PO NOW ONE Stop: 03/28/22 10:37 Last Admin: 03/28/22 10:39 Dose: 975 mg Documented By: SHANTELLE Acetaminophen (Acetaminophen 325 Mg Tablet) 975 mg PO NOW ONE Stop: 03/28/22 16:16 Heparin Sodium (Porcine) (Heparin 5,000 Unit/Ml Vial) 7,500 unit IV NOW ONE Stop: 03/28/22 15:10 Last Admin: 03/28/22 15:33 Dose: 7,500 unit Documented By: SHANTELLE Hydralazine HCl (Hydralazine 20 Mg/Ml Vial) 10 mg IV Q6HR PRN PRN Reason: Hypertension Last Admin: 03/28/22 12:52 Dose: 10 mg Documented By: Admin: 03/27/22 18:13 Dose: 10 mg Documented By: SHANTELLE(2) Heparin Sodium/Dextrose (Heparin Drip) 25,000 unit in 500 mls @ 35.924 mls/hr IV CONT PRASHANTH; Protocol Last Admin: 03/28/22 15:33 Dose: 18 units/kg/hr, 35.924 mls/hr Documented By: SHANTELLE Vital Signs Vital signs: Vital Signs - 8 hr 03/28/22 08:30 03/28/22 08:31 03/28/22 08:31 Pulse Rate 58 L 60 Respiratory Rate 14 13 Blood Pressure 185/91 H Pulse Oximetry 97 96 03/28/22 10:05 03/28/22 09:30 03/28/22 09:00 Pulse Rate 50 L 40 L 42 L Respiratory Rate 18 14 16 Blood Pressure 169/80 H 165/79 H 173/100 H Pulse Oximetry 98 99 97 03/28/22 10:04 03/28/22 10:15 03/28/22 10:15 Pulse Rate 56 L 48 L Respiratory Rate 24 22 Blood Pressure 139/65 Pulse Oximetry 98 98 03/28/22 10:30 03/28/22 10:30 03/28/22 10:45 Pulse Rate 57 L 6 L Respiratory Rate 22 18 Blood Pressure 152/89 H 151/99 H Pulse Oximetry 98 98 03/28/22 11:00 03/28/22 11:00 03/28/22 11:27 Pulse Rate 60 59 L Respiratory Rate 21 19 Blood Pressure 188/96 H Pulse Oximetry 98 98 03/28/22 11:27 03/28/22 11:30 03/28/22 11:30 Pulse Rate 56 L Respiratory Rate 18 Blood Pressure 130/78 121/73 Pulse Oximetry 97 03/28/22 11:45 03/28/22 11:45 03/28/22 12:00 Pulse Rate 58 L Respiratory Rate 15 Blood Pressure 137/61 128/80 Pulse Oximetry 97 03/28/22 12:00 03/28/22 12:16 03/28/22 12:16 Pulse Rate 63 66 Respiratory Rate 16 20 Blood Pressure 138/93 H Pulse Oximetry 99 96 03/28/22 12:30 03/28/22 12:52 03/28/22 12:31 Pulse Rate 54 L 48 L 57 L Respiratory Rate 20 19 Blood Pressure 198/95 H Pulse Oximetry 99 98 03/28/22 12:31 03/28/22 12:56 03/28/22 12:56 Pulse Rate 60 Respiratory Rate 16 Blood Pressure 198/90 H 127/68 Pulse Oximetry 98 03/28/22 13:00 03/28/22 13:00 03/28/22 13:15 Pulse Rate 50 L Respiratory Rate 23 Blood Pressure 107/57 L 124/62 Pulse Oximetry 97 03/28/22 13:30 03/28/22 13:45 03/28/22 14:00 Pulse Rate 50 L Respiratory Rate 23 Blood Pressure 150/78 H 140/82 Pulse Oximetry 97 03/28/22 14:00 03/28/22 14:15 03/28/22 14:30 Pulse Rate 49 L 49 L Respiratory Rate 19 22 Blood Pressure 127/88 Pulse Oximetry 97 98 03/28/22 14:31 03/28/22 14:00 03/28/22 14:45 Pulse Rate 64 66 Respiratory Rate 18 Blood Pressure 159/97 H 159/79 H Pulse Oximetry 98 03/28/22 14:45 03/28/22 15:00 03/28/22 15:00 Pulse Rate 57 L Respiratory Rate Blood Pressure 172/94 H 153/99 H Pulse Oximetry 03/28/22 15:16 03/28/22 15:16 03/28/22 15:30 Pulse Rate Respiratory Rate 18 Blood Pressure 193/97 H 185/94 H Pulse Oximetry 98 03/28/22 15:30 Pulse Rate 50 L Respiratory Rate 17 Blood Pressure Pulse Oximetry 97 MDM - Syncope <Fredo Fatima, DO - Last Filed: 03/28/22 16:01> Lab Data Result diagrams: 03/28/22 09:10 03/28/22 09:10 Labs: Lab Results 03/27/22 03/27/22 03/27/22 Range/Units 13:40 13:40 13:40 WBC 6.1 (4.5-11.0) X10^3/uL RBC 4.51 (4.5-5.9) X10^6/uL Hgb 15.4 (13.5-17.5) g/dL Hct 44.9 (41-53) % MCV 99.7 (80-100) fL MCH 34.2 H (26-34) PG MCHC 34.3 (30-36) % RDW 13.9 (11.6-14.8) % Plt Count 131 L (150-400) X10^3/uL Neut % (Auto) 74.7 (50-75) % Lymph % (Auto) 14.4 L (25-40) % [place] % (Auto) 9.9 (3-14) % Eos % (Auto) 0.6 L (2-4) % Baso % (Auto) 0.4 (0-2) % Neut # (Auto) 4600 (1085-3395) /uL Lymph # (Auto) 900 L (3989-4480) /uL [place] # (Auto) 600 (0-900) /uL Eos # (Auto) 0 (0-450) /uL Baso # (Auto) 0 (0-100) /uL PT 15.1 H (10.1-12.7) SECONDS INR 1.3 (0.9-1.3) APTT 31 (26.4-36.2) SECONDS Sodium 136 L (137-145) mmol/L Potassium 5.5 H (3.4-5.1) mmol/L Chloride 102 (98-107) mmol/L Carbon Dioxide 25 (22-32) mmol/L BUN 38 H (9-20) mg/dL Creatinine 1.23 (0.66-1.25) mg/dL Estimated GFR 57 L (>60) mL/min BUN/Creatinine Ratio 30.9 H (6-22) Glucose 105 (80-110) mg/dL Calcium 9.0 (8.4-10.2) mg/dL Magnesium 2.4 H (1.6-2.3) mg/dL Total Bilirubin 1.3 (0.2-1.3) mg/dL AST 26 (17-59) IU/L ALT 19 (<50) IU/L Alkaline Phosphatase 40 (38-126) U/L Total Creatine Kinase 78 (55-170) U/L CK-MB (CK-2) TNP CK-MB (CK-2) Rel Index TNP Troponin I < 0.012 (0.01-0.034) ng/mL NT-Pro-B Natriuret Pep (<450) pg/mL Total Protein 7.5 (6.3-8.2) g/dL Albumin 4.5 (3.5-5.0) g/dL Globulin 3.0 (1.7-4.1) g/dL Albumin/Globulin Ratio 1.5 (1.0-2.8) Lipase 56 (23-300) U/L SARS-CoV-2 (PCR) (Negative) 03/27/22 03/27/22 03/27/22 Range/Units 15:28 23:23 23:23 WBC (4.5-11.0) X10^3/uL RBC (4.5-5.9) X10^6/uL Hgb (13.5-17.5) g/dL Hct (41-53) % MCV (80-100) fL MCH (26-34) PG MCHC (30-36) % RDW (11.6-14.8) % Plt Count (150-400) X10^3/uL Neut % (Auto) (50-75) % Lymph % (Auto) (25-40) % [place] % (Auto) (3-14) % Eos % (Auto) (2-4) % Baso % (Auto) (0-2) % Neut # (Auto) (4918-6889) /uL Lymph # (Auto) (4818-3495) /uL [place] # (Auto) (0-900) /uL Eos # (Auto) (0-450) /uL Baso # (Auto) (0-100) /uL PT (10.1-12.7) SECONDS INR (0.9-1.3) APTT (26.4-36.2) SECONDS Sodium 138 (137-145) mmol/L Potassium 5.0 (3.4-5.1) mmol/L Chloride 104 (98-107) mmol/L Carbon Dioxide 24 (22-32) mmol/L BUN 33 H (9-20) mg/dL Creatinine 1.06 (0.66-1.25) mg/dL Estimated GFR > 60 (>60) mL/min BUN/Creatinine Ratio 31.1 H (6-22) Glucose 100 (80-110) mg/dL Calcium 9.0 (8.4-10.2) mg/dL Magnesium (1.6-2.3) mg/dL Total Bilirubin (0.2-1.3) mg/dL AST (17-59) IU/L ALT (<50) IU/L Alkaline Phosphatase (38-126) U/L Total Creatine Kinase (55-170) U/L CK-MB (CK-2) CK-MB (CK-2) Rel Index Troponin I < 0.012 (0.01-0.034) ng/mL NT-Pro-B Natriuret Pep (<450) pg/mL Total Protein (6.3-8.2) g/dL Albumin (3.5-5.0) g/dL Globulin (1.7-4.1) g/dL Albumin/Globulin Ratio (1.0-2.8) Lipase (23-300) U/L SARS-CoV-2 (PCR) Negative (Negative) 03/28/22 03/28/22 Range/Units 09:10 09:10 WBC 6.5 (4.5-11.0) X10^3/uL RBC 4.70 (4.5-5.9) X10^6/uL Hgb 16.0 (13.5-17.5) g/dL Hct 46.8 (41-53) % MCV 99.5 (80-100) fL MCH 34.0 (26-34) PG MCHC 34.2 (30-36) % RDW 14.3 (11.6-14.8) % Plt Count 129 L (150-400) X10^3/uL Neut % (Auto) 77.5 H (50-75) % Lymph % (Auto) 13.5 L (25-40) % [place] % (Auto) 8.1 (3-14) % Eos % (Auto) 0.6 L (2-4) % Baso % (Auto) 0.3 (0-2) % Neut # (Auto) 5000 (1441-5965) /uL Lymph # (Auto) 900 L (5625-6155) /uL [place] # (Auto) 500 (0-900) /uL Eos # (Auto) 0 (0-450) /uL Baso # (Auto) 0 (0-100) /uL PT (10.1-12.7) SECONDS INR (0.9-1.3) APTT (26.4-36.2) SECONDS Sodium 136 L (137-145) mmol/L Potassium 4.7 (3.4-5.1) mmol/L Chloride 104 (98-107) mmol/L Carbon Dioxide 25 (22-32) mmol/L BUN 30 H (9-20) mg/dL Creatinine 1.10 (0.66-1.25) mg/dL Estimated GFR > 60 (>60) mL/min BUN/Creatinine Ratio 27.3 H (6-22) Glucose 110 (80-110) mg/dL Calcium 9.1 (8.4-10.2) mg/dL Magnesium (1.6-2.3) mg/dL Total Bilirubin 2.1 H (0.2-1.3) mg/dL AST 27 (17-59) IU/L ALT 19 (<50) IU/L Alkaline Phosphatase 46 (38-126) U/L Total Creatine Kinase 71 (55-170) U/L CK-MB (CK-2) TNP CK-MB (CK-2) Rel Index TNP Troponin I < 0.012 (0.01-0.034) ng/mL NT-Pro-B Natriuret Pep 2260 H (<450) pg/mL Total Protein 7.2 (6.3-8.2) g/dL Albumin 4.3 (3.5-5.0) g/dL Globulin 2.9 (1.7-4.1) g/dL Albumin/Globulin Ratio 1.5 (1.0-2.8) Lipase (23-300) U/L SARS-CoV-2 (PCR) (Negative) Point of Care Testing Glucose POC 100 MDM Narrative Medical decision making narrative: This is an 86 year old male with syncope while sitting at a table. Patient here is bradycardic, had a 5 second pause and had an additional 4.2 second pause if department. Patient's beta-sasha has been held he is not any other AV lorri blocking medications. Dr. Fatima discussed case with cardiology and Dr. Ortiz. At this time plan to continue to monitor if patient becomes more unstable will transfer sooner but plan is to transfer Friday for pacemaker. Patient case was discussed with Dr. Ortiz and myself. Plan to continue to monitor, hold BB. Patient signed back out to Dr. Fatima while awaiting transfer. Patient received back in sign out. He continues to slowly improve and is without anymore syncope. He last had Metoprolol and eliquis on the morning of 03/27. [facility] (Dr. Naranjo) to accept with plan to go to get pacer tomorrow. Request we initiate heparin <Chaparrita Wilhelm DO - Last Filed: 04/04/22 08:54> Lab Data Labs: Lab Results 03/27/22 03/27/22 03/27/22 Range/Units 13:40 13:40 13:40 WBC 6.1 (4.5-11.0) X10^3/uL RBC 4.51 (4.5-5.9) X10^6/uL Hgb 15.4 (13.5-17.5) g/dL Hct 44.9 (41-53) % MCV 99.7 (80-100) fL MCH 34.2 H (26-34) PG MCHC 34.3 (30-36) % RDW 13.9 (11.6-14.8) % Plt Count 131 L (150-400) X10^3/uL Neut % (Auto) 74.7 (50-75) % Lymph % (Auto) 14.4 L (25-40) % [place] % (Auto) 9.9 (3-14) % Eos % (Auto) 0.6 L (2-4) % Baso % (Auto) 0.4 (0-2) % Neut # (Auto) 4600 (5666-8268) /uL Lymph # (Auto) 900 L (4274-7705) /uL [place] # (Auto) 600 (0-900) /uL Eos # (Auto) 0 (0-450) /uL Baso # (Auto) 0 (0-100) /uL PT 15.1 H (10.1-12.7) SECONDS INR 1.3 (0.9-1.3) APTT 31 (26.4-36.2) SECONDS Sodium 136 L (137-145) mmol/L Potassium 5.5 H (3.4-5.1) mmol/L Chloride 102 (98-107) mmol/L Carbon Dioxide 25 (22-32) mmol/L BUN 38 H (9-20) mg/dL Creatinine 1.23 (0.66-1.25) mg/dL Estimated GFR 57 L (>60) mL/min BUN/Creatinine Ratio 30.9 H (6-22) Glucose 105 (80-110) mg/dL Calcium 9.0 (8.4-10.2) mg/dL Magnesium 2.4 H (1.6-2.3) mg/dL Total Bilirubin 1.3 (0.2-1.3) mg/dL AST 26 (17-59) IU/L ALT 19 (<50) IU/L Alkaline Phosphatase 40 (38-126) U/L Total Creatine Kinase 78 (55-170) U/L CK-MB (CK-2) TNP CK-MB (CK-2) Rel Index TNP Troponin I < 0.012 (0.01-0.034) ng/mL NT-Pro-B Natriuret Pep (<450) pg/mL Total Protein 7.5 (6.3-8.2) g/dL Albumin 4.5 (3.5-5.0) g/dL Globulin 3.0 (1.7-4.1) g/dL Albumin/Globulin Ratio 1.5 (1.0-2.8) Lipase 56 (23-300) U/L SARS-CoV-2 (PCR) (Negative) 03/27/22 03/27/22 03/27/22 Range/Units 15:28 23:23 23:23 WBC (4.5-11.0) X10^3/uL RBC (4.5-5.9) X10^6/uL Hgb (13.5-17.5) g/dL Hct (41-53) % MCV (80-100) fL MCH (26-34) PG MCHC (30-36) % RDW (11.6-14.8) % Plt Count (150-400) X10^3/uL Neut % (Auto) (50-75) % Lymph % (Auto) (25-40) % [place] % (Auto) (3-14) % Eos % (Auto) (2-4) % Baso % (Auto) (0-2) % Neut # (Auto) (6230-3208) /uL Lymph # (Auto) (6549-9431) /uL [place] # (Auto) (0-900) /uL Eos # (Auto) (0-450) /uL Baso # (Auto) (0-100) /uL PT (10.1-12.7) SECONDS INR (0.9-1.3) APTT (26.4-36.2) SECONDS Sodium 138 (137-145) mmol/L Potassium 5.0 (3.4-5.1) mmol/L Chloride 104 (98-107) mmol/L Carbon Dioxide 24 (22-32) mmol/L BUN 33 H (9-20) mg/dL Creatinine 1.06 (0.66-1.25) mg/dL Estimated GFR > 60 (>60) mL/min BUN/Creatinine Ratio 31.1 H (6-22) Glucose 100 (80-110) mg/dL Calcium 9.0 (8.4-10.2) mg/dL Magnesium (1.6-2.3) mg/dL Total Bilirubin (0.2-1.3) mg/dL AST (17-59) IU/L ALT (<50) IU/L Alkaline Phosphatase (38-126) U/L Total Creatine Kinase (55-170) U/L CK-MB (CK-2) CK-MB (CK-2) Rel Index Troponin I < 0.012 (0.01-0.034) ng/mL NT-Pro-B Natriuret Pep (<450) pg/mL Total Protein (6.3-8.2) g/dL Albumin (3.5-5.0) g/dL Globulin (1.7-4.1) g/dL Albumin/Globulin Ratio (1.0-2.8) Lipase (23-300) U/L SARS-CoV-2 (PCR) Negative (Negative) 03/28/22 03/28/22 Range/Units 09:10 09:10 WBC 6.5 (4.5-11.0) X10^3/uL RBC 4.70 (4.5-5.9) X10^6/uL Hgb 16.0 (13.5-17.5) g/dL Hct 46.8 (41-53) % MCV 99.5 (80-100) fL MCH 34.0 (26-34) PG MCHC 34.2 (30-36) % RDW 14.3 (11.6-14.8) % Plt Count 129 L (150-400) X10^3/uL Neut % (Auto) 77.5 H (50-75) % Lymph % (Auto) 13.5 L (25-40) % [place] % (Auto) 8.1 (3-14) % Eos % (Auto) 0.6 L (2-4) % Baso % (Auto) 0.3 (0-2) % Neut # (Auto) 5000 (1080-2240) /uL Lymph # (Auto) 900 L (0919-3760) /uL [place] # (Auto) 500 (0-900) /uL Eos # (Auto) 0 (0-450) /uL Baso # (Auto) 0 (0-100) /uL PT (10.1-12.7) SECONDS INR (0.9-1.3) APTT (26.4-36.2) SECONDS Sodium 136 L (137-145) mmol/L Potassium 4.7 (3.4-5.1) mmol/L Chloride 104 (98-107) mmol/L Carbon Dioxide 25 (22-32) mmol/L BUN 30 H (9-20) mg/dL Creatinine 1.10 (0.66-1.25) mg/dL Estimated GFR > 60 (>60) mL/min BUN/Creatinine Ratio 27.3 H (6-22) Glucose 110 (80-110) mg/dL Calcium 9.1 (8.4-10.2) mg/dL Magnesium (1.6-2.3) mg/dL Total Bilirubin 2.1 H (0.2-1.3) mg/dL AST 27 (17-59) IU/L ALT 19 (<50) IU/L Alkaline Phosphatase 46 (38-126) U/L Total Creatine Kinase 71 (55-170) U/L CK-MB (CK-2) TNP CK-MB (CK-2) Rel Index TNP Troponin I < 0.012 (0.01-0.034) ng/mL NT-Pro-B Natriuret Pep 2260 H (<450) pg/mL Total Protein 7.2 (6.3-8.2) g/dL Albumin 4.3 (3.5-5.0) g/dL Globulin 2.9 (1.7-4.1) g/dL Albumin/Globulin Ratio 1.5 (1.0-2.8) Lipase (23-300) U/L SARS-CoV-2 (PCR) (Negative) Point of Care Testing Glucose POC 100 Imaging Data Chest x-ray: Radiologist's Impression: [address] [address] XRay Report Signed Patient: Ulises Garcia MR#: [id number] : 1935 Acct:[id number] Age/Sex: 86 / M Date of Service: 03/27/22 Loc: ED Accession Number: [id number] ?? Procedure: XR chest 1V Ordering Provider: Fredo Fatima D.O. PROCEDURE:? XR CHEST 1V ? INDICATIONS:? chest pain ? TECHNIQUE:? One view of the chest was acquired.? ? COMPARISON:? [facility], , CHEST 1 VIEW, 12/21/2016, 15:34.? [facility], , XR CHEST 1V, 03/18/2021, 14:41. ? FINDINGS:? ? Surgical changes and devices:? None.? ? Lungs and pleura:? Lungs are clear.? No pleural effusions or pneumothorax.? ? Mediastinum:? Mediastinal contours appear normal.? Heart size is stable.? Aortic atherosclerotic calcifications are present. ? Bones and chest wall:? No suspicious bony lesions.? Overlying soft tissues appear unremarkable.? ? IMPRESSION:? No acute cardiopulmonary abnormality. ? ? Dictated by: Mark Epstein M.D. on 03/27/2022 at 14:08 ? ? Approved by: Mark Epstein M.D. on 03/27/2022 at 14:10?? MDM Narrative Medical decision making narrative: 03/27/22 [place] 1900: This is an 86 year old male with syncope while sitting at a table. Patient here is bradycardic, had a 5 second pause and had an additional 4.2 second pause if department. Patient's beta-sasha has been held he is not any other AV lorri blocking medications. Dr. Fatima discussed case with cardiology and Dr. Ortiz. At this time plan to continue to monitor if patient becomes more unstable will transfer sooner but plan is to transfer Friday for pacemaker. Patient case was discussed with Dr. Ortiz and myself. Plan to continue to monitor, hold BB. Patient signed back out to Dr. Fatima while awaiting transfer. Patient received back in sign out. He continues to slowly improve and is without anymore syncope. He last had Metoprolol and eliquis on the morning of 03/27. [facility] (Dr. Naranjo) to accept with plan to go to get pacer tomorrow. Request we initiate heparin Critical Care Time <Fredo Fatima, DO - Last Filed: 07/14/22 16:01> Critical Care Time Critical Care Time: Yes Total Critical Care Time: 45 Attestation: The high probability of a clinically significant, sudden or life threatening deterioration of the [CV] system(s) required my full and direct attention, intervention and personal management. The aggregate critical care time was [45] minutes. This time is in addition to time spent performing reported procedures but includes the following: [x] Data Review and interpretation [x] Patient assessment and monitoring of vital signs [x] Documentation [x] Medication orders and management Discharge Plan Departure Patient Disposition: [facility] Clinical Impression: Syncope, Bradycardia Prescriptions: No Action simvastatin 20 MG tablet 10 mg PO HS Qty: 0 metoprolol tartrate 50 mg tablet 50 mg PO BID Rx Instructions: 1 tablet in morning and 2 tablets at night. tadalafil [Cialis] 20 mg tablet 20 mg PO DAILY PRN Rx Instructions: administer approximately 30min before sexual activity; do not use more than 1 dose per 24hrs Eliquis 5 mg tablet 5 mg PO BID Qty: 60 11RF lisinopril 5 mg tablet 10 mg PO DAILY Qty: 60 11RF Referrals: Ayush Skinner MD [Primary Care Provider] -
[2022-03-27 14:03] LABS: Alanine Aminotransferase 19 IU/L (<50); Albumin 4.5 g/dL (3.5-5.0); Albumin Globulin Ratio 1.5 (1.0-2.8); Alkaline Phosphatase 40 U/L (38-126); Aspartate Aminotransferase 26 IU/L (17-59); BUN Creatinine Ratio 30.9 (6-22); Bilirubin Total 1.3 mg/dL (0.2-1.3); Blood Urea Nitrogen 38 mg/dL (9-20); Carbon Dioxide 25 mmol/L (22-32); Chloride 102 mmol/L (98-107); Creatine Kinase 78 U/L (55-170); Estimated Glomerular Filt Rate 57 mL/min (>60); Glucose 105 mg/dL (80-110); HEMOLYSIS 16 (0-50); Lipase 56 U/L (23-300); Magnesium 2.4 mg/dL (1.6-2.3); Sodium 136 mmol/L (137-145); Total Protein 7.5 g/dL (6.3-8.2)
[2022-03-27 14:05] LABS: Potassium 5.5 mmol/L (3.4-5.1)
[2022-03-27 14:15] LABS: Troponin I < 0.012 ng/mL (0.01-0.034)
[2022-03-27 16:11] LABS: COVID19 -Nasal RAPID Negative (Negative)
[2022-03-27] MEDS: HYDRALAZINE 20 MG/ML VIAL 10 MG IV (18:13)
[2022-03-27 23:44] LABS: BUN Creatinine Ratio 31.1 (6-22); Blood Urea Nitrogen 33 mg/dL (9-20); Carbon Dioxide 24 mmol/L (22-32); Chloride 104 mmol/L (98-107); Estimated Glomerular Filt Rate > 60 mL/min (>60); Glucose 100 mg/dL (80-110); HEMOLYSIS 22 (0-50); Sodium 138 mmol/L (137-145)
[2022-03-27 23:55] LABS: Troponin I < 0.012 ng/mL (0.01-0.034)
[2022-03-28] VITALS (68 sets, daily range): BP systolic 107–198; BP diastolic 57–104; PULSE 6–66; RESP 12–29; O2SAT 95–99
--- NOTE | 2022-03-28 04:50 | DI.ECHO.S_ITS ---
[facility] +[facility]+ : : [address] : [address] : [place] : : : : [id number] : : : : Phone: [phone]+ Echocardiogram Report + + :Name: SILVIA CARRILLO Study Date: 03/28/2022 Height: 73 in : :[facility] ReadingLocation: Weight: 220 lb : : Gender: Male BSA: 2.2 m2 : :: 1935 Age: 86 yrs BP: 150/102 mmHg: :Reason For Study: SYNCOPE, BRADYCARDIA : :Ordering Physician: ANURAG, : :LEO Performed By: Lexii Lan : :Referring: LEO OSBORN : + + Interpretation Summary Technically difficult study due to poor parasternal acoustic windows (defib patches on chest). 1) Normal left ventricular size, wall motion, and systolic function (EF 55- 60%). 2) Mildly increased right ventricular size with normal function. 3) There is mild to moderate mitral regurgitation. 4) There is mild to moderate tricuspid regurgitation. 5) Compared to the Echo done 03/14/2021, LVEF has improved from 30-35% to 55- 60% on this study. Procedure: A two-dimensional transthoracic echocardiogram with color flow and Doppler was performed. The study quality was technically difficult. Comparison is made with the echocardiogram of 03/14/2021. Images from the parasternal window were difficult to obtain and are suboptimal in quality. The heart rate ranged between 44-63 bpm during the study. Left Ventricle: The left ventricle is normal in size. There is mild concentric left ventricular hypertrophy. The ejection fraction is estimated to be 55-60%. Right Ventricle: The right ventricle is mildly dilated. The right ventricular systolic function is normal. Atria: The left atrium is severely dilated. The right atrium is mild to moderately dilated. There is no Doppler evidence for an interatrial shunt. Mitral Valve: The mitral valve leaflets appear borderline thickened, but open well. There is mild to moderate mitral regurgitation. Aortic Valve: The aortic valve is not well visualized. There is no aortic valve stenosis. No aortic regurgitation is present. Tricuspid Valve: The tricuspid valve is not well visualized, but is grossly normal. There is mild to moderate tricuspid regurgitation. The right ventricular systolic pressure is estimated to be at least 48 mmHg based on an estimated right atrial pressure of 3 mm Hg. Pulmonic Valve: The pulmonic valve is not well visualized. There is no pulmonic valvular regurgitation. Great Vessels: The aortic root is normal size. The ascending aorta could not be visualized. The IVC is of normal diameter and collapses greater than 50% with a sniff. This suggests a low right atrial pressure of 3 mm Hg. Pericardium/ Pleura There is no pericardial effusion. There is no pleural effusion. MMode/2D Measurements & Calculations LVIDd: 4.5 cm LVOT diam: 2.1 cm LVIDs: 3.0 cm Ao root diam: 3.5 cm FS: 34.7 % Ao Arch Diam (Prox Trans): 3.4 cm IVSd: 1.2 cm LVPWd: 1.1 cm LV loaiza. diameter/BSA (cm/m^2): 2.0 LV sys. diameter/BSA (cm/m^2): 1.3 LA A2 area: 30.3 cm2 RA long axis: 6.3 cm LA A4 area: 33.0 cm2 RA area: 25.3 cm2 LA length (vol): 7.4 cm RA vol: 86.0 ml LA vol: 115.1 ml RA : 38.4 ml/m2 LA vol index: 51.4 ml/m2 IVC diam: 1.9 cm RVD1 (basal): 4.8 cm RVD2 (mid): 3.2 cm TAPSE: 2.0 cm Doppler Measurements & Calculations Ao V2 max: 143.5 cm/sec LVOT Max Rodney: 85.4 cm/sec Ao V2 mean: 96.4 cm/sec LV V1 max P.9 mmHg Ao max P.2 mmHg LV V1 VTI: 20.7 cm Ao mean P.2 mmHg DILAN(I,D): 2.2 cm2 Ao V2 VTI: 32.3 cm DILAN(V,D): 2.1 cm2 sev ratio: 0.64 DILAN indexed to BSA (cm^2/m^2): 1.0 MV E max rodney: 103.7 cm/sec TR max rodney: 336.9 cm/sec MV A max rodney: 38.0 cm/sec TR max P.4 mmHg MV E/A: 2.7 PA pr(Accel): 27.6 mmHg Med Peak E' Rodney: 7.2 cm/sec E/E' med: 14.5 Lat Peak E' Rodney: 10.9 cm/sec E/E' lat: 9.5 E/e' average: 12.0 MV dec time: 0.14 sec SV(LVOT): 72.5 ml Reading Physician:09:33 AM
[2022-03-28 09:20] LABS: Add Manual Diff / Slide Review NO; Basophils Absolute Auto 0 /uL (0-100); Basophils Percent Auto 0.3 % (0-2); Eosinophils Absolute Auto 0 /uL (0-450); Eosinophils Percent Auto 0.6 % (2-4); Hematocrit 46.8 % (41-53); Lymphocytes Absolute Auto 900 /uL (1100-4500); Lymphocytes Percent Auto 13.5 % (25-40); Mean Corpuscular HGB Conc 34.2 % (30-36); Mean Corpuscular Volume 99.5 fL (80-100); Monocytes Absolute Auto 500 /uL (0-900); Monocytes Percent Auto 8.1 % (3-14); Neutrophils Absolute Auto 5000 /uL (1500-7000); Neutrophils Percent Auto 77.5 % (50-75); Platelet Count 129 X10^3/uL (150-400); Red Cell Distribution Width 14.3 % (11.6-14.8); White Blood Cell Count 6.5 X10^3/uL (4.5-11.0)
[2022-03-28 09:33] LABS: Alanine Aminotransferase 19 IU/L (<50); Albumin 4.3 g/dL (3.5-5.0); Albumin Globulin Ratio 1.5 (1.0-2.8); Alkaline Phosphatase 46 U/L (38-126); Aspartate Aminotransferase 27 IU/L (17-59); BUN Creatinine Ratio 27.3 (6-22); Bilirubin Total 2.1 mg/dL (0.2-1.3); Blood Urea Nitrogen 30 mg/dL (9-20); Calcium 9.1 mg/dL (8.4-10.2); Carbon Dioxide 25 mmol/L (22-32); Chloride 104 mmol/L (98-107); Creatine Kinase 71 U/L (55-170); Estimated Glomerular Filt Rate > 60 mL/min (>60); Globulin 2.9 g/dL (1.7-4.1); Glucose 110 mg/dL (80-110); HEMOLYSIS < 15 (0-50); Potassium 4.7 mmol/L (3.4-5.1); Sodium 136 mmol/L (137-145); Total Protein 7.2 g/dL (6.3-8.2)
[2022-03-28 09:44] LABS: NT-proBNP (BNP-Adult 18+) 2260 pg/mL (<450); Troponin I < 0.012 ng/mL (0.01-0.034)
[2022-03-28] MEDS: ACETAMINOPHEN 325 MG TABLET 975 MG PO (10:39)
[2022-03-28] MEDS: HYDRALAZINE 20 MG/ML VIAL 10 MG IV (12:52)
--- NOTE | 2022-03-28 13:48 | PC.NURSE ---
Late Entry: Provider asked me to place this patient on the transfer list at [facility]. The patient was accepted by [facility] cardiology with scheduled appointment on 03/29/2022 for a pacemaker placement.
--- NOTE | 2022-03-28 13:54 | PC.NURSE ---
I called [facility] and talked to the gate supervisor Lesley. She stated that they were trying to make room for this patient this afternoon or evening due to tomorrow morning planned pacemaker placement surgery.
[2022-03-28] MEDS: HEPARIN DRIP 25,000 UNIT/500 ML IV.SOLN 35.924 UNIT IV (15:33)
[2022-03-28] MEDS: HEPARIN 5,000 UNIT/ML VIAL 7500 UNIT IV (15:33)
--- NOTE | 2022-03-28 15:52 | PC.NURSE ---
BRENDA P/U 1550 Accepted [facility] Dr. Naranjo / Lesley Nurse to Nurse : Aroldo Sigala at [phone] Arrival time 1630 report given by phone aroldo sigala rn.
--- NOTE | 2022-04-30 12:45 | PC.NURSE ---
Late entry: Per primary RN: Heparin gtt started @ 1533 continued at documented rate with [facility]. Completed for purposes of [facility] documentation only.
== END 2022-03-28 15:55 | disposition short-term general hospital (02) ==
PROVIDERS: Emergency Medicine; Emergency Provider Emergency Medicine; PCP Internal Medicine
DX: R55 Syncope and collapse (principal); R00.1 Bradycardia, unspecified; R07.9 Chest pain, unspecified; Z20.822 Contact with and (suspected) exposure to COVID-19
CPT/HCPCS: 36415; 71045; 80048; 80053; 82550; 82962; 83690; 83735; 83880; 84484; 85025; 85610; 85730; 87635; 93005; 93010; 93306; 96365; 96375; 99284; 99291; 99292; C9803; J0360; J1644

== ENCOUNTER → 2022-10-23 16:13 | Outpatient (CLI) | payer MEDICARE, OTHER, SELFPAY ==
[2021-03-18 20:35] VITALS: BMI 29.5
[2022-10-23 17:40] LABS: Hematocrit 43.4 % (41-53); Hemoglobin 14.8 g/dL (13.5-17.5); Mean Corpuscular Hemoglobin 34.1 PG (26-34); Mean Corpuscular Volume 100.3 fL (80-100); Platelet Count 129 X10^3/uL (150-400); Red Blood Cell Count 4.33 X10^6/uL (4.5-5.9); Red Cell Distribution Width 13.6 % (11.6-14.8); White Blood Cell Count 5.6 X10^3/uL (4.5-11.0)
[2022-10-23 18:25] LABS: Alanine Aminotransferase 25 IU/L (<50); Albumin 4.4 g/dL (3.5-5.0); Albumin Globulin Ratio 1.3 (1.0-2.8); Alkaline Phosphatase 49 U/L (38-126); Aspartate Aminotransferase 37 IU/L (17-59); BUN Creatinine Ratio 26.7 (6-22); Bilirubin Total 1.3 mg/dL (0.2-1.3); Blood Urea Nitrogen 35 mg/dL (9-20); Calcium 8.8 mg/dL (8.4-10.2); Carbon Dioxide 22 mmol/L (22-32); Chloride 100 mmol/L (98-107); Cholesterol 162 mg/dL (140-199); Estimated Glomerular Filt Rate 53 mL/min (>60); Globulin 3.3 g/dL (1.7-4.1); Glucose 87 mg/dL (80-110); HDL Cholesterol 54 mg/dL (40-60); HEMOLYSIS 56 (0-50); LDL Cholesterol Calculated 85 mg/dL (<100); Potassium 4.8 mmol/L (3.4-5.1); Sodium 136 mmol/L (137-145); Total Protein 7.7 g/dL (6.3-8.2); Triglycerides 117 mg/dL (35-150)
== END ==
PROVIDERS: PCP Internal Medicine; Referring Provider Internal Medicine; Visit Provider Internal Medicine
DX: E78.2 Mixed hyperlipidemia (principal); I10 Essential (primary) hypertension; I48.20 Chronic atrial fibrillation, unspecified
CPT/HCPCS: 36415; 80053; 80061; 85027

== ENCOUNTER → 2023-11-20 08:50 | Outpatient (CLI) | payer MEDICARE, OTHER, SELFPAY ==
[2021-03-18 20:35] VITALS: BMI 29.5
[2023-11-20 09:28] LABS: Hematocrit 45.6 % (41-53); Hemoglobin 15.2 g/dL (13.5-17.5); Mean Corpuscular HGB Conc 33.3 % (30-36); Mean Corpuscular Hemoglobin 33.6 PG (26-34); Mean Corpuscular Volume 100.8 fL (80-100); Platelet Count 131 X10^3/uL (150-400); Red Blood Cell Count 4.53 X10^6/uL (4.5-5.9); Red Cell Distribution Width 13.6 % (11.6-14.8)
[2023-11-20 10:18] LABS: Aspartate Aminotransferase 29 IU/L (17-59); BUN Creatinine Ratio 22.2 (6-22); Blood Urea Nitrogen 24 mg/dL (9-20); Calcium 9.6 mg/dL (8.4-10.2); Carbon Dioxide 26 mmol/L (22-32); Chloride 107 mmol/L (98-107); Cholesterol 168 mg/dL (140-199); Estimated Glomerular Filt Rate > 60 mL/min (>60); Glucose 114 mg/dL (80-110); HDL Cholesterol 53 mg/dL (40-60); HEMOLYSIS < 15 (0-50); LDL Cholesterol Calculated 95 mg/dL (<100); Potassium 4.7 mmol/L (3.4-5.1); Sodium 139 mmol/L (137-145); Triglycerides 102 mg/dL (35-150)
== END ==
LOC: LAB 08:51
PROVIDERS: PCP Internal Medicine; Referring Provider Internal Medicine; Visit Provider Internal Medicine
DX: E78.2 Mixed hyperlipidemia (principal); I10 Essential (primary) hypertension; Z79.01 Long term (current) use of anticoagulants
CPT/HCPCS: 36415; 80048; 80061; 84450; 85027

== ENCOUNTER → 2023-11-20 08:52 | Outpatient (CLI) | payer MEDICARE, OTHER, SELFPAY ==
[2021-03-18 20:35] VITALS: BMI 29.5
--- NOTE | 2023-11-20 08:55 | DI.RAD.S_ITS ---
PROCEDURE: XR LUMBAR SPINE 2-3V INDICATIONS: BACK PAIN TECHNIQUE: 3 views of the lumbar spine were acquired. COMPARISON: [facility], , L-SPINE 2-3 VIEWS, 06/20/2015, 13:47. FINDINGS: Bones: 5 [id number] vertebrae are present. Mild grade 1 retrolisthesis of L2 on L3, L3 on L4 and L4 on L5. There is multilevel facet arthropathy, worse at L4-5 and L5-S1. Mild multilevel disc height loss with degenerative endplate changes and spurring is present. This is most pronounced at L2-L3 and L5-S1. There is progression L2-L3. No vertebral body compression fractures. No suspicious bony lesions. Diffusely decreased osseous mineralization. Soft tissues: Overlying bowel gas pattern is normal. No suspicious soft tissue calcifications. Atherosclerotic vascular calcifications. IMPRESSION: Multilevel degenerative changes of the lumbar spine which are mildly progressed compared to prior. Dictated by: Goran Rai M.D. on 11/20/2023 at 10:48 Approved by: Goran Rai M.D. on 11/20/2023 at 10:50
--- NOTE | 2023-11-20 08:55 | DI.RAD.S_ITS ---
PROCEDURE: XR CERVICAL SPINE 2V OR 3V INDICATIONS: BACK PAIN TECHNIQUE: 3 view(s) of the cervical spine were acquired. COMPARISON: None. FINDINGS: Bones: No fractures or dislocations to the C6-C7 level. Grade 1 anterolisthesis of C4 on C5. There are multilevel degenerative changes of the cervical spine with facet and uncovertebral arthropathy, disc height loss with degenerative endplate changes and spurring. This is most pronounced at C5-C6 The lateral masses of C1 appear intact on the odontoid view. No suspicious bony lesions. Diffusely decreased osseous mineralization. Soft tissues: No prevertebral soft tissue swelling. Atherosclerotic vascular calcifications. IMPRESSION: Multilevel degenerative changes of the cervical spine. Dictated by: Goran Rai M.D. on 11/20/2023 at 10:52 Approved by: Goran Rai M.D. on 11/20/2023 at 10:55
--- NOTE | 2023-11-20 08:55 | DI.RAD.S_ITS ---
PROCEDURE: XR THORACIC SPINE 2V INDICATIONS: BACK PAIN TECHNIQUE: To views of the thoracic spine were acquired. COMPARISON: None. FINDINGS: Bones: No fractures or dislocations. No suspicious bony lesions. 12 pairs of ribs are noted, and appear intact where visualized. There is multilevel intervertebral disc height loss with degenerative endplate changes and marginal spurring. Diffusely decreased osseous mineralization Soft tissues: No paravertebral stripe thickening. Atherosclerotic vascular calcifications. Partially visualized left chest wall pacemaking device. IMPRESSION: Multilevel degenerative changes of the thoracic spine. No vertebral body compression deformities. Dictated by: Goran Rai M.D. on 11/20/2023 at 10:50 Approved by: Goran Rai M.D. on 11/20/2023 at 10:52
== END ==
LOC: RAD 08:54
PROVIDERS: PCP Internal Medicine; Referring Provider Chiropractor; Visit Provider Chiropractor
DX: M47.812 Spondylosis without myelopathy or radiculopathy, cervical region (principal); M99.01 Segmental and somatic dysfunction of cervical region; M50.322 Other cervical disc degeneration at C5-C6 level; M47.814 Spondylosis without myelopathy or radiculopathy, thoracic region; M99.02 Segmental and somatic dysfunction of thoracic region; M51.34 Other intervertebral disc degeneration, thoracic region; M47.816 Spondylosis without myelopathy or radiculopathy, lumbar region; M99.03 Segmental and somatic dysfunction of lumbar region; M51.37 Other intervertebral disc degeneration, lumbosacral region; E78.2 Mixed hyperlipidemia; I10 Essential (primary) hypertension; Z79.01 Long term (current) use of anticoagulants
CPT/HCPCS: 36415; 72040; 72070; 72100; 80048; 80061; 84450; 85027

== ENCOUNTER → 2024-12-24 13:18 | Outpatient (CLI) | payer MEDICARE, OTHER, SELFPAY ==
[2021-03-18 20:35] VITALS: BMI 29.5
--- NOTE | 2024-12-24 14:10 | DI.RAD.S_ITS ---
PROCEDURE: XR CHEST 2V INDICATIONS: Verify pacemaker placement TECHNIQUE: 2 views of the chest were acquired. COMPARISON: [facility], CR, XR CHEST 1V, 03/27/2022, 13:36. FINDINGS: Surgical changes and devices: New left anterior single lead cardiac pacing device. Lungs and pleura: Lungs are clear. No pleural effusions or pneumothorax. Mediastinum: Mediastinal contours are normal. Heart size is normal. Atherosclerotic vascular calcifications. Bones and chest wall: No suspicious bony abnormalities. Soft tissues appear unremarkable. IMPRESSION: No acute cardiopulmonary abnormality is seen. Dictated by: Cam Montiel M.D. on 12/25/2024 at 6:19 Approved by: Cam Montiel M.D. on 12/25/2024 at 6:20
[2024-12-24 14:43] LABS: Aspartate Aminotransferase 26 IU/L (17-59); BUN Creatinine Ratio 27.3 (6-22); Blood Urea Nitrogen 41 mg/dL (9-20); Calcium 9.3 mg/dL (8.4-10.2); Carbon Dioxide 23 mmol/L (22-32); Chloride 105 mmol/L (98-107); Cholesterol 135 mg/dL (140-199); Estimated Glomerular Filt Rate 44 mL/min (>60); Glucose 97 mg/dL (80-110); HDL Cholesterol 62 mg/dL (40-60); HEMOLYSIS 16 (0-50); LDL Cholesterol Calculated 62 mg/dL (<100); Potassium 5.1 mmol/L (3.4-5.1); Sodium 136 mmol/L (137-145); Triglycerides 57 mg/dL (35-150)
== END ==
PROVIDERS: PCP Internal Medicine; Referring Provider Urology; Visit Provider Urology
DX: E78.2 Mixed hyperlipidemia (principal); N18.32 Chronic kidney disease, stage 3b; I48.20 Chronic atrial fibrillation, unspecified; N28.89 Other specified disorders of kidney and ureter; Z95.0 Presence of cardiac pacemaker
CPT/HCPCS: 36415; 71046; 80048; 80061; 84450

== ENCOUNTER 2025-04-17 11:49 | Emergency (ER) | payer MEDICARE, OTHER, SELFPAY ==
[2021-03-18 20:35] VITALS: BMI 29.5
[2025-04-17] VITALS (11 sets, daily range): BP systolic 132–185; BP diastolic 81–105; PULSE 60–150; RESP 12–33; TEMP 35.9–36.4; O2SAT 95–100; BMI 28.2
--- NOTE | 2025-04-17 12:29 | DI.RAD.S_ITS ---
PROCEDURE: XR CHEST 1V INDICATIONS: Chest Pain TECHNIQUE: One view of the chest was acquired. COMPARISON: [facility], CR, XR CHEST 2 VIEWS, 03/30/2022, 6:12. [facility], CR, XR CHEST 1 VIEW, 03/29/2022, 15:07. [facility], CR, XR CHEST 2V, 12/24/2024, 13:15. FINDINGS: Surgical changes and devices: A left-sided pacer is seen. Lungs and pleura: Mac Mediastinum: The cardiac contours are within normal limits. The aorta demonstrates calcification and tortuosity. Bones and chest wall: Age-appropriate bony degenerative changes are seen. No suspicious bony lesions. Overlying soft tissues appear unremarkable. IMPRESSION: No acute cardiopulmonary abnormality is seen. Postoperative and degenerative changes are seen. Dictated by: Yaya Steinberg M.D. on 04/17/2025 at 12:36 Approved by: Yaya Steinberg M.D. on 04/17/2025 at 12:37
--- NOTE | 2025-04-17 12:29 | DI.RAD.S_ITS ---
PROCEDURE: XR ELBOW LT MIN 3V INDICATIONS: swelling TECHNIQUE: 3 views of the elbow were acquired. COMPARISON: [facility], CR, XR CHEST 1V, 04/17/2025, 12:36. FINDINGS: Bones: No fractures or dislocations. No suspicious bony lesions. Soft tissues: Generalized soft tissue swelling is seen. There is a small elbow joint effusion. No suspicious soft tissue calcifications. An 11 mm metallic foreign body can be seen involving the distal upper arm. IMPRESSION: Generalized soft tissue swelling with a small joint effusion. No acute bony abnormality is seen. 11 mm metallic foreign body noted. Dictated by: Yaya Steinberg M.D. on 04/17/2025 at 12:37 Approved by: Yaya Steinberg M.D. on 04/17/2025 at 12:38
--- NOTE | 2025-04-17 12:57 | EKG_ITS ---
[address] [address] Test Date: 2025-04-17 Pat Name: Ulises Garcia Department: [facility] Room: Gender: Male Cardiothoracic Surgeon: ALISHA : 1935 Requested By: Order Number: [id number] Reading MD: Toby Pinto Measurements Intervals [place] Rate: 60 P: [place]: QRS: -32 QRSD: 170 T: 76 QT: 484 QTc: 484 Interpretive Statements Ventricular-paced rhythm Electronically Signed On 04-23-2025 7:25:00 PDT by Toby Pinto
[2025-04-17 13:28] LABS: Add Manual Diff / Slide Review NO; Hematocrit 43.1 % (41-53); Hemoglobin 14.5 g/dL (13.5-17.5); Lymphocytes Absolute Auto 900 /uL (1100-4500); Mean Corpuscular HGB Conc 33.7 % (30-36); Mean Corpuscular Hemoglobin 33.4 PG (26-34); Mean Corpuscular Volume 99.0 fL (80-100); Platelet Count 142 X10^3/uL (150-400)
[2025-04-17 13:34] LABS: INR 1.5 (0.9-1.3); Prothrombin Time 16.7 SECONDS (9.4-12.5)
[2025-04-17 13:36] LABS: PTT Partial Thromboplastin Tim 29 SECONDS (25.1-36.5)
[2025-04-17 13:38] LABS: Alanine Aminotransferase 16 IU/L (<50); Albumin 4.1 g/dL (3.5-5.0); Albumin Globulin Ratio 1.3 (1.0-2.8); Alkaline Phosphatase 52 U/L (38-126); Blood Urea Nitrogen 42 mg/dL (9-20); Calcium 9.2 mg/dL (8.4-10.2); Carbon Dioxide 21 mmol/L (22-32); Chloride 108 mmol/L (98-107); Creatine Kinase 75 U/L (55-170); Estimated Glomerular Filt Rate 51 mL/min (>60); Globulin 3.1 g/dL (1.7-4.1); Glucose 146 mg/dL (70-99); HEMOLYSIS < 15 (0-50); Lipase 23 U/L (23-300); Magnesium 2.1 mg/dL (1.6-2.3); Potassium 4.9 mmol/L (3.4-5.1); Sodium 136 mmol/L (137-145); Total Protein 7.2 g/dL (6.3-8.2)
[2025-04-17 13:49] LABS: NT-proBNP (BNP-Adult 18+) 2820 pg/mL (<450); Troponin I < 0.012 ng/mL (0.01-0.034)
--- NOTE | 2025-04-17 16:14 | PC.NURSE ---
Patient reports intermittent lightheadedness, especially with getting up, and decrease energy since MRI procedure. Provider Tyra at bedside and aware.
--- NOTE | 2025-04-17 16:24 | DI.US.S_ITS ---
PROCEDURE: US PERIPH VENOUS UP EXTREM LT INDICATIONS: swelling/pain TECHNIQUE: Real-time imaging, as well as color and pulse Doppler interrogation, was performed of the upper extremity deep veins from the inferior neck to the antecubital fossa. COMPARISON: [facility], CR, XR ELBOW LT MIN 3V, 04/17/2025, 12:36. [facility], CR, XR CHEST 1V, 04/17/2025, 12:36. FINDINGS: The internal jugular vein, visualized portions of the subclavian vein, axillary, and brachial veins are free of intraluminal thrombus. Where physically possible, the veins are normally compressible. Color and pulse Doppler demonstrate normal intraluminal flow, with expected phasicity and pulsatility. Additional scanning of the cephalic and basilic veins of the superficial system demonstrates normal compressibility, without thrombus. IMPRESSION: No findings of upper extremity deep venous thrombosis can be seen. Dictated by: Yaya Steinberg M.D. on 04/17/2025 at 16:48 Approved by: Yaya Steinberg M.D. on 04/17/2025 at 16:48
--- NOTE | 2025-04-17 16:26 | ED.UPPEXIN ---
HPI - Extremity Injury (Upper) General Chief Complaint: Extremity Injury, Upper Stated Complaint: Swelling of both arms; lightheaded, tired Time Seen by Provider: 04/17/25 16:23 Source: patient Mode of arrival: Ambulatory History of Present Illness HPI narrative: 89-year-old male with a pacemaker and history of atrial fibrillation on anticoagulation with Eliquis presents with feeling more dizzy and lightheaded since having an MRI done after change in the settings of his pacemaker over in [place]. The patient also started with left upper extremity swelling and some pain a day after the MRI was done. Patient denies any chest pain, no shortness of breath, no other symptoms. Fourteen point systems negative otherwise. He has a follow-up cardiology appointment this Friday for the pacemaker interrogation. Related Data Home Medications ?Medication ?Instructions ?Recorded ?Confirmed diphenhydramine 25 1 tab PO BEDTIME PRN 04/19/22 04/14/25 mg-acetaminophen 500 mg tablet (Tylenol PM Extra Strength) multivitamin 1 tab PO DAILY 04/19/22 04/14/25 Previous Rx's ?Medication ?Instructions ?Recorded apixaban 5 mg tablet (Eliquis) 5 mg PO BID #180 tabs 08/18/24 lisinopril 20 mg tablet 20 mg PO BID #180 tabs 08/18/24 metoprolol succinate 50 mg 50 mg PO BID #180 tabs 08/18/24 tablet,extended release 24 hr simvastatin 20 mg tablet 10 mg (1/2 x 20 mg) PO HS #45 tabs 08/18/24 tadalafil 20 mg tablet (Cialis) 20 mg PO DAILY PRN sexual activity 08/18/24 #30 tabs cephalexin 500 mg capsule 500 mg PO BID #20 caps 04/17/25 Allergies Allergy/AdvReac Type Severity Reaction Status Date / Time amlodipine AdvReac Intermediate edema Verified 04/17/25 12:24 rivaroxaban (From Xarelto) AdvReac bleeding Verified 04/17/25 12:25 Review of Systems Review of Systems ROS Unobtainable: All systems reviewed & are unremarkable except as noted in HPI and below Patient History Medical History Renal mass Chronic kidney disease, stage 3b Venous (peripheral) insufficiency Overweight Primary osteoarthritis involving multiple joints Tinea cruris Cardiac pacemaker SSS (sick sinus syndrome) Chronic anticoagulation Chronic atrial fibrillation Right leg DVT Mixed hyperlipidemia Hypertension, essential Chronic left ventricular systolic heart failure Surgical History Status post colon resection Family History Mother Hypertension Blood clot in vein Father Heart attack Social History household members: spouse alcohol intake: current alcohol intake frequency: 3 or more drinks per day Alcohol type: wine Exam Narrative Exam Narrative: General: Patient appears to be in no acute distress, acting appropriately Head: normocephalic, atraumatic, HEENT: Pupils equal round reactive, eyes tracking well, neck supple, no JVD Heart: regular rate and rhythm, no murmurs, rubs, or gallops heard Lungs: clear to auscultation, no adventitious sounds Abdomen: soft , nontender, nondistended, positive bowel sounds Neurological: no focal neurological signs, moving all extremities well, alert and oriented x3, Psych: good judgment ,good insight, mood is normal. left upper ext: warm/swelling around elbow area Initial Vital Signs Initial Vital Signs: Vital Signs Temperature 96.6 F L 04/17/25 12:24 Pulse Rate 60 04/17/25 12:24 Respiratory Rate 18 04/17/25 12:24 Blood Pressure 132/81 04/17/25 12:24 Pulse Oximetry 98 04/17/25 12:24 Oxygen Delivery Method Room Air 04/17/25 12:24 Course Course Course Narrative: We will order a left upper extremity venous Doppler in order to rule out a DVT or other issue. Orders Ordered: ED Orders 04/17/25 12:29 XR chest 1V Stat XR elbow LT min 3V Stat EKG-12 Lead Stat 04/17/25 13:14 Complete Blood Count AUTO DIFF Stat Comprehensive Metabolic Panel Stat Lipase Stat Magnesium Stat NT-proBNP (BNP-Adult 18+) Stat PTT Partial Thromboplastin Daryn Stat Prothrombin Time INR Stat Troponin & CK Cardiac Panel Stat 04/17/25 16:24 US periph venous up extrem lt Stat Discontinued Medications Aspirin (Aspirin 81 Mg Chew Tab) 324 mg PO NOW ONE Stop: 04/17/25 12:29 Last Admin: 04/17/25 12:30 Dose: Not Given Documented By: BT Reevaluation(s) Reevaluation #1: Upon re-evaluation, there is no explanation in the laboratory work to explain this dizziness. Patient is eager to be discharged. He has a follow up with assistant toddler teacher for pacemaker interrogation. Vital Signs Vital signs: Vital Signs - 8 hr 04/17/25 12:24 04/17/25 15:47 04/17/25 16:00 Temperature 96.6 F L 97.6 F Pulse Rate 60 60 60 Respiratory Rate 18 16 14 Blood Pressure 132/81 157/84 H Pulse Oximetry 98 98 100 Oxygen Delivery Method Room Air Room Air 04/17/25 16:01 04/17/25 16:01 04/17/25 16:30 Temperature Pulse Rate 60 60 Respiratory Rate 13 12 Blood Pressure 164/87 H Pulse Oximetry 100 100 Oxygen Delivery Method Room Air 04/17/25 16:30 04/17/25 17:09 04/17/25 17:11 Temperature Pulse Rate 86 69 Respiratory Rate 18 Blood Pressure 156/87 H Pulse Oximetry 99 Oxygen Delivery Method Room Air 04/17/25 17:11 Temperature Pulse Rate Respiratory Rate Blood Pressure 157/99 H Pulse Oximetry Oxygen Delivery Method MDM - Extremity Injury (Upper) Differential Diagnosis Differential diagnosis: Likely other (orthostatic hypotension, electrolyte deficiency vs irregular rhythm ) Lab Data 04/17/25 13:14 04/17/25 13:14 Labs: Lab Results 04/17/25 Range/Units 13:14 WBC 7.2 (4.5-11.0) X10^3/uL RBC 4.35 L (4.5-5.9) X10^6/uL Hgb 14.5 (13.5-17.5) g/dL Hct 43.1 (41-53) % MCV 99.0 (80-100) fL MCH 33.4 (26-34) PG MCHC 33.7 (30-36) % RDW 14.4 (11.6-14.8) % Plt Count 142 L (150-400) X10^3/uL Neut % (Auto) 77.2 H (50-75) % Lymph % (Auto) 12.3 L (25-40) % [place] % (Auto) 9.2 (3-14) % Eos % (Auto) 1.0 L (2-4) % Baso % (Auto) 0.3 (0-2) % Neut # (Auto) 5600 (1015-4247) /uL Lymph # (Auto) 900 L (4522-2047) /uL [place] # (Auto) 700 (0-900) /uL Eos # (Auto) 100 (0-450) /uL Baso # (Auto) 0 (0-100) /uL PT 16.7 H (9.4-12.5) SECONDS INR 1.5 H (0.9-1.3) APTT 29 (25.1-36.5) SECONDS Sodium 136 L (137-145) mmol/L Potassium 4.9 (3.4-5.1) mmol/L Chloride 108 H (98-107) mmol/L Carbon Dioxide 21 L (22-32) mmol/L BUN 42 H (9-20) mg/dL Creatinine 1.34 H (0.66-1.25) mg/dL Estimated GFR 51 L (>60) mL/min BUN/Creatinine Ratio 31.3 H (6-22) Glucose 146 H (70-99) mg/dL Calcium 9.2 (8.4-10.2) mg/dL Magnesium 2.1 (1.6-2.3) mg/dL Total Bilirubin 1.3 (0.2-1.3) mg/dL AST 24 (17-59) IU/L ALT 16 (<50) IU/L Alkaline Phosphatase 52 (38-126) U/L Total Creatine Kinase 75 (55-170) U/L Troponin I < 0.012 (0.01-0.034) ng/mL NT-Pro-B Natriuret Pep 2820 H (<450) pg/mL Total Protein 7.2 (6.3-8.2) g/dL Albumin 4.1 (3.5-5.0) g/dL Globulin 3.1 (1.7-4.1) g/dL Albumin/Globulin Ratio 1.3 (1.0-2.8) Lipase 23 (23-300) U/L Imaging Data US - DVT: Radiologist's Impression: left upper ext us show no findings of left upper extremity DVT ECG Data Interpretation: EKG shows a ventricular paced rhythm at 60 beats per minute Previous EKG showed a ventricular paced rhythm as well. MDM Narrative Medical decision making narrative: Unclear of etiology for his dizziness. Patient is eager to be discharged and will follow up with his assistant toddler teacher as planned. We will prescribe antibiotics for his left elbow cellulitis picture. Discharge Plan Departure Patient Disposition: Home Clinical Impression: Dizziness, Cellulitis of arm, left Instructions: DI for Cellulitis -- Adult Activity Restrictions/Additional Instructions: Take antibiotics as prescribed. Follow up with assistant toddler teacher as planned for pacemaker interrogation. Follow up sooner in ED if any new symptoms arise. Prescriptions: New cephalexin 500 mg capsule 500 mg PO BID Qty: 20 0RF No Action simvastatin 20 mg tablet 10 mg PO HS Qty: 45 3RF metoprolol succinate 50 mg tablet extended release 24 hr 50 mg PO BID Qty: 180 3RF Eliquis 5 mg tablet 5 mg PO BID Qty: 180 3RF lisinopril 20 mg tablet 20 mg PO BID Qty: 180 3RF tadalafil [Cialis] 20 mg tablet 20 mg PO DAILY PRN (Reason: sexual activity) Qty: 30 11RF Rx Instructions: administer approximately 30min before sexual activity; do not use more than 1 dose per 24hrs multivitamin Tablet 1 tab PO DAILY diphenhydramine-acetaminophen [Tylenol PM Extra Strength] 25-500 mg tablet 1 tab PO BEDTIME PRN Referrals: Ayush Skinner MD [Primary Care Provider, Internal Medicine] Stand Alone Forms: Patient Portal/API
== END 2025-04-17 18:41 | disposition home or self-care (01) ==
PROVIDERS: Emergency Provider Family Medicine; PCP Internal Medicine
DX: R42 Dizziness and giddiness (principal); L03.114 Cellulitis of left upper limb; Z79.01 Long term (current) use of anticoagulants; Z95.0 Presence of cardiac pacemaker
CPT/HCPCS: 36415; 71045; 73080; 80053; 82550; 83690; 83735; 83880; 84484; 85025; 85610; 85730; 93005; 93971; 99283; 99284

== ENCOUNTER → 2025-04-26 10:16 | Outpatient (CLI) | payer MEDICARE, OTHER, SELFPAY ==
[2021-03-18 20:35] VITALS: BMI 29.5
--- NOTE | 2025-04-26 10:18 | DI.RAD.S_ITS ---
PROCEDURE: XR HAND RT MIN 3V INDICATIONS: right middle finger swelling TECHNIQUE: 3 views of the hand(s) acquired. COMPARISON: None. FINDINGS: Bones: No fracture or dislocation. Dorsal ulnar sharply marginated erosion with overlying soft tissue swelling at the long finger proximal interphalangeal joint. Severe degenerative arthrosis of the thumb carpometacarpal joint. Diffuse osseous demineralization. Soft tissues: Prominent soft tissue swelling of the long finger proximal interphalangeal joint. No radiopaque retained foreign body or gas foci. Vascular calcifications.. IMPRESSION: Soft tissue swelling and sharply marginated erosions of the long finger proximal interphalangeal joint, correlate for symptoms of gouty arthropathy versus septic arthritis. If indicated, this could be further evaluated with cross-sectional imaging. Severe degenerate arthrosis of the thumb carpometacarpal joint. Dictated by: Peter Delaney M.D. on 04/26/2025 at 12:42 Approved by: Peter Delaney M.D. on 04/26/2025 at 12:43
== END ==
LOC: RAD 10:17
PROVIDERS: PCP Internal Medicine; Referring Provider Internal Medicine; Visit Provider Internal Medicine
DX: M10.9 Gout, unspecified (principal); M18.11 Unilateral primary osteoarthritis of first carpometacarpal joint, right hand; M79.89 Other specified soft tissue disorders; I70.90 Unspecified atherosclerosis
CPT/HCPCS: 73130